=== PATIENT | male | born 1940 | race Caucasian/White ===

== ENCOUNTER → 2017-03-16 06:00 | Outpatient (REF) | payer MEDICARE, BC, SELFPAY ==
[2017-03-16 10:00] LABS: Hematocrit 36.6 % (40-54); Hemoglobin 12.3 g/dl (13.0-16.5); Mean Corp Hgb Conc 33.6 g/gl (32-36); Mean Corpuscular Volume 92.2 fL (80-94); Mean Platelet Vol. 12.2 fl (6.2-12.0); Platelet Count 181 K/mm3 (150-450); RBC Distribution Width CV 13.2 % (11.6-14.6); RBC Distribution Width SD 43.6 fl (35.1-43.9); Red Blood Count 3.97 M/mm3 (4.6-6.2); Scan Indicated on CBC? Y/N NO; White Blood Count 7.2 K/mm3 (4.4-11.0)
== END ==
LOC: OLS.WCC 06:00
PROVIDERS: Visit Provider Family Medicine
DX: Z79.899 Other long term (current) drug therapy (principal)
CPT/HCPCS: 36415; 85027

== ENCOUNTER → 2017-03-27 17:00 | Outpatient (REF) | payer MEDICARE, BC, SELFPAY ==
[2017-03-27 18:25] LABS: Color, Urine Yellow (Yellow); Glucose, Dipstick Normal (Normal); Ketone-Dipstick 5 mg/dl (Negative); Leukocyte Esterase-Dipstick Negative /ul (Negative); Nitrite-Dipstick Negative (Negative); Occult Blood-Urine 10 /ul (Negative); Protein-Dipstick 100 mg/dl (Negative); Specific Gravity, Urine 1.025 (1.002-1.030); Urine Clarity Sl. Cloudy (Clear); Urine Urobilinogen Normal (Normal)
[2017-03-27 18:27] LABS: Urine Bilirubin Dipstick 1 mg/dL (Negative)
== END ==
LOC: OLS.WCC 17:00
PROVIDERS: Visit Provider Family Medicine
DX: N39.0 Urinary tract infection, site not specified (principal)
CPT/HCPCS: 81002; 87077; 87086; 87088

== ENCOUNTER → 2017-06-30 05:00 | Outpatient (REF) | payer MEDICARE, SELFPAY ==
[2017-06-30 08:20] LABS: Hemoglobin A1c 6.2 % (4.2-6.3)
[2017-06-30 08:27] LABS: AST(SGOT) 14 U/L (15-37); Alanine Aminotransfer ALT/SGPT 16 U/L (16-61); Albumin, Serum 3.4 g/dL (3.2-5.0); Alkaline Phosphatase 73 U/L (45-117); Anion Gap 8 (5-15); BUN 21 mg/dL (7-18); Bilirubin, Direct < 0.05 mg/dL (0.00-0.30); Calcium,Total 8.4 mg/dL (8.5-10.1); Chloride 108 mmol/L (98-107); Cholesterol 95 mg/dL (200); Creatinine, Serum 0.96 mg/dL (0.70-1.30); EST Glomerular Filtration Rate 81 mL/min (>60); Est Glom Filt Rate - Afr Amer 98 mL/min (>60); Globulin 2.9 g/dL (2.2-4.2); Glucose 98 mg/dL (74-106); High Density Lipoprotein 42 mg/dL; Potassium 4.3 mmol/L (3.5-5.1); Protein, Total 6.3 g/dL (6.4-8.2); Sodium Level 141 mmol/L (136-145); Triglycerides 312 mg/dL; Very Low Density Lipoprotein 62 mg/dL (5-40)
[2017-07-02 15:01] LABS: KEPPRA (LEVETIRACETAM) 20.4 ug/mL (10.0-40.0)
== END ==
LOC: OLS.WCC 05:00
PROVIDERS: Visit Provider Family Medicine
DX: E11.9 Type 2 diabetes mellitus without complications (principal); R56.9 Unspecified convulsions; E78.5 Hyperlipidemia, unspecified; Z79.899 Other long term (current) drug therapy
CPT/HCPCS: 36415; 80048; 80061; 80076; 80177; 83036

== ENCOUNTER → 2017-09-01 05:00 | Outpatient (REF) | payer MEDICARE, SELFPAY ==
[2017-09-01 08:30] LABS: Hematocrit 32.2 % (40-54); Hemoglobin 10.6 g/dl (13.0-16.5); Mean Corp Hgb Conc 32.9 g/gl (32-36); Mean Corpuscular Hgb 30.9 pg (27.0-32.0); Mean Corpuscular Volume 93.9 fL (80-94); Platelet Count 171 K/mm3 (150-450); RBC Distribution Width CV 13.2 % (11.6-14.6); RBC Distribution Width SD 43.9 fl (35.1-43.9); Red Blood Count 3.43 M/mm3 (4.6-6.2)
[2017-09-01 08:32] LABS: Scan Indicated on CBC? Y/N NO
[2017-09-04 14:02] LABS: Phenobarbital,Serum 4 ug/mL (15-40); Primidone, Serum 4.1 ug/mL (5.0-12.0)
== END ==
LOC: OLS.WCC 05:00
PROVIDERS: Visit Provider Family Medicine
DX: R56.9 Unspecified convulsions (principal); Z79.899 Other long term (current) drug therapy
CPT/HCPCS: 36415; 80184; 80188; 85027

== ENCOUNTER 2017-09-23 11:11 | Inpatient (IN) | payer MEDICARE, SELFPAY ==
[2017-09-23] VITALS (14 sets, daily range): BP systolic 118–145; BP diastolic 63–101; PULSE 70–100; RESP 14–22; TEMP 35.9–36.5; O2SAT 93–98; BMI 25.0; BMI 26.8
--- NOTE | 2017-09-23 11:20 | EKG12_ITS ---
Test Reason : LOC Blood Pressure : / mmHG Vent. Rate : 077 BPM Atrial Rate : 077 BPM P-R Int : 166 ms QRS Dur : 092 ms QT Int : 396 ms P-R-T Axes : 049 005 035 degrees QTc Int : 448 ms Normal sinus rhythm Low voltage QRS (limb leads) Confirmed by RAFAEL COLVIN, ABDELRAHMAN ([id number]), manager editorial DEEPTI ERAZO ([id number] on 09/25/2017 2:38:45 PM Referred By: DEAN Confirmed By:ABDELRAHMAN HALL MD
--- NOTE | 2017-09-23 11:35 | RAD_ITS ---
STUDY: X-RAY CHEST REASON FOR EXAM: Male, 77 years old. PT BROUGHT IN BY EMS FROM [facility] FOR DECREASED LOC. PER [facility] PT WAS NORMAL AT 0910 TODAY AND THEN BECAME LETHARGIC ATOX2 AND HAD A BP OF 59/24. HX DEMENTIA, HTN, COPD TECHNIQUE: Single AP portable view of the chest. COMPARISON: None. FINDINGS: The lungs are clear and expanded. There is no demonstrated pleural abnormality. Normal size heart. Normal mediastinum and caitie. Normal visualized pulmonary arteries. There is atherosclerotic tortuosity of the aortic arch and descending thoracic aorta. There are diffuse degenerative changes of the visualized thoracic spine. There is degenerative osteoarthritis of the bilateral shoulders. There is no demonstrated abnormality of the visualized soft tissue structures of the upper abdomen. RAD/Chest 1 View (Portable) IMPRESSION: Degenerative changes, as described above. No demonstrated acute cardiopulmonary process. Electronically Signed: Jose Vincent MD at 12:09 EDT Tel , Service support ,
[2017-09-23 11:53] LABS: Absolute Neutrophil Count 5.7 X10^3/uL (2.0-7.7); Basophil# 0.02 X10^3/uL; Basophil% 0.3 % (0-1); Eosinophil# 0.03 X10^3/uL; Eosinophils% 0.4 % (0-5); Hematocrit 33.1 % (40-54); Hemoglobin 10.8 g/dl (13.0-16.5); Lymphocyte % 14.9 % (19-41); Mean Corp Hgb Conc 32.6 g/gl (32-36); Mean Corpuscular Hgb 30.3 pg (27.0-32.0); Mean Corpuscular Volume 92.7 fL (80-94); Mean Platelet Vol. 11.3 fl (6.2-12.0); Monocyte# 0.51 X10^3/uL; Monocyte% 6.9 % (0-10); Neutrophil # 5.72 X10^3/uL (2.7-7.7); Neutrophil % 77.4 % (47-70); Platelet Count 176 K/mm3 (150-450); RBC Distribution Width CV 13.7 % (11.6-14.6); Red Blood Count 3.57 M/mm3 (4.6-6.2); White Blood Count 7.4 K/mm3 (4.4-11.0)
[2017-09-23 11:54] LABS: POSITIVE COUNT NO; POSITIVE DIFFERENTIAL NO; POSITIVE MORPHOLOGY NO
[2017-09-23] MEDS: 0.9% Normal Saline 1,000 ML IV.SOLN. 2000 ML IV (11:58)
[2017-09-23 12:07] LABS: ALB/GLOB Ratio 1.1 RATIO (0.9-2.4); AST(SGOT) 12 U/L (15-37); Alanine Aminotransfer ALT/SGPT 13 U/L (16-61); Albumin, Serum 3.4 g/dL (3.2-5.0); Alkaline Phosphatase 86 U/L (45-117); Anion Gap 10 (5-15); BUN 19 mg/dL (7-18); BUN/Creat Ratio 16.8 RATIO (10-20); Calcium,Total 8.4 mg/dL (8.5-10.1); Chloride 103 mmol/L (98-107); Creatinine, Serum 1.13 mg/dL (0.70-1.30); EST Glomerular Filtration Rate 67 mL/min (>60); Est Glom Filt Rate - Afr Amer 81 mL/min (>60); Estimated Creatinine Clearance 57.42 ml/min; Glucose 160 mg/dL (74-106); International Normalized Ratio 1.1; Partial Thromboplast Time 25.8 Seconds (24.1-36.2); Potassium 5.5 mmol/L (3.5-5.1); Protein, Total 6.4 g/dL (6.4-8.2); Prothrombin Time (Protime)PT. 13.7 SECONDS (11.7-14.9); Sodium Level 138 mmol/L (136-145)
--- NOTE | 2017-09-23 12:34 | ED.RN ---
DR DUMONT NOTIFIED OF LACTIC RESULTS
[2017-09-23 12:35] LABS: Lactic Acid 4.7 mmol/L (0.4-2.0)
[2017-09-23 13:11] LABS: Bacteria 0 SEEN /hpf (None Seen); Red Blood Cells-Urine 0 SEEN /hpf (0-5)
[2017-09-23 13:25] LABS: Color, Urine Yellow (Yellow); Glucose, Dipstick Normal (Normal); Ketone-Dipstick 5 mg/dl (Negative); Leukocyte Esterase-Dipstick Negative /ul (Negative); Nitrite-Dipstick Negative (Negative); Occult Blood-Urine Negative /ul (Negative); Protein-Dipstick 30 mg/dl (Negative); Urine Bilirubin Dipstick Negative (Negative); Urine Clarity Clear (Clear); Urine Urobilinogen Normal (Normal)
[2017-09-23 13:40] LABS: Squamous Epithelial Cells - UA 0-5 SEEN /hpf (0-5); White Blood Cells 0-5 SEEN /hpf (0-5)
[2017-09-23 13:41] LABS: Hyaline Cast 0-5 SEEN /lpf (0-5); Mucous, Urine 1+ /hpf (<or=2+)
[2017-09-23] MEDS: 0.9% Normal Saline 1,000 ML 999 ML IV ×2 (14:28)
--- NOTE | 2017-09-23 14:54 | ED.VISSUMM ---
- ER Visit Summary Date of Service: 09/23/17 Chief Complaint: Low blood pressure History of Present Illness: The patient is a 77 M presenting from assisted living with low blood pressure. Reportedly his pressure was in the 70s systolic. He has no specific complaints. Denies pain. Per paramedics he was diaphoretic and hypotensive on arrival. Physical Examination: Vitals are within normal limits on arrival. He does appear somewhat dehydrated. Neck is supple. Heart tones are regular and without murmur. Lungs are clear bilaterally. Abdomen is soft and nontender. No focal or lateralizing neuro findings. He is at baseline mental status according to staff Test Results: His lactic acid is elevated at 0.7. White blood cell count is normal. Creatinine normal. No fever here. He was given several liters of IV fluid and remained normotensive. He has no obvious evidence of infection. Chest x-ray is clear and urine does not appear infected. Urine and blood cultures were both sent. Emergency Department Course and Treatment: His blood pressure remained normal with IV fluids. He does appear dehydrated. With a lactic acid of 4.7, and no obvious evidence of infection, I do think the safest approach is to hospitalize him overnight for observation and continued IV fluids with a repeat lactic acid. Cultures were sent. Treatment Plan: Admit to PCU. Disposition: Admit to PCU Impression: Initial encounter acute hypotension of uncertain etiology, lactic acidosis, dehydration This note was generated with [employer] dictation software. It may contain incorrect words, spelling, and punctuation that were not noted in review of the chart prior to signing ED Disposition - Plan for ED Patient: Chief Complaint: Alt LOC Referrals: Kelvin Trammell MD [Primary Care Provider] -
--- NOTE | 2017-09-23 14:58 | NURSING ---
HOSPITALIST PA IN ER
--- NOTE | 2017-09-23 14:59 | NURSING ---
PCU HYPOTENSION, DEHYDRATION, LACTIC ACIDOSIS DUSSEL/ ASHELFAH
--- NOTE | 2017-09-23 15:12 | PCM.HP.STD ---
<Verónica Monroe - Last Filed: 09/23/17 15:34> Problem List (1) Chronic airway obstruction Status: Chronic Comment: mild 120 PY hx smoking (2) Coronary artery disease Status: Chronic (3) History of TIAs Status: Chronic (4) Seizure disorder Status: Chronic (5) Hyperlipidemia Status: Chronic (6) Syncope Status: Resolved Comment: resolved. vasovagal (7) Dehydration Status: Acute (8) Normochromic normocytic anemia Status: Chronic (9) Parkinson disease Status: Chronic (10) Diabetic peripheral neuropathy Status: Chronic (11) Gait abnormality Status: Chronic Comment: History of.. 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 The patient is a 77 year old M who presents to Emergency Room due to low blood pressure at Assisted Living Facility. Blood pressure at nursing facility reported to be 70s systolically. Patient states he was kind of out of it earlier today and does not recall any specific events that brought him to ER. He states he was told he is dehydrated. Patient denies syncope, dizziness, fall. Denies recent illness. Denies nausea, vomiting, diarrhea. Denies cough, fever, chills. He has a past medical history of hypertension, hyperlipidemia, coronary artery disease, type 2 diabetes mellitus, Alzheimer's dementia, history of spontaneous intraparenchymal intracranial hemorrhage due to cerebral AVM, history of ischemic colitis, Parkinson's disease, chronic anemia, seizure disorder, COPD, chronic kidney disease. Past Medical History Past Medical History (Chronic Problems): Chronic Problems Chronic airway obstruction (Chronic) mild 120 PY hx smoking Coronary artery disease (Chronic) History of TIAs (Chronic) Seizure disorder (Chronic) Hyperlipidemia (Chronic) Normochromic normocytic anemia (Chronic) Parkinson disease (Chronic) Diabetic peripheral neuropathy (Chronic) Gait abnormality (Chronic) History of.. 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 CVD (cerebrovascular disease) (Chronic) Hypertension (Chronic) Diabetes mellitus type 2 in nonobese (Chronic) Allergies PPD Adverse Reaction (Uncoded 09/23/17 11:20) Other Home Medications: Ambulatory Orders Medication Instructions Recorded Atorvastatin Calcium [Lipitor] 40 mg PO QHS 08/31/15 Donepezil HCl 10 mg PO QHS 08/31/15 Ferrous Sulfate 325 mg PO DAILY 08/31/15 levETIRAcetam tablet [Keppra 500 mg PO BID 08/31/15 tablet] Metoprolol(XL)Succ [Toprol Xl 25 mg PO DAILY 09/01/15 (Beta Jeanette)] Multivitamins,Ther W-Minerals 1 tablet PO DAILY 09/01/15 [Multivitamin With Minerals] Sitagliptin Phosphate [Januvia] 50 mg PO DAILY 09/01/15 Buspirone HCl 15 mg PO BID 10/23/15 Metformin HCl [Glucophage] 1,000 mg PO BIDCM 10/23/15 Omeprazole [Prilosec] 20 mg PO DAILY 10/23/15 Acetaminophen [Tylenol] 650 mg PO Q4H PRN 09/23/17 Carbidopa/Levodopa [Carbidopa-Levo 1 each PO TID 09/23/17 25-100 mg Odt] Docusate Sodium [Colace] 200 mg PO QHS 09/23/17 Escitalopram Oxalate [Lexapro] 5 mg PO DAILY 09/23/17 Guaifenesin [Robitussin] 10 ml PO Q4H PRN PRN 09/23/17 Hydrocodone/Acetaminophen [[place] 1 each PO Q4H PRN 09/23/17 5-325 Tablet] Primidone [Mysoline] 50 mg PO BID 09/23/17 Tamsulosin HCl [Flomax] 0.4 mg PO DAILY@1730 09/23/17 Surgical History: cholecystectomy, TURP, - - craniontomy for R AVM 1997 Psychiatric History: No pertinent psych hx Lives: - - With in Assisted Living Facility Smoking Status: Former smoker Alcohol: None Drugs: None - *Family History Maternal History Items: No pertinent history, - - no premature cardiac Paternal History Items: No pertinent history, - - no premature cardiac Review of Systems Constitutional: Denies: Chills, Fever, Weight Change HEENT: Denies: Head Aches, Sinus Congestion, Sinus Drainage Cardiovascular: Denies: Chest Pain, Edema, Palpitations, Syncope Respiratory: Denies: Cough, Shortness of breath at rest, Sputum production Gastrointestinal: Denies: Abdominal Pain, Nausea, Vomiting Genitourinary: Denies: Dysuria Musculoskeletal: Denies: Joint Pain, Joint Tenderness Skin: Denies: Rash, Wounds Neurological: Denies: Numbness, Tingling, Focal weakness Psychiatric: Denies: Anxiety, Depression, Homicidal Ideations, Suicidal Ideations Hematologic/ Lymphatic: Denies: Easy Bruising, Easy Bleeding VTE Information - Inpt Only VTE Present on Admission: No VTE Mechan Device Prophylaxis: None VTE Pharm Prophylaxis ordered?: Yes - Physical Exam General: Alert, Cooperative, No apparent distress, - - Pleasant HEENT: Atraumatic, PERRLA, EOMI, Normocephalic Oral: Dry Mucosa Neck: Supple, No JVD, Negative Carotid Bruits Lungs: Clear to auscultation, Normal air movement Cardiovascular: Regular rate, Regular Rhythm, Normal S1, Normal S2, No murmurs Abdomen: Bowel Sounds Present, Soft, Non Tender, Non-Distended Extremities: No clubbing, No cyanosis, No edema, Capillary Refill Less than 3 Seconds Skin: No rashes, No breakdown Musculoskeletal: No Tenderness to Palpation of Joints or Extremities Neurological: Cranial nerves II-XII grossly intact, Neuro grossly intact Psych/Mental Status: Normal Affect, Appropriate Vital Signs Temp Pulse Resp BP Pulse Ox 97.0 F L 76 14 132/67 H 96 09/23/17 14:28 09/23/17 14:28 09/23/17 14:28 09/23/17 14:28 09/23/17 14:28 Oxygen Flow Rate (L/min) 2 Oxygen Delivery Method Room Air Weight: 79.1 kg Body Mass Index (BMI) 25.0 Finger Stick Blood Glucose 194 Laboratory Tests Past 24 Hrs 09/23/17 09/23/17 09/23/17 11:20 11:20 11:20 WBC 7.4 RBC 3.57 L Hgb 10.8 L Hct 33.1 L MCV 92.7 MCH 30.3 MCHC 32.6 RDW 13.7 RDW Differential 46.0 H Plt Count 176 MPV 11.3 Immature Gran % (Auto) 0.100 Neut % (Auto) 77.4 H Lymph % (Auto) 14.9 L [place] % (Auto) 6.9 Eos % (Auto) 0.4 Baso % (Auto) 0.3 Absolute Neuts (auto) 5.7 Absolute Lymphs (auto) 1.10 Total Counted Not Reportable PT 13.7 INR 1.1 APTT 25.8 Sodium 138 Potassium 5.5 H Chloride 103 Carbon Dioxide 25.0 Anion Gap 10 BUN 19 H Creatinine 1.13 Estim Creat Clear Calc 57.42 Est GFR (MDRD) Af Amer 81 Est GFR (MDRD) Non-Af 67 BUN/Creatinine Ratio 16.8 Glucose 160 H Lactic Acid Calcium 8.4 L Total Bilirubin 0.20 AST 12 L ALT 13 L Alkaline Phosphatase 86 Troponin I < 0.015 Total Protein 6.4 Albumin 3.4 Globulin 3.0 Albumin/Globulin Ratio 1.1 Urine Color Urine Clarity Urine pH Ur Specific [place] Urine Protein Urine Glucose (UA) Urine Ketones Urine Occult Blood Urine Nitrite Urine Bilirubin Urine Urobilinogen Ur Leukocyte Esterase Urine RBC Urine WBC Ur Squamous Epith Cells Urine Bacteria Hyaline Casts Urine Mucus 09/23/17 09/23/17 11:32 13:05 WBC RBC Hgb Hct MCV MCH MCHC RDW RDW Differential Plt Count MPV Immature Gran % (Auto) Neut % (Auto) Lymph % (Auto) [place] % (Auto) Eos % (Auto) Baso % (Auto) Absolute Neuts (auto) Absolute Lymphs (auto) Total Counted PT INR APTT Sodium Potassium Chloride Carbon Dioxide Anion Gap BUN Creatinine Estim Creat Clear Calc Est GFR (MDRD) Af Amer Est GFR (MDRD) Non-Af BUN/Creatinine Ratio Glucose Lactic Acid 4.7 H* Calcium Total Bilirubin AST ALT Alkaline Phosphatase Troponin I Total Protein Albumin Globulin Albumin/Globulin Ratio Urine Color Yellow Urine Clarity Clear Urine pH 5.0 Ur Specific [place] 1.010 Urine Protein 30 H Urine Glucose (UA) Normal Urine Ketones 5 H Urine Occult Blood Negative Urine Nitrite Negative Urine Bilirubin Negative Urine Urobilinogen Normal Ur Leukocyte Esterase Negative Urine RBC 0 SEEN Urine WBC 0-5 SEEN Ur Squamous Epith Cells 0-5 SEEN Urine Bacteria 0 SEEN Hyaline Casts 0-5 SEEN Urine Mucus 1+ Assessment/Plan All Active Problems Dehydration (Acute) Cognitive deficits (Resolved) History of Hematemesis (Resolved) History of Ischemic Colitis (Resolved) History of tobacco use (Resolved) History of upper gastrointestinal bleeding (Resolved) Syncope (Resolved) 1. Hypotension, secondary to mild dehydration-patient denies recent illness. Denies nausea, vomiting, diarrhea. Hypotension resolved after IV fluids. Continue IV fluids. Monitor blood pressure. Complete orthostatic vitals in a.m. 2. Hyperkalemia-secondary to #1. Repeat potassium this evening and in a.m. 3. Lactic acidosis-no signs of infectious etiology. Suspect secondary to #1. Repeat lactic acid per protocol. Afebrile. Chest x-ray shows no acute process. Urinalysis unremarkable. Blood and urine cultures pending. Continue IV fluids as noted above. 4. Alzheimer's dementia/Parkinson's disease-resides with in assisted living facility. PT/OT. Continue home regimen including buspirone, carbidopa-levo, donepezil, Lexapro. 5. Coronary artery disease-denies chest pain. EKG without evidence of ischemia. Troponin negative. Continue statin, metoprolol. 6. Type 2 diabetes mellitus-hold metformin. Continue Januvia. Accu-Cheks before meals at bedtime with sliding scale insulin. Hemoglobin A1c in June 2017 6.2%. 7. Chronic kidney disease stage II-stable, monitor BMP. 8. Hypertension-continue home metoprolol regimen. 9. Hyperlipidemia-continue statin. 10. Mild chronic COPD-no acute exacerbation. 11. History of spontaneous intraparenchymal intracranial hemorrhage due to cerebral AVM 12. Chronic normochromic normocytic anemia-continue iron supplementation. 13. History of seizure disorder-continue home Keppra, primidone regimen. 14. History of ischemic colitis 15. BPH-continue home Flomax regimen. 16. GERD-continue PPI. DVT prophylaxis-heparin subcu. This patient was seen by [facility] under the supervision of Dr. Lorenzo. <Ashish Lorenzo - Last Filed: 09/23/17 15:43> History of Present Illness The patient is a 77 year old M [] Past Medical History Allergies PPD Adverse Reaction (Uncoded 09/23/17 11:20) Other - Physical Exam Vital Signs Temp Pulse Resp BP Pulse Ox 97.0 F L 76 14 132/67 H 96 09/23/17 14:28 09/23/17 14:28 09/23/17 14:28 09/23/17 14:28 09/23/17 14:28 Oxygen Flow Rate (L/min) 2 Oxygen Delivery Method Room Air Weight: 174 lb 6.17 oz Body Mass Index (BMI) 25.0 Finger Stick Blood Glucose 194 Laboratory Tests Past 24 Hrs 09/23/17 09/23/17 09/23/17 11:20 11:20 11:20 WBC 7.4 RBC 3.57 L Hgb 10.8 L Hct 33.1 L MCV 92.7 MCH 30.3 MCHC 32.6 RDW 13.7 RDW Differential 46.0 H Plt Count 176 MPV 11.3 Immature Gran % (Auto) 0.100 Neut % (Auto) 77.4 H Lymph % (Auto) 14.9 L [place] % (Auto) 6.9 Eos % (Auto) 0.4 Baso % (Auto) 0.3 Absolute Neuts (auto) 5.7 Absolute Lymphs (auto) 1.10 Total Counted Not Reportable PT 13.7 INR 1.1 APTT 25.8 Sodium 138 Potassium 5.5 H Chloride 103 Carbon Dioxide 25.0 Anion Gap 10 BUN 19 H Creatinine 1.13 Estim Creat Clear Calc 57.42 Est GFR (MDRD) Af Amer 81 Est GFR (MDRD) Non-Af 67 BUN/Creatinine Ratio 16.8 Glucose 160 H Lactic Acid Calcium 8.4 L Total Bilirubin 0.20 AST 12 L ALT 13 L Alkaline Phosphatase 86 Troponin I < 0.015 Total Protein 6.4 Albumin 3.4 Globulin 3.0 Albumin/Globulin Ratio 1.1 Urine Color Urine Clarity Urine pH Ur Specific [place] Urine Protein Urine Glucose (UA) Urine Ketones Urine Occult Blood Urine Nitrite Urine Bilirubin Urine Urobilinogen Ur Leukocyte Esterase Urine RBC Urine WBC Ur Squamous Epith Cells Urine Bacteria Hyaline Casts Urine Mucus 09/23/17 09/23/17 11:32 13:05 WBC RBC Hgb Hct MCV MCH MCHC RDW RDW Differential Plt Count MPV Immature Gran % (Auto) Neut % (Auto) Lymph % (Auto) [place] % (Auto) Eos % (Auto) Baso % (Auto) Absolute Neuts (auto) Absolute Lymphs (auto) Total Counted PT INR APTT Sodium Potassium Chloride Carbon Dioxide Anion Gap BUN Creatinine Estim Creat Clear Calc Est GFR (MDRD) Af Amer Est GFR (MDRD) Non-Af BUN/Creatinine Ratio Glucose Lactic Acid 4.7 H* Calcium Total Bilirubin AST ALT Alkaline Phosphatase Troponin I Total Protein Albumin Globulin Albumin/Globulin Ratio Urine Color Yellow Urine Clarity Clear Urine pH 5.0 Ur Specific [place] 1.010 Urine Protein 30 H Urine Glucose (UA) Normal Urine Ketones 5 H Urine Occult Blood Negative Urine Nitrite Negative Urine Bilirubin Negative Urine Urobilinogen Normal Ur Leukocyte Esterase Negative Urine RBC 0 SEEN Urine WBC 0-5 SEEN Ur Squamous Epith Cells 0-5 SEEN Urine Bacteria 0 SEEN Hyaline Casts 0-5 SEEN Urine Mucus 1+ Assessment/Plan Hospitalist note: I am seeing this patient in conjunction with Verónica Monroe. I independently seen and examined the patient. History and physical, laboratory data and imaging studies reviewed and I agree with above admission and treatment plan. Patient was brought to the ER from assisted living because of low blood pressure, reportedly his systolic blood pressure was in 70s. At this time, he has no complaints. He mentioned that he was dehydrated and he was about to pass out or actually passed out which is not clear. No chest pain or shortness of breath. Denied abdominal pain, nausea vomiting. Denies constipation or diarrhea. He had a history of seizure disorder and he has been on Keppra and primidone and his seizures seem to be under control. He had a history of type 2 diabetes mellitus and he has been on metformin with good control, most recent hemoglobin A1c was on June, and it was 6.2. He had a history of dementia and he has been on donepezil and carbidopa levodopa. In the emergency department, his blood pressure was stable after he received IV fluids by paramedics, other vital signs were stable. His routine blood work was remarkable for hemoglobin of 10.8 g/dL, potassium 5.5. Lactic acid was 4.7. LFT was unremarkable. Urine analysis revealed no evidence of acute cystitis. Troponin was negative. Chest x-ray showed no acute infiltrate, no evidence of pneumonia. EKG revealed normal sinus rhythm, normal QRS, normal QTC and no acute ischemic changes. - Physical Exam General: Alert, Cooperative, No apparent distress. HEENT: Atraumatic, PERRLA, EOMI. Neck: Supple, No JVD, Negative Carotid Bruits, Trachea Midline, Thyroid Normal. Lungs: Clear to auscultation, Normal air movement, No rhonchi, No wheeze, No rales. Cardiovascular: Regular rate, Regular Rhythm, Normal S1, Normal S2, PMI Normal. Abdomen: Bowel Sounds Present, Soft, Non Tender, Non-Distended, No Hepato-splenomegaly. Extremities: No clubbing, No cyanosis, No edema Skin: No rashes, No breakdown Neurological: Neuro grossly intact, cranial nerves are intact, normal power. Vital Signs are stable at this time. Assessment and plan: #1 hypovolemic shock: With transient hypotension likely due to dehydration. No evidence of acute illness. Reportedly, systolic blood pressure was in the 70s at the assisted living, improved with IV fluids and stable at this time. His lactic acid is 4.7. No evidence of infection. He received a total of 4 L of IV fluids. Plan to admit to PCU, cardiac monitoring, continue maintenance IV fluids, repeat lactic acid in 3 hours, repeat orthostatic vitals tomorrow morning, repeat CBC and BMP tomorrow morning, PT OT evaluation and treatment. #2 lactic acidosis: Again, likely due to hypotension. No evidence of infection. Urine and blood culture sent. No indication for IV antibiotics. Plan to continue IV fluids, repeat lactic acid in 3 hours. #3 mild hyperkalemia: Without EKG changes. Potassium is 5.5. Plan for IV fluids, repeat potassium at 8 PM tonight. #4 other chronic medical problems: Stable, continue home medications as above. This note was generated with [employer] software. It may contain incorrect words, spelling, and punctuation that were not noted in checking the note before signing. Code Visit Inpatient E&M: 26894 Init Hosp L3
[2017-09-23 15:46] LABS: Reflex Lactate? Y
--- NOTE | 2017-09-23 15:54 | CM.ED ---
CM Initial Assessment: Patient resides at [facility] and confirms that he would like to return there upon discharge from the hospital. Patient shares a room, at [facility], with his . Call placed to [facility] and spoke with RN, Rafael. Updates provided and RN states he will notify the patient's of admission. No POA/Living will found on echart. DC Plan: Return to [facility].
--- NOTE | 2017-09-23 16:08 | NURSING ---
REPORT CALLED TO ALVA VILLARREAL AT [facility].
[2017-09-23] MEDS: 0.9% Normal Saline 1,000 ML 150 ML IV (16:17)
[2017-09-23 17:06] LABS: Bedside Glucose 122 mg/dL (70-110)
[2017-09-23 17:10] LABS: Lactic Acid 2.4 mmol/L (0.4-2.0)
[2017-09-23] MEDS: metFORMIN HCl 1,000 MG Tablet 1000 MG PO (18:20)
[2017-09-23 20:18] LABS: Potassium 4.9 mmol/L (3.5-5.1)
[2017-09-23] MEDS: Donepezil HCl 10 MG Tablet PO (21:20)
[2017-09-23] MEDS: Atorvastatin Calcium 40 MG Tablet PO (21:20)
[2017-09-23] MEDS: Docusate Sodium 100 MG Capsule 200 MG PO (21:20)
[2017-09-23] MEDS: levETIRAcetam 500 MG Tablet PO (21:20)
[2017-09-23] MEDS: Primidone 50 MG Tablet PO (21:21)
[2017-09-23] MEDS: busPIRone 15 MG TABLET PO (21:21)
[2017-09-23] MEDS: Carbidopa/Levodopa 25/100 Tablet PO (21:22)
[2017-09-23 22:41] LABS: Bedside Glucose 139 mg/dL (70-110)
[2017-09-24] VITALS (13 sets, daily range): BP systolic 122–194; BP diastolic 60–81; PULSE 61–80; RESP 16–18; TEMP 36.6–36.9; O2SAT 93–97
[2017-09-24] MEDS: 0.9% Normal Saline 1,000 ML 100 ML IV ×3 (03:07→21:48)
[2017-09-24 06:27] LABS: Absolute Neutrophil Count 4.3 X10^3/uL (2.0-7.7); Basophil# 0.01 X10^3/uL; Basophil% 0.2 % (0-1); Eosinophil# 0.14 X10^3/uL; Eosinophils% 2.2 % (0-5); Hematocrit 27.7 % (40-54); Lymphocyte % 17.1 % (19-41); Mean Corp Hgb Conc 32.5 g/gl (32-36); Mean Corpuscular Hgb 30.7 pg (27.0-32.0); Mean Corpuscular Volume 94.5 fL (80-94); Mean Platelet Vol. 11.2 fl (6.2-12.0); Neutrophil # 4.27 X10^3/uL (2.7-7.7); Neutrophil % 66.3 % (47-70); Platelet Count 155 K/mm3 (150-450); RBC Distribution Width CV 13.5 % (11.6-14.6); RBC Distribution Width SD 44.5 fl (35.1-43.9); Red Blood Count 2.93 M/mm3 (4.6-6.2); White Blood Count 6.4 K/mm3 (4.4-11.0)
[2017-09-24 06:41] LABS: Anion Gap 6 (5-15); BUN 11 mg/dL (7-18); BUN/Creat Ratio 16.5 RATIO (10-20); Calcium,Total 7.5 mg/dL (8.5-10.1); Chloride 112 mmol/L (98-107); Creatinine, Serum 0.67 mg/dL (0.70-1.30); EST Glomerular Filtration Rate 123 mL/min (>60); Est Glom Filt Rate - Afr Amer 149 mL/min (>60); Estimated Creatinine Clearance 52.62 ml/min; Glucose 102 mg/dL (74-106); Potassium 4.3 mmol/L (3.5-5.1); Sodium Level 142 mmol/L (136-145)
[2017-09-24 06:57] LABS: POSITIVE COUNT NO; POSITIVE DIFFERENTIAL NO; POSITIVE MORPHOLOGY NO
[2017-09-24] MEDS: Carbidopa/Levodopa 25/100 Tablet PO ×3 (07:18→21:47)
[2017-09-24 07:20] LABS: Bedside Glucose 110 mg/dL (70-110)
[2017-09-24] MEDS: Ferrous Sulfate 325 MG Tablet PO (08:48)
[2017-09-24] MEDS: metFORMIN HCl 1,000 MG Tablet 1000 MG PO ×2 (08:48→16:23)
[2017-09-24] MEDS: levETIRAcetam 500 MG Tablet PO ×2 (08:49→21:48)
[2017-09-24] MEDS: Escitalopram Oxalate 10 MG Tablet 5 MG PO (08:49)
[2017-09-24] MEDS: busPIRone 15 MG TABLET PO ×2 (08:49→21:47)
[2017-09-24] MEDS: Enoxaparin 30 MG/0.3 ML Syringe SC (08:50)
[2017-09-24] MEDS: Pantoprazole Sodium 20 MG Tablet PO (08:50)
[2017-09-24] MEDS: Primidone 50 MG Tablet PO ×2 (08:50→21:47)
[2017-09-24] MEDS: Metoprolol(XL)Succ 25 MG Tablet PO (08:50)
[2017-09-24] MEDS: LINAGLIPTIN 5 MG TABLET PO (08:51)
--- NOTE | 2017-09-24 11:39 | CASEMGMT ---
Patient is from [facility]. MODESTA spoke with Adilene at [facility] and he does not need a pre-cert to return. MODESTA faxed her updates. After talking with physician patient will not be d/c today, but possibly tomorrow. MODESTA left a message for Adilene letting her know this information. Plan: Return to [facility] under intermediate level of care. Kelle NGUYEN MSW
[2017-09-24 11:51] LABS: Bedside Glucose 153 mg/dL (70-110)
--- NOTE | 2017-09-24 13:15 | CHAPLAIN ---
Type of Pastoral Visit _x__ Initial Visit ___ Follow-up Visit ___ On-call Visit ___ General Patient Visit ___ Spiritual Assessment ___ Family Conference ___ Bereavement ___ Rapid Response ___ Code Blue ___ Other (describe below) Pastoral Care Referral From _x__ Patient ___ Family ___ Nurse ___ Physician ___ Bakery Team Member ___ Seed Expert ___ Other (describe below) Sacrament/Intervention _x__ Active listening ___ Anointing ___ Restorationism ___ Bereavement ___ Communion _x__ Niki exploration ___ _x__ Life review _x__ Prayer ___ Reconciliation ___ Sacrament of Sick _x__ Supportive presence ___ Wedding ___ Other (describe below) Pastoral Comments patient expressed delight in talking with a joint cutter and expounded on his own niki; pt was not able to answer some basic questions about his own life; pt was able to talk about his mgmt consultant and family with clarity; pt requested a prayer
--- NOTE | 2017-09-24 14:20 | PCM.PROGNOTE ---
<Duke Oden - Last Filed: 09/24/17 14:20> Subjective: Thomas is confused today. He cannot tell me why he is here, where he came from, why he came in, where he normally lives. He appears to be comfortable. He has no complaints. He has no abdominal pain, he says he has not had a bowel movement in several days, he has no nausea or vomiting. He has no shortness of breath or chest pain. He is tolerating the catheter which he normally does not have-we will remove this today. - Physical Exam General: Alert, Cooperative, Confused, - - Oriented ?1 HEENT: Atraumatic, PERRLA, EOMI, Normocephalic Neck: Supple, No JVD, Negative Carotid Bruits Lungs: Clear to auscultation, Normal air movement Cardiovascular: Regular rate, No murmurs Abdomen: Bowel Sounds Present, Soft, Non Tender Extremities: No edema, Capillary Refill Less than 3 Seconds Skin: No rashes, No breakdown Musculoskeletal: No Tenderness to Palpation of Joints or Extremities Neurological: Cranial nerves II-XII grossly intact Psych/Mental Status: Normal Affect, Appropriate Vital Signs Temp Pulse Resp BP Pulse Ox 98.1 F 65 18 145/77 H 95 09/24/17 09:10 09/24/17 11:05 09/24/17 09:10 09/24/17 09:10 09/24/17 09:10 Oxygen Delivery Method Room Air Weight: 70.8 kg Body Mass Index (BMI) 26.8 Orthostatic Vital Signs Start: 09/24/17 07:09 Freq: q24h Status: Active Protocol: Activity Type Activity Date Activity User E-Sign Co-Sign Detail Recorded Client Recorded Date Recorded By Document 09/24/17 07:05 CAD [id number] 09/24/17 07:14 CAD 09/24/17 07:05 Orthostatic Vitals Standing -Blood Pressure (90/60-120/80) 135/60 H -Extremity Use Right Arm -Pulse Rate (60-100) 80 Sitting -Blood Pressure (90/60-120/80) 194/71 H -Extremity Use Right Arm -Pulse Rate (60-100) 64 Lying -Blood Pressure (90/60-120/80) 183/81 H -Extremity Use Right Arm -Pulse Rate (60-100) 71 Intake and Output for Last 24 Hours 09/22/17 09/23/17 09/24/17 23:59 23:59 23:59 Intake Total 353 / 353 2047 / 2047 Output Total 1075 / 1075 1475 / 1475 Balance -722 / -722 572 / 572 Laboratory Tests Past 24 Hrs 09/23/17 09/23/17 09/24/17 16:15 19:58 06:05 WBC 6.4 RBC 2.93 L Hgb 9.0 L Hct 27.7 L MCV 94.5 H MCH 30.7 MCHC 32.5 RDW 13.5 RDW Differential 44.5 H Plt Count 155 MPV 11.2 Immature Gran % (Auto) 0.200 Neut % (Auto) 66.3 Lymph % (Auto) 17.1 L [place] % (Auto) 14.0 H Eos % (Auto) 2.2 Baso % (Auto) 0.2 Absolute Neuts (auto) 4.3 Absolute Lymphs (auto) 1.10 Total Counted Not Reportable Sodium Potassium 4.9 Chloride Carbon Dioxide Anion Gap BUN Creatinine Estim Creat Clear Calc Est GFR (MDRD) Af Amer Est GFR (MDRD) Non-Af BUN/Creatinine Ratio Glucose Lactic Acid 2.4 H Calcium 09/24/17 06:05 WBC RBC Hgb Hct MCV MCH MCHC RDW RDW Differential Plt Count MPV Immature Gran % (Auto) Neut % (Auto) Lymph % (Auto) [place] % (Auto) Eos % (Auto) Baso % (Auto) Absolute Neuts (auto) Absolute Lymphs (auto) Total Counted Sodium 142 Potassium 4.3 Chloride 112 H Carbon Dioxide 24.0 Anion Gap 6 BUN 11 Creatinine 0.67 L Estim Creat Clear Calc 52.62 Est GFR (MDRD) Af Amer 149 Est GFR (MDRD) Non-Af 123 BUN/Creatinine Ratio 16.5 Glucose 102 Lactic Acid Calcium 7.5 L POC Glucose 09/24/17 09/24/17 09/23/17 11:27 07:06 21:18 POC Glucose 153 H 110 139 H 09/23/17 16:53 POC Glucose 122 H Medical Necessity - Tobacco Use Smoking Status: Former smoker Assessment/Plan All Active Problems Dehydration (Acute) Cognitive deficits (Resolved) History of Hematemesis (Resolved) History of Ischemic Colitis (Resolved) History of tobacco use (Resolved) History of upper gastrointestinal bleeding (Resolved) Syncope (Resolved) 1. Acute metabolic encephalopathy secondary to dehydration-improved. 2. Lactic acidosis secondary to above-resolved. UA negative. Afebrile, no white count. No events on tele. CXR neg. Hx ischemic colitis but no abdominal complaints, benign abdomen. 3. Transient hypotension-secondary to dehydration-resolved with IV bolus administration 4. Orthostatic hypotension-suspect secondary to Parkinson's autonomic dysfunction. 5. Hyperkalemia-resolved 6. Alzheimer's disease-very confused. Continue home meds. Avoid anticholinergics 7. CKD stage II-stable 8. Hypertension-monitor closely. 9. Hyperlipidemia-on statin 10. COPD-stable no respiratory complaints 11. Seizure disorder-continue home regimen 12. BPH-on Flomax-Clark out today with voiding trial. 13. Type 2 diabetes mellitus-Metformin held at admission, Tradjenta continued, plan to resume metformin at discharge 14. Other chronic medical conditions stable DVT prophylaxis: SCDs Discharge planning: If he remained stable overnight return to Assisted living / SNF tomorrow This patient was seen by Duke Oden PA-C under the supervision of Doctor Lucio. <Bernardo Valdes - Last Filed: 09/24/17 16:23> Subjective: Patient is confused and disoriented. His advanced dementia and lives in custodial. - Physical Exam General: Confused Lungs: No rhonchi, No wheeze, Diminished Cardiovascular: Regular rate, Normal S1, Normal S2, No murmurs Abdomen: Bowel Sounds Present, Soft, Non Tender Extremities: No edema Musculoskeletal: Arthritic Changes, Muscle Wasting Vital Signs Temp Pulse Resp BP Pulse Ox 98.5 F 62 16 122/70 H 97 09/24/17 15:10 09/24/17 15:10 09/24/17 15:10 09/24/17 15:10 09/24/17 15:10 Oxygen Delivery Method Room Air Weight: 156 lb 1.396 oz Body Mass Index (BMI) 26.8 Orthostatic Vital Signs Start: 09/24/17 07:09 Freq: q24h Status: Active Protocol: Activity Type Activity Date Activity User E-Sign Co-Sign Detail Recorded Client Recorded Date Recorded By Document 09/24/17 07:05 CAD [id number] 09/24/17 07:14 CAD 09/24/17 07:05 Orthostatic Vitals Standing -Blood Pressure (90/60-120/80) 135/60 H -Extremity Use Right Arm -Pulse Rate (60-100) 80 Sitting -Blood Pressure (90/60-120/80) 194/71 H -Extremity Use Right Arm -Pulse Rate (60-100) 64 Lying -Blood Pressure (90/60-120/80) 183/81 H -Extremity Use Right Arm -Pulse Rate (60-100) 71 Intake and Output for Last 24 Hours 09/22/17 09/23/17 09/24/17 23:59 23:59 23:59 Intake Total 353 / 353 2046 / 2047 Output Total 1075 / 1075 1475 / 1475 Balance -722 / -722 572 / 572 Laboratory Tests Past 24 Hrs 09/23/17 09/23/17 09/24/17 16:15 19:58 06:05 WBC 6.4 RBC 2.93 L Hgb 9.0 L Hct 27.7 L MCV 94.5 H MCH 30.7 MCHC 32.5 RDW 13.5 RDW Differential 44.5 H Plt Count 155 MPV 11.2 Immature Gran % (Auto) 0.200 Neut % (Auto) 66.3 Lymph % (Auto) 17.1 L [place] % (Auto) 14.0 H Eos % (Auto) 2.2 Baso % (Auto) 0.2 Absolute Neuts (auto) 4.3 Absolute Lymphs (auto) 1.10 Total Counted Not Reportable Sodium Potassium 4.9 Chloride Carbon Dioxide Anion Gap BUN Creatinine Estim Creat Clear Calc Est GFR (MDRD) Af Amer Est GFR (MDRD) Non-Af BUN/Creatinine Ratio Glucose Lactic Acid 2.4 H Calcium 09/24/17 06:05 WBC RBC Hgb Hct MCV MCH MCHC RDW RDW Differential Plt Count MPV Immature Gran % (Auto) Neut % (Auto) Lymph % (Auto) [place] % (Auto) Eos % (Auto) Baso % (Auto) Absolute Neuts (auto) Absolute Lymphs (auto) Total Counted Sodium 142 Potassium 4.3 Chloride 112 H Carbon Dioxide 24.0 Anion Gap 6 BUN 11 Creatinine 0.67 L Estim Creat Clear Calc 52.62 Est GFR (MDRD) Af Amer 149 Est GFR (MDRD) Non-Af 123 BUN/Creatinine Ratio 16.5 Glucose 102 Lactic Acid Calcium 7.5 L POC Glucose 09/24/17 09/24/17 09/23/17 11:27 07:06 21:18 POC Glucose 153 H 110 139 H 09/23/17 16:53 POC Glucose 122 H Assessment/Plan This patient was seen in conjunction with [facility] FOUNTAIN. I have independently interviewed and examined the patient and reviewed pertinent history, examination findings, laboratory and plan of management. I have reviewed the note and agree with the documented findings with the few additional points. In brief, patient is admitted for acute metabolic encephalopathy secondary to dehydration and lactic acidosis. Lactic acidosis probably from transient hypotension and hypoperfusion although sepsis unlikely. UA is negative. blood cultures and urine culture are pending. I have discussed my assessment with [facility] and orders have been reviewed. Laboratory Results 09/23/17 16:15: Lactic Acid 2.4 H 09/23/17 16:53: POC Glucose 122 H 09/23/17 19:58: Potassium 4.9 09/23/17 21:18: POC Glucose 139 H 09/24/17 06:05: WBC 6.4, RBC 2.93 L, Hgb 9.0 L, Hct 27.7 L, MCV 94.5 H, MCH 30.7, MCHC 32.5, RDW 13.5, RDW Differential 44.5 H, Plt Count 155, MPV 11.2, Immature Gran % (Auto) 0.200, Neut % (Auto) 66.3, Lymph % (Auto) 17.1 L, [place] % (Auto) 14.0 H, Eos % (Auto) 2.2, Baso % (Auto) 0.2, Absolute Neuts (auto) 4.3, Absolute Lymphs (auto) 1.10, Total Counted Not Reportable 09/24/17 06:05: Sodium 142, Potassium 4.3, Chloride 112 H, Carbon Dioxide 24.0, Anion Gap 6, BUN 11, Creatinine 0.67 L, Estim Creat Clear Calc 52.62, Est GFR (MDRD) Af Amer 149, Est GFR (MDRD) Non-Af 123, BUN/Creatinine Ratio 16.5, Glucose 102, Calcium 7.5 L 09/24/17 07:06: POC Glucose 110 09/24/17 11:27: POC Glucose 153 H Clinical Impression(s) from Imaging Studies Chest X-Ray 09/23/17 11:35 IMPRESSION: Degenerative changes, as described above. No demonstrated acute cardiopulmonary process. Electronically Signed: Jose Vincent MD at 12:09 EDT Tel , Service support , Code Visit Inpatient E&M: [id number] Subs Hosp L3
--- NOTE | 2017-09-24 14:29 | PN_ITS ---
<Duke Oden - Last Filed: 09/24/17 14:20> Subjective: Thomas is confused today. He cannot tell me why he is here, where he came from , why he came in, where he normally lives. He appears to be comfortable. He has no complaints. He has no abdominal pain, he says he has not had a bowel movement in several days, he has no nausea or vomiting. He has no shortness of breath or chest pain. He is tolerating the catheter which he normally does not have-we will remove this today. - Physical Exam General: Alert, Cooperative, Confused, - - Oriented ?1 HEENT: Atraumatic, PERRLA, EOMI, Normocephalic Neck: Supple, No JVD, Negative Carotid Bruits Lungs: Clear to auscultation, Normal air movement Cardiovascular: Regular rate, No murmurs Abdomen: Bowel Sounds Present, Soft, Non Tender Extremities: No edema, Capillary Refill Less than 3 Seconds Skin: No rashes, No breakdown Musculoskeletal: No Tenderness to Palpation of Joints or Extremities Neurological: Cranial nerves II-XII grossly intact Psych/Mental Status: Normal Affect, Appropriate Vital Signs Temp Pulse Resp BP Pulse Ox 98.1 F 65 18 145/77 H 95 09/24/17 09:10 09/24/17 11:05 09/24/17 09:10 09/24/17 09:10 09/24/17 09:10 Oxygen Delivery Method Room Air Weight: 70.8 kg Body Mass Index (BMI) 26.8 Orthostatic Vital Signs Start: 09/24/17 07:09 Freq: q24h Status: Active Protocol: Activity Type Activity Date Activity User E-Sign Co-Sign Detail Recorded Client Recorded Date Recorded By Document 09/24/17 07:05 CAD [id number] 09/24/17 07:14 CAD 09/24/17 07:05 Orthostatic Vitals Standing -Blood Pressure (90/60-120/80) 135/60 H -Extremity Use Right Arm -Pulse Rate (60-100) 80 Sitting -Blood Pressure (90/60-120/80) 194/71 H -Extremity Use Right Arm -Pulse Rate (60-100) 64 Lying -Blood Pressure (90/60-120/80) 183/81 H -Extremity Use Right Arm -Pulse Rate (60-100) 71 Intake and Output for Last 24 Hours 09/22/17 09/23/17 09/24/17 23:59 23:59 23:59 Intake Total 353 / 353 2047 / 2047 Output Total 1075 / 1075 1475 / 1475 Balance -722 / -722 572 / 572 Laboratory Tests Past 24 Hrs 09/23/17 09/23/17 09/24/17 16:15 19:58 06:05 WBC 6.4 RBC 2.93 L Hgb 9.0 L Hct 27.7 L MCV 94.5 H MCH 30.7 MCHC 32.5 RDW 13.5 RDW Differential 44.5 H Plt Count 155 MPV 11.2 Immature Gran % (Auto) 0.200 Neut % (Auto) 66.3 Lymph % (Auto) 17.1 L [place] % (Auto) 14.0 H Eos % (Auto) 2.2 Baso % (Auto) 0.2 Absolute Neuts (auto) 4.3 Absolute Lymphs (auto) 1.10 Total Counted Not Reportable Sodium Potassium 4.9 Chloride Carbon Dioxide Anion Gap BUN Creatinine Estim Creat Clear Calc Est GFR (MDRD) Af Amer Est GFR (MDRD) Non-Af BUN/Creatinine Ratio Glucose Lactic Acid 2.4 H Calcium 09/24/17 06:05 WBC RBC Hgb Hct MCV MCH MCHC RDW RDW Differential Plt Count MPV Immature Gran % (Auto) Neut % (Auto) Lymph % (Auto) [place] % (Auto) Eos % (Auto) Baso % (Auto) Absolute Neuts (auto) Absolute Lymphs (auto) Total Counted Sodium 142 Potassium 4.3 Chloride 112 H Carbon Dioxide 24.0 Anion Gap 6 BUN 11 Creatinine 0.67 L Estim Creat Clear Calc 52.62 Est GFR (MDRD) Af Amer 149 Est GFR (MDRD) Non-Af 123 BUN/Creatinine Ratio 16.5 Glucose 102 Lactic Acid Calcium 7.5 L POC Glucose 09/24/17 09/24/17 09/23/17 11:27 07:06 21:18 POC Glucose 153 H 110 139 H 09/23/17 16:53 POC Glucose 122 H Medical Necessity - Tobacco Use Smoking Status: Former smoker Assessment/Plan All Active Problems Dehydration (Acute) Cognitive deficits (Resolved) History of Hematemesis (Resolved) History of Ischemic Colitis (Resolved) History of tobacco use (Resolved) History of upper gastrointestinal bleeding (Resolved) Syncope (Resolved) 1. Acute metabolic encephalopathy secondary to dehydration-improved. 2. Lactic acidosis secondary to above-resolved. UA negative. Afebrile, no white count. No events on tele. CXR neg. Hx ischemic colitis but no abdominal complaints, benign abdomen. 3. Transient hypotension-secondary to dehydration-resolved with IV bolus administration 4. Orthostatic hypotension-suspect secondary to Parkinson's autonomic dysfunction. 5. Hyperkalemia-resolved 6. Alzheimer's disease-very confused. Continue home meds. Avoid anticholinergics 7. CKD stage II-stable 8. Hypertension-monitor closely. 9. Hyperlipidemia-on statin 10. COPD-stable no respiratory complaints 11. Seizure disorder-continue home regimen 12. BPH-on Flomax-Clark out today with voiding trial. 13. Type 2 diabetes mellitus-Metformin held at admission, Tradjenta continued, plan to resume metformin at discharge 14. Other chronic medical conditions stable DVT prophylaxis: SCDs Discharge planning: If he remained stable overnight return to Assisted living / SNF tomorrow This patient was seen by Duke Oden PA-C under the supervision of Doctor Lucio. <Bernardo Valdes - Last Filed: 09/24/17 16:23> Subjective: Patient is confused and disoriented. His advanced dementia and lives in intermediate. - Physical Exam General: Confused Lungs: No rhonchi, No wheeze, Diminished Cardiovascular: Regular rate, Normal S1, Normal S2, No murmurs Abdomen: Bowel Sounds Present, Soft, Non Tender Extremities: No edema Musculoskeletal: Arthritic Changes, Muscle Wasting Vital Signs Temp Pulse Resp BP Pulse Ox 98.5 F 62 16 122/70 H 97 09/24/17 15:10 09/24/17 15:10 09/24/17 15:10 09/24/17 15:10 09/24/17 15:10 Oxygen Delivery Method Room Air Weight: 156 lb 1.396 oz Body Mass Index (BMI) 26.8 Orthostatic Vital Signs Start: 09/24/17 07:09 Freq: q24h Status: Active Protocol: Activity Type Activity Date Activity User E-Sign Co-Sign Detail Recorded Client Recorded Date Recorded By Document 09/24/17 07:05 CAD [id number] 09/24/17 07:14 CAD 09/24/17 07:05 Orthostatic Vitals Standing -Blood Pressure (90/60-120/80) 135/60 H -Extremity Use Right Arm -Pulse Rate (60-100) 80 Sitting -Blood Pressure (90/60-120/80) 194/71 H -Extremity Use Right Arm -Pulse Rate (60-100) 64 Lying -Blood Pressure (90/60-120/80) 183/81 H -Extremity Use Right Arm -Pulse Rate (60-100) 71 Intake and Output for Last 24 Hours 09/22/17 09/23/17 09/24/17 23:59 23:59 23:59 Intake Total 353 / 353 2046 / 2047 Output Total 1075 / 1075 1475 / 1475 Balance -722 / -722 572 / 572 Laboratory Tests Past 24 Hrs 09/23/17 09/23/17 09/24/17 16:15 19:58 06:05 WBC 6.4 RBC 2.93 L Hgb 9.0 L Hct 27.7 L MCV 94.5 H MCH 30.7 MCHC 32.5 RDW 13.5 RDW Differential 44.5 H Plt Count 155 MPV 11.2 Immature Gran % (Auto) 0.200 Neut % (Auto) 66.3 Lymph % (Auto) 17.1 L [place] % (Auto) 14.0 H Eos % (Auto) 2.2 Baso % (Auto) 0.2 Absolute Neuts (auto) 4.3 Absolute Lymphs (auto) 1.10 Total Counted Not Reportable Sodium Potassium 4.9 Chloride Carbon Dioxide Anion Gap BUN Creatinine Estim Creat Clear Calc Est GFR (MDRD) Af Amer Est GFR (MDRD) Non-Af BUN/Creatinine Ratio Glucose Lactic Acid 2.4 H Calcium 09/24/17 06:05 WBC RBC Hgb Hct MCV MCH MCHC RDW RDW Differential Plt Count MPV Immature Gran % (Auto) Neut % (Auto) Lymph % (Auto) Orange % (Auto) Eos % (Auto) Baso % (Auto) Absolute Neuts (auto) Absolute Lymphs (auto) Total Counted Sodium 142 Potassium 4.3 Chloride 112 H Carbon Dioxide 24.0 Anion Gap 6 BUN 11 Creatinine 0.67 L Estim Creat Clear Calc 52.62 Est GFR (MDRD) Af Amer 149 Est GFR (MDRD) Non-Af 123 BUN/Creatinine Ratio 16.5 Glucose 102 Lactic Acid Calcium 7.5 L POC Glucose 09/24/17 09/24/17 09/23/17 11:27 07:06 21:18 POC Glucose 153 H 110 139 H 09/23/17 16:53 POC Glucose 122 H Assessment/Plan This patient was seen in conjunction with [facility]. I have independently interviewed and examined the patient and reviewed pertinent history, examination findings, laboratory and plan of management. I have reviewed the note and agree with the documented findings with the few additional points. In brief, patient is admitted for acute metabolic encephalopathy secondary to dehydration and lactic acidosis. Lactic acidosis probably from transient hypotension and hypoperfusion although sepsis unlikely. UA is negative. blood cultures and urine culture are pending. I have discussed my assessment with [facility] and orders have been reviewed. Laboratory Results 09/23/17 16:15: Lactic Acid 2.4 H 09/23/17 16:53: POC Glucose 122 H 09/23/17 19:58: Potassium 4.9 09/23/17 21:18: POC Glucose 139 H 09/24/17 06:05: WBC 6.4, RBC 2.93 L, Hgb 9.0 L, Hct 27.7 L, MCV 94.5 H, MCH 30.7 , MCHC 32.5, RDW 13.5, RDW Differential 44.5 H, Plt Count 155, MPV 11.2, Immature Gran % (Auto) 0.200, Neut % (Auto) 66.3, Lymph % (Auto) 17.1 L, [place] % (Auto) 14.0 H, Eos % (Auto) 2.2, Baso % (Auto) 0.2, Absolute Neuts (auto) 4.3, Absolute Lymphs (auto) 1.10, Total Counted Not Reportable 09/24/17 06:05: Sodium 142, Potassium 4.3, Chloride 112 H, Carbon Dioxide 24.0, Anion Gap 6, BUN 11, Creatinine 0.67 L, Estim Creat Clear Calc 52.62, Est GFR ( MDRD) Af Amer 149, Est GFR (MDRD) Non-Af 123, BUN/Creatinine Ratio 16.5, Glucose 102, Calcium 7.5 L 09/24/17 07:06: POC Glucose 110 09/24/17 11:27: POC Glucose 153 H Clinical Impression(s) from Imaging Studies Chest X-Ray 09/23/17 11:35 IMPRESSION: Degenerative changes, as described above. No demonstrated acute cardiopulmonary process. Electronically Signed: Jose Vincent MD at 12:09 EDT Tel , Service support , Code Visit Inpatient E&M: [id number] Subs Hosp L3
[2017-09-24] MEDS: Tamsulosin HCl 0.4 MG Capsule PO (16:24)
[2017-09-24 16:30] LABS: Bedside Glucose 89 mg/dL (70-110)
[2017-09-24] MEDS: Docusate Sodium 100 MG Capsule 200 MG PO (21:46)
[2017-09-24] MEDS: Donepezil HCl 10 MG Tablet PO (21:48)
[2017-09-24] MEDS: Atorvastatin Calcium 40 MG Tablet PO (21:48)
[2017-09-24 22:40] LABS: Bedside Glucose 107 mg/dL (70-110)
[2017-09-25] VITALS (9 sets, daily range): BP systolic 143–164; BP diastolic 69–85; PULSE 60–75; RESP 16–20; TEMP 36.4–36.6; O2SAT 90–95
[2017-09-25] MEDS: Carbidopa/Levodopa 25/100 Tablet PO ×2 (05:53→14:23)
[2017-09-25 07:01] LABS: Bedside Glucose 102 mg/dL (70-110)
[2017-09-25] MEDS: 0.9% Normal Saline 1,000 ML 100 ML IV (07:45)
[2017-09-25] MEDS: Ferrous Sulfate 325 MG Tablet PO (08:38)
[2017-09-25] MEDS: Escitalopram Oxalate 10 MG Tablet 5 MG PO (08:39)
[2017-09-25] MEDS: metFORMIN HCl 1,000 MG Tablet 1000 MG PO (08:39)
[2017-09-25] MEDS: levETIRAcetam 500 MG Tablet PO (08:39)
[2017-09-25] MEDS: busPIRone 15 MG TABLET PO (08:39)
[2017-09-25] MEDS: Enoxaparin 30 MG/0.3 ML Syringe SC (08:40)
[2017-09-25] MEDS: LINAGLIPTIN 5 MG TABLET PO (08:40)
[2017-09-25] MEDS: Primidone 50 MG Tablet PO (08:40)
[2017-09-25] MEDS: Pantoprazole Sodium 20 MG Tablet PO (08:40)
[2017-09-25] MEDS: Metoprolol(XL)Succ 25 MG Tablet PO (08:42)
--- NOTE | 2017-09-25 12:12 | TREXTCAR_ITS ---
- Diet 09/23/17 15:10 Diet: Cardiac: Calorie-Controlled Food consistency:: Regular Liquid Consistency:: Regular/Thin How many daily calories?: 1800 calorie - Routine Orders/Code Status Suppository Type: Dulcolax 10mg Suppository Frequency: Daily PRN Routine Lab Work: CBC - 3 days, BMP - 3 days - Therapies Physical Therapy: Eval and Treat Occupational Therapy: Eval and Treat - Problem/Diagnosis (1) Acute metabolic encephalopathy Status: Acute Current Visit: Yes (2) Dehydration Status: Acute Current Visit: No (3) Hypotension Status: Acute Current Visit: Yes (4) Chronic airway obstruction Status: Chronic Comment: mild 120 PY hx smoking Current Visit: No (5) Coronary artery disease Status: Chronic Current Visit: No (6) History of TIAs Status: Chronic Current Visit: No (7) Seizure disorder Status: Chronic Current Visit: No (8) Hyperlipidemia Status: Chronic Current Visit: No (9) Parkinson disease Status: Chronic Current Visit: No (10) Diabetic peripheral neuropathy Status: Chronic Current Visit: No (11) Gait abnormality Status: Chronic Comment: History of.. 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: Chronic Comment: R AVM repair w craniotomy 1997 Current Visit: No (15) Hypertension Status: Chronic Current Visit: No (16) Diabetes mellitus type 2 in nonobese Status: Chronic Current Visit: No - Allergies/Procedures Done in Hospital Allergies/Adverse Reactions: Allergies PPD Adverse Reaction (Uncoded 09/23/17 11:20) Other Procedures: None - Type of Care/Length of Stay Estimated LOS: Convalescent Care Less Than 30 days Type of Care Needed: Skilled Rehab Potential: Fair Prognosis: Fair - Additional Orders/Day of Discharge Day of Discharge: 09/25/17 - Dietary and Speech Recommendations Dietitian Recommendations/Changes: Rec continuing cardiac, 1800 calorie- controlled diet. May consider liberal regular diet if intake inadquate at next follow-up. - Follow Up Care Primary Care Physician: Kelvin Trammell MD [Primary Care Provider] - Please follow up with your Primary Care Physician in: 1-2 weeks
[2017-09-25 12:21] LABS: Bedside Glucose 121 mg/dL (70-110)
--- NOTE | 2017-09-25 13:32 | NURSING ---
Report given to Nurse @ [facility].
--- NOTE | 2017-09-25 13:53 | CASEMGMT ---
Patient is ready for discharge to [facility]. MODESTA faxed orders to [facility]. [facility] get [facility] at via cot due to Dementia. MODESTA called patient's daughter and left her a voice mail. MODESTA called Adilene at [facility] and let her know. RN and assistant secretary were also notified. Plan: Discharge back to [facility] under intermediate level of care. Funes Crane transported him via cot due to Dementia. 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 Kelle NGUYEN MSW
--- NOTE | 2017-09-25 15:36 | PCM.DC.SUM ---
<Duke Oden - Last Filed: 09/25/17 15:36> Discharge Date and Diagnosis Date of Admission: 09/23/17 Date of Discharge: 09/25/17 - Primary Discharge Diagnosis Active and Suspected Problems Acute metabolic encephalopathy (Acute) 2/2 dehydration Hypotension 2/2 dehydration CAD Dementia Hx TIA Seizure hx HLD Chronic anemia Parkinson with associated orthostatic hypotension DMt2 Hx Ischemic colitis CVD HTN - Secondary Discharge Diagnosis Chronic Problems Chronic airway obstruction (Chronic) mild 120 PY hx smoking Coronary artery disease (Chronic) History of TIAs (Chronic) Seizure disorder (Chronic) Hyperlipidemia (Chronic) Normochromic normocytic anemia (Chronic) Parkinson disease (Chronic) Diabetic peripheral neuropathy (Chronic) Gait abnormality (Chronic) History of.. 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 No demonstrated acute cardiopulmonary process. Operations: None Procedures: None Summary of Care Provided: Physical exam on day of discharge: General: Resting comfortably NAD Psych: A/Ox3 normal affect HEENT: PEARRLA AT NC Neck: Supple NT CV: RRR no m/t/r/g/h Resp: CTA Abd: [id number] Soft NT no guarding or rigidity Ext: DP2+= no edema Skin: W/D normal turgor Lymph/Heme: No active bleeding or adenopathy Neuro: CN2-12 intact Hospital course: The patient is a 77 year old M with extensive medical history as above who presented to the ER from residential with low blood pressure and altered mental status. His blood pressure was reportedly as low as 70 systolic and apparently he had appeared to be about to be passed out and he felt dehydrated. He was given several boluses of IV fluids. He had an elevated lactate at 4.7. This was felt to be secondary to dehydration. He did have a mildly elevated BUN. He had a negative troponin. He had a elevated potassium which improved with IV hydration. He was admitted to the PCU and maintained on telemetry. He was continued to administer IV fluids. It was felt that this was acute metabolic encephalopathy and lactic acidosis likely secondary to dehydration. Dehydration was evidenced by slightly elevated BUN and ketone level in his urine as well as hypotension responsive to IV fluids. His lactic acidosis improved with IV fluids. His BUN improved with IV fluids. The following day he had no further complaints. He was maintained on telemetry and had no acute issues. He was discharged back to snf in stable condition. He will need to follow-up with his PCP in 1-2 weeks. Please follow-up with his BMP closely. This patient was seen by Duke Oden PA-C under the supervision of Doctor Valdes. [] Discharge Diet: Low fat/ Low Cholesterol, 1800 Calorie Control Diet, 2000 mg Sodium Diet Home Medications: Medications to take at Discharge Atorvastatin Calcium [Lipitor] 40 mg PO QHS 08/31/15 Donepezil HCl 10 mg PO QHS 08/31/15 Ferrous Sulfate 325 mg PO DAILY 08/31/15 levETIRAcetam tablet [Keppra tablet] 500 mg PO BID 08/31/15 Metoprolol(XL)Succ [Toprol Xl (Beta Jeanette)] 25 mg PO DAILY 09/01/15 Multivitamins,Ther W-Minerals [Multivitamin With Minerals] 1 tablet PO DAILY 09/01/15 Sitagliptin Phosphate [Januvia] 50 mg PO DAILY 09/01/15 Buspirone HCl 15 mg PO BID 10/23/15 Metformin HCl [Glucophage] 1,000 mg PO BIDCM 10/23/15 Omeprazole [Prilosec] 20 mg PO DAILY 10/23/15 Acetaminophen [Tylenol] 650 mg PO Q4H PRN 09/23/17 Carbidopa/Levodopa [Carbidopa-Levo 25-100 mg Odt] 1 each PO TID 09/23/17 Docusate Sodium [Colace] 200 mg PO QHS 09/23/17 Escitalopram Oxalate [Lexapro] 5 mg PO DAILY 09/23/17 Guaifenesin [Robitussin] 10 ml PO Q4H PRN PRN 09/23/17 Hydrocodone/Acetaminophen [[place] 5-325 Tablet] 1 each PO Q4H PRN 09/23/17 Primidone [Mysoline] 50 mg PO BID 09/23/17 Tamsulosin HCl [Flomax] 0.4 mg PO DAILY@1730 09/23/17 Primary Care Physician: Kelvin Trammell MD [Primary Care Provider] - Please follow up with your Primary Care Physician in: 1-2 weeks Disposition: [facility] facility Minutes spent on discharge:: 35 Patient Condition:: Stable Medical Necessity - Tobacco Use Smoking Status: Former smoker Meaningful Use Info Meaningful Use Diagnoses (Choose all that apply): None applicable <Bernardo Valdes - Last Filed: 09/25/17 17:17> Discharge Date and Diagnosis - Secondary Discharge Diagnosis Chronic Problems Chronic airway obstruction (Chronic) mild 120 PY hx smoking Coronary artery disease (Chronic) History of TIAs (Chronic) Seizure disorder (Chronic) Hyperlipidemia (Chronic) Normochromic normocytic anemia (Chronic) Parkinson disease (Chronic) Diabetic peripheral neuropathy (Chronic) Gait abnormality (Chronic) History of.. 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 I have independently interviewed and examined the patient and reviewed pertinent history, examination findings, laboratory and plan of management. I have reviewed the note and agree with the documented findings with the few additional points. In brief, patient is admitted for acute metabolic encephalopathy secondary to dehydration and lactic acidosis. Lactic acidosis probably from transient hypotension and hypoperfusion, coupled with metformin 1000 mg p.o. twice daily and sitagliptin although sepsis unlikely. UA is negative. blood cultures and urine culture are are negative. I have discussed my assessment with [facility] and orders have been reviewed. Code Visit Inpatient E&M: 97630 Disch Hosp
--- NOTE | 2017-09-25 15:46 | DS.PCM_ITS ---
<Duke Oden - Last Filed: 09/25/17 15:36> Discharge Date and Diagnosis Date of Admission: 09/23/17 Date of Discharge: 09/25/17 - Primary Discharge Diagnosis Active and Suspected Problems Acute metabolic encephalopathy (Acute) 2/2 dehydration Hypotension 2/2 dehydration CAD Dementia Hx TIA Seizure hx HLD Chronic anemia Parkinson with associated orthostatic hypotension DMt2 Hx Ischemic colitis CVD HTN - Secondary Discharge Diagnosis Chronic Problems Chronic airway obstruction (Chronic) mild 120 PY hx smoking Coronary artery disease (Chronic) History of TIAs (Chronic) Seizure disorder (Chronic) Hyperlipidemia (Chronic) Normochromic normocytic anemia (Chronic) Parkinson disease (Chronic) Diabetic peripheral neuropathy (Chronic) Gait abnormality (Chronic) History of.. 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 ( Chronic) R AVM repair w craniotomy 1997 CVD (cerebrovascular disease) (Chronic) Hypertension (Chronic) Diabetes mellitus type 2 in nonobese (Chronic) Hospital Course and Treatment Imaging Results: RAD/Chest 1 View (Portable) IMPRESSION: Degenerative changes, as described above. No demonstrated acute cardiopulmonary process. Operations: None Procedures: None Summary of Care Provided: Physical exam on day of discharge: General: Resting comfortably NAD Psych: A/Ox3 normal affect HEENT: PEARRLA AT NC Neck: Supple NT CV: RRR no m/t/r/g/h Resp: CTA Abd: [id number] Soft NT no guarding or rigidity Ext: DP2+= no edema Skin: W/D normal turgor Lymph/Heme: No active bleeding or adenopathy Neuro: CN2-12 intact Hospital course: The patient is a 77 year old M with extensive medical history as above who presented to the ER from [facility] with low blood pressure and altered mental status. His blood pressure was reportedly as low as 70 systolic and apparently he had appeared to be about to be passed out and he felt dehydrated. He was given several boluses of IV fluids. He had an elevated lactate at 4.7. This was felt to be secondary to dehydration. He did have a mildly elevated BUN. He had a negative troponin. He had a elevated potassium which improved with IV hydration. He was admitted to the PCU and maintained on telemetry. He was continued to administer IV fluids. It was felt that this was acute metabolic encephalopathy and lactic acidosis likely secondary to dehydration. Dehydration was evidenced by slightly elevated BUN and ketone level in his urine as well as hypotension responsive to IV fluids. His lactic acidosis improved with IV fluids. His BUN improved with IV fluids. The following day he had no further complaints. He was maintained on telemetry and had no acute issues. [facility] He will need to follow-up with his PCP in 1-2 weeks. Please follow- up with his BMP closely. This patient was seen by Duke Oden PA-C under the supervision of Doctor Valdes. [] Discharge Diet: Low fat/ Low Cholesterol, 1800 Calorie Control Diet, 2000 mg Sodium Diet Home Medications: Medications to take at Discharge Atorvastatin Calcium [Lipitor] 40 mg PO QHS 08/31/15 Donepezil HCl 10 mg PO QHS 08/31/15 Ferrous Sulfate 325 mg PO DAILY 08/31/15 levETIRAcetam tablet [Keppra tablet] 500 mg PO BID 08/31/15 Metoprolol(XL)Succ [Toprol Xl (Beta Jeanette)] 25 mg PO DAILY 09/01/15 Multivitamins,Ther W-Minerals [Multivitamin With Minerals] 1 tablet PO DAILY Sitagliptin Phosphate [Januvia] 50 mg PO DAILY 09/01/15 Buspirone HCl 15 mg PO BID 10/23/15 Metformin HCl [Glucophage] 1,000 mg PO BIDCM 10/23/15 Omeprazole [Prilosec] 20 mg PO DAILY 10/23/15 Acetaminophen [Tylenol] 650 mg PO Q4H PRN 09/23/17 Carbidopa/Levodopa [Carbidopa-Levo 25-100 mg Odt] 1 each PO TID 09/23/17 Docusate Sodium [Colace] 200 mg PO QHS 09/23/17 Escitalopram Oxalate [Lexapro] 5 mg PO DAILY 09/23/17 Guaifenesin [Robitussin] 10 ml PO Q4H PRN PRN 09/23/17 Hydrocodone/Acetaminophen [[place] 5-325 Tablet] 1 each PO Q4H PRN 09/23/17 Primidone [Mysoline] 50 mg PO BID 09/23/17 Tamsulosin HCl [Flomax] 0.4 mg PO DAILY@1730 09/23/17 Primary Care Physician: Kelvin Trammell MD [Primary Care Provider] - Please follow up with your Primary Care Physician in: 1-2 weeks Disposition: Long-Term facility Minutes spent on discharge:: 35 Patient Condition:: Stable Medical Necessity - Tobacco Use Smoking Status: Former smoker Meaningful Use Info Meaningful Use Diagnoses (Choose all that apply): None applicable <Bernardo Valdes - Last Filed: 09/25/17 17:17> Discharge Date and Diagnosis - Secondary Discharge Diagnosis Chronic Problems Chronic airway obstruction (Chronic) mild 120 PY hx smoking Coronary artery disease (Chronic) History of TIAs (Chronic) Seizure disorder (Chronic) Hyperlipidemia (Chronic) Normochromic normocytic anemia (Chronic) Parkinson disease (Chronic) Diabetic peripheral neuropathy (Chronic) Gait abnormality (Chronic) History of.. 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 ( Chronic) R AVM repair w craniotomy 1997 CVD (cerebrovascular disease) (Chronic) Hypertension (Chronic) Diabetes mellitus type 2 in nonobese (Chronic) Hospital Course and Treatment Summary of Care Provided: This patient was seen in conjunction with [facility]. I have independently interviewed and examined the patient and reviewed pertinent history, examination findings, laboratory and plan of management. I have reviewed the note and agree with the documented findings with the few additional points. In brief, patient is admitted for acute metabolic encephalopathy secondary to dehydration and lactic acidosis. Lactic acidosis probably from transient hypotension and hypoperfusion, coupled with metformin 1000 mg p.o. twice daily and sitagliptin although sepsis unlikely. UA is negative. blood cultures and urine culture are are negative. I have discussed my assessment with [facility] and orders have been reviewed. Code Visit Inpatient E&M: 67534 Disch Hosp
== END 2017-09-25 15:59 | disposition skilled nursing facility (03) | DRG 640 ==
LOC: ED 14:51 → PCU 15:41
PROVIDERS: Admitting Provider Hospitalist; Emergency Provider Emergency Medicine; Visit Provider Internal Medicine
DX: E86.0 Dehydration (principal); G93.41 Metabolic encephalopathy; E87.5 Hyperkalemia; J44.9 Chronic obstructive pulmonary disease, unspecified; Z79.899 Other long term (current) drug therapy; E87.2 Acidosis; N18.2 Chronic kidney disease, stage 2 (mild); E11.22 Type 2 diabetes mellitus with diabetic chronic kidney disease; I12.9 Hypertensive chronic kidney disease with stage 1 through stage 4 chronic kidney disease, or unspecified chronic kidney disease; E78.5 Hyperlipidemia, unspecified; N40.0 Benign prostatic hyperplasia without lower urinary tract symptoms; G40.909 Epilepsy, unspecified, not intractable, without status epilepticus; I25.10 Atherosclerotic heart disease of native coronary artery without angina pectoris; D64.9 Anemia, unspecified; Z87.19 Personal history of other diseases of the digestive system; G20 Parkinson's disease; I95.1 Orthostatic hypotension; Z86.73 Personal history of transient ischemic attack (TIA), and cerebral infarction without residual deficits; Z87.891 Personal history of nicotine dependence; Z79.84 Long term (current) use of oral hypoglycemic drugs; E11.42 Type 2 diabetes mellitus with diabetic polyneuropathy; G30.9 Alzheimer's disease, unspecified; F02.80 Dementia in other diseases classified elsewhere, unspecified severity, without behavioral disturbance, psychotic disturbance, mood disturbance, and anxiety
CPT/HCPCS: 36415; 51702; 71045; 80048; 80053; 81001; 82962; 83605; 84132; 84484; 85025; 85610; 85730; 87040; 87086; 93005; 97116; 97163; 97166; 97530; 97535; 99285; J7030; A4216

== ENCOUNTER → 2017-10-05 05:00 | Outpatient (REF) | payer MEDICARE, SELFPAY ==
[2017-10-05 09:26] LABS: Hematocrit 32.6 % (40-54); Hemoglobin 10.6 g/dl (13.0-16.5); Mean Corp Hgb Conc 32.5 g/gl (32-36); Mean Corpuscular Hgb 30.5 pg (27.0-32.0); Mean Corpuscular Volume 93.7 fL (80-94); Mean Platelet Vol. 11.7 fl (6.2-12.0); Platelet Count 207 K/mm3 (150-450); RBC Distribution Width CV 14.6 % (11.6-14.6); RBC Distribution Width SD 49.4 fl (35.1-43.9); Red Blood Count 3.48 M/mm3 (4.6-6.2); White Blood Count 16.7 K/mm3 (4.4-11.0)
[2017-10-05 09:33] LABS: Scan Indicated on CBC? Y/N NO
[2017-10-05 09:40] LABS: Anion Gap 7 (5-15); BUN 28 mg/dL (7-18); BUN/Creat Ratio 22.8 RATIO (10-20); Calcium,Total 8.6 mg/dL (8.5-10.1); Chloride 101 mmol/L (98-107); Creatinine, Serum 1.23 mg/dL (0.70-1.30); EST Glomerular Filtration Rate 61 mL/min (>60); Est Glom Filt Rate - Afr Amer 73 mL/min (>60); Glucose 280 mg/dL (74-106); Potassium 5.1 mmol/L (3.5-5.1); Sodium Level 137 mmol/L (136-145)
== END ==
LOC: OLS.WCC 05:00
PROVIDERS: Visit Provider Family Medicine
DX: I10 Essential (primary) hypertension (principal); E86.0 Dehydration
CPT/HCPCS: 36415; 80048; 85027

== ENCOUNTER → 2017-10-08 05:00 | Outpatient (REF) | payer MEDICARE, SELFPAY ==
[2017-10-08 08:12] LABS: Absolute Lymphocyte Count 1.11 X10^3/ul (0.83-4.51); Absolute Neutrophil Count 9.1 X10^3/uL (2.0-7.7); Basophil# 0.02 X10^3/uL; Basophil% 0.2 % (0-1); Eosinophil# 0.11 X10^3/uL; Hematocrit 32.8 % (40-54); Hemoglobin 10.4 g/dl (13.0-16.5); Lymphocyte # 1.11 X10^3/ul (4.0); Lymphocyte % 9.7 % (19-41); Mean Corp Hgb Conc 31.7 g/gl (32-36); Mean Corpuscular Hgb 29.6 pg (27.0-32.0); Mean Corpuscular Volume 93.4 fL (80-94); Mean Platelet Vol. 11.4 fl (6.2-12.0); Monocyte% 8.8 % (0-10); Neutrophil # 9.12 X10^3/uL (2.7-7.7); Platelet Count 194 K/mm3 (150-450); RBC Distribution Width CV 13.9 % (11.6-14.6); RBC Distribution Width SD 47.2 fl (35.1-43.9); Red Blood Count 3.51 M/mm3 (4.6-6.2); White Blood Count 11.4 K/mm3 (4.4-11.0)
[2017-10-08 08:14] LABS: POSITIVE COUNT NO; POSITIVE DIFFERENTIAL NO; POSITIVE MORPHOLOGY NO
[2017-10-08 08:22] LABS: Anion Gap 7 (5-15); BUN 16 mg/dL (7-18); BUN/Creat Ratio 19.9 RATIO (10-20); Calcium,Total 8.3 mg/dL (8.5-10.1); Chloride 102 mmol/L (98-107); EST Glomerular Filtration Rate 99 mL/min (>60); Est Glom Filt Rate - Afr Amer 120 mL/min (>60); Glucose 181 mg/dL (74-106); Potassium 3.8 mmol/L (3.5-5.1); Sodium Level 138 mmol/L (136-145)
== END ==
LOC: OLS.WCC 05:00
PROVIDERS: Visit Provider Family Medicine
DX: I10 Essential (primary) hypertension (principal)
CPT/HCPCS: 36415; 80048; 85025

== ENCOUNTER → 2017-10-29 05:00 | Outpatient (REF) | payer MEDICARE, SELFPAY ==
[2017-10-29 07:55] LABS: Hematocrit 33.8 % (40-54); Hemoglobin 10.7 g/dl (13.0-16.5); Mean Corp Hgb Conc 31.7 g/gl (32-36); Mean Corpuscular Hgb 29.8 pg (27.0-32.0); Mean Corpuscular Volume 94.2 fL (80-94); Mean Platelet Vol. 12.2 fl (6.2-12.0); Platelet Count 208 K/mm3 (150-450); RBC Distribution Width CV 13.9 % (11.6-14.6); RBC Distribution Width SD 46.1 fl (35.1-43.9); Red Blood Count 3.59 M/mm3 (4.6-6.2); Scan Indicated on CBC? Y/N NO; White Blood Count 9.7 K/mm3 (4.4-11.0)
[2017-10-29 08:08] LABS: Anion Gap 4 (5-15); BUN 12 mg/dL (7-18); Calcium,Total 8.9 mg/dL (8.5-10.1); Chloride 103 mmol/L (98-107); EST Glomerular Filtration Rate 77 mL/min (>60); Est Glom Filt Rate - Afr Amer 93 mL/min (>60); Glucose 118 mg/dL (74-106); Potassium 5.5 mmol/L (3.5-5.1); Sodium Level 139 mmol/L (136-145)
== END ==
LOC: OLS.WCC 05:00
PROVIDERS: Visit Provider Family Medicine
DX: D64.9 Anemia, unspecified (principal); Z79.899 Other long term (current) drug therapy
CPT/HCPCS: 36415; 80048; 85027

== ENCOUNTER → 2017-11-27 05:00 | Outpatient (REF) | payer MEDICARE, SELFPAY ==
[2017-11-27 09:30] LABS: Hematocrit 36.6 % (40-54); Mean Corp Hgb Conc 32.8 g/gl (32-36); Mean Corpuscular Hgb 30.3 pg (27.0-32.0); Mean Corpuscular Volume 92.4 fL (80-94); Mean Platelet Vol. 12.2 fl (6.2-12.0); Platelet Count 204 K/mm3 (150-450); RBC Distribution Width CV 13.8 % (11.6-14.6); RBC Distribution Width SD 45.5 fl (35.1-43.9); Red Blood Count 3.96 M/mm3 (4.6-6.2); White Blood Count 8.3 K/mm3 (4.4-11.0)
[2017-11-27 09:33] LABS: Scan Indicated on CBC? Y/N NO
[2017-11-27 09:40] LABS: Anion Gap 9 (5-15); BUN 19 mg/dL (7-18); BUN/Creat Ratio 22.1 RATIO (10-20); Calcium,Total 9.2 mg/dL (8.5-10.1); Chloride 101 mmol/L (98-107); Creatinine, Serum 0.86 mg/dL (0.70-1.30); EST Glomerular Filtration Rate 92 mL/min (>60); Est Glom Filt Rate - Afr Amer 111 mL/min (>60); Glucose 133 mg/dL (74-106); Potassium 5.2 mmol/L (3.5-5.1); Sodium Level 139 mmol/L (136-145)
== END ==
LOC: OLS.WCC 05:00
PROVIDERS: Visit Provider Family Medicine
DX: D64.9 Anemia, unspecified (principal); Z79.899 Other long term (current) drug therapy
CPT/HCPCS: 36415; 80048; 85027

== ENCOUNTER → 2017-12-29 04:00 | Outpatient (REF) | payer MEDICARE, SELFPAY ==
[2017-12-29 09:41] LABS: Hematocrit 32.8 % (40-54); Hemoglobin 10.8 g/dl (13.0-16.5); Mean Corp Hgb Conc 32.9 g/gl (32-36); Mean Corpuscular Hgb 30.3 pg (27.0-32.0); Mean Corpuscular Volume 91.9 fL (80-94); Platelet Count 176 K/mm3 (150-450); RBC Distribution Width CV 13.6 % (11.6-14.6); Red Blood Count 3.57 M/mm3 (4.6-6.2); White Blood Count 6.4 K/mm3 (4.4-11.0)
[2017-12-29 09:42] LABS: Scan Indicated on CBC? Y/N NO
[2017-12-29 09:52] LABS: Anion Gap 9 (5-15); BUN 26 mg/dL (7-18); BUN/Creat Ratio 28.3 RATIO (10-20); Calcium,Total 8.9 mg/dL (8.5-10.1); Chloride 101 mmol/L (98-107); Creatinine, Serum 0.92 mg/dL (0.70-1.30); EST Glomerular Filtration Rate 85 mL/min (>60); Est Glom Filt Rate - Afr Amer 103 mL/min (>60); Glucose 108 mg/dL (74-106); Potassium 4.6 mmol/L (3.5-5.1); Sodium Level 140 mmol/L (136-145)
[2017-12-29 10:00] LABS: Hemoglobin A1c 7.1 % (4.2-6.3)
== END ==
LOC: OLS.WCC 04:00
PROVIDERS: Visit Provider Family Medicine
DX: D64.9 Anemia, unspecified (principal); E11.9 Type 2 diabetes mellitus without complications; Z79.899 Other long term (current) drug therapy
CPT/HCPCS: 36415; 80048; 83036; 85027

== ENCOUNTER → 2018-01-26 04:00 | Outpatient (REF) | payer MEDICARE, SELFPAY ==
[2018-01-26 07:28] LABS: Hematocrit 32.1 % (40-54); Hemoglobin 10.5 g/dl (13.0-16.5); Mean Corp Hgb Conc 32.7 g/gl (32-36); Mean Corpuscular Hgb 30.2 pg (27.0-32.0); Mean Corpuscular Volume 92.2 fL (80-94); Platelet Count 175 K/mm3 (150-450); RBC Distribution Width CV 13.7 % (11.6-14.6); RBC Distribution Width SD 44.8 fl (35.1-43.9); Red Blood Count 3.48 M/mm3 (4.6-6.2); White Blood Count 5.7 K/mm3 (4.4-11.0)
[2018-01-26 07:33] LABS: Anion Gap 7 (5-15); BUN 25 mg/dL (7-18); BUN/Creat Ratio 24.8 RATIO (10-20); Calcium,Total 9.1 mg/dL (8.5-10.1); Chloride 101 mmol/L (98-107); Creatinine, Serum 1.01 mg/dL (0.70-1.30); EST Glomerular Filtration Rate 76 mL/min (>60); Est Glom Filt Rate - Afr Amer 92 mL/min (>60); Glucose 178 mg/dL (74-106); Potassium 5.5 mmol/L (3.5-5.1); Sodium Level 139 mmol/L (136-145)
[2018-01-26 07:45] LABS: Scan Indicated on CBC? Y/N NO
== END ==
LOC: OLS.WCC 04:00
PROVIDERS: Visit Provider Family Medicine
DX: D64.9 Anemia, unspecified (principal); Z79.899 Other long term (current) drug therapy
CPT/HCPCS: 36415; 80048; 85027

== ENCOUNTER 2018-02-23 11:00 | Emergency (ER) | payer MEDICARE, SELFPAY ==
[2018-02-23 11:02] VITALS: BP 145/68; PULSE 66; RESP 14; TEMP 36.7; O2SAT 93; BMI 31.4
--- NOTE | 2018-02-23 11:15 | CT_ITS ---
STUDY: CT BRAIN WITHOUT CONTRAST REASON FOR EXAM: Male, 78 years old. Mental status changes. History of prior brain aneurysm repair. RADIATION DOSAGE (If Supplied By Facility): CTDIvol = ( 44.99 ) mGy, DLP = ( 745.49 ) mGycm TECHNIQUE: Transaxial CT imaging of the brain was performed without administration of intravenous contrast material. Individualized dose optimization techniques were used for this CT. COMPARISON: None. FINDINGS: Normal soft tissue structures. The patient is status post right temporoparietal craniotomy. There is moderate cerebral atrophy with widening of the extra-axial spaces and ventricular dilatation. There are areas of decreased attenuation within the white matter tracts of the supratentorial brain, consistent with microvascular disease changes. Stable focal encephalomalacia in the right temporal lobe. Aneurysmal clip is seen in the right side of the [place]. Normal basal ganglia and thalami. Normal brainstem. Normal cerebellum. There is no intracranial hemorrhage. There are no findings of an acute ischemic infarction. Atherosclerotic calcification of the vertebral arteries and cavernous portions of the internal carotid arteries bilaterally. Stable nodular mucosal thickening of the left maxillary sinus. CT/Brain/Head without Contrast IMPRESSION: Chronic involutional changes of the brain. Electronically Signed: Isaac Covarrubias MD at 12:26 EST Tel [phone], Service support ,
--- NOTE | 2018-02-23 11:15 | RAD_ITS ---
STUDY: X-RAY CHEST REASON FOR EXAM: Male, 78 years old. Confusion. TECHNIQUE: Single AP portable view of the chest. COMPARISON: Comparison is made with prior study dated September 23, 2017. FINDINGS: EKG electrodes are seen. The lungs are clear and expanded. Scattered calcified granulomas. There is no demonstrated pleural abnormality. There is borderline cardiomegaly. Normal mediastinum and caitie. Normal visualized pulmonary arteries. There is atherosclerotic tortuosity of the aortic arch and descending thoracic aorta. There are diffuse degenerative changes of the visualized thoracic spine. There is degenerative osteoarthritis of the bilateral shoulders. There is no demonstrated abnormality of the visualized soft tissue structures of the upper abdomen. RAD/Chest 1 View (Portable) IMPRESSION: No acute abnormality is seen. Electronically Signed: Isaac Covarrubias MD at 12:27 EST Tel [phone], Service support ,
--- NOTE | 2018-02-23 11:15 | EKG12_ITS ---
Test Reason : Blood Pressure : / mmHG Vent. Rate : 066 BPM Atrial Rate : 066 BPM P-R Int : 212 ms QRS Dur : 108 ms QT Int : 404 ms P-R-T Axes : 072 -06 020 degrees QTc Int : 423 ms Sinus rhythm with 1st degree A-V block Otherwise normal ECG Confirmed by NAEL COLVIN, MARILU ([id number]), acquisition editor DEEPTI ERAZO ([id number] on 02/26/2018 2:47:26 PM Referred By: RAYMOND Confirmed By:MARILU NAYAK MD
[2018-02-23 11:32] LABS: Absolute Lymphocyte Count 2.13 X10^3/ul (0.83-4.51); Absolute Neutrophil Count 5.3 X10^3/uL (2.0-7.7); Basophil# 0.01 X10^3/uL; Basophil% 0.1 % (0-1); Eosinophil# 0.15 X10^3/uL; Eosinophils% 1.8 % (0-5); Hematocrit 35.2 % (40-54); Hemoglobin 11.6 g/dl (13.0-16.5); Lymphocyte # 2.13 X10^3/ul (4.0); Mean Corpuscular Hgb 30.1 pg (27.0-32.0); Mean Corpuscular Volume 91.4 fL (80-94); Mean Platelet Vol. 11.4 fl (6.2-12.0); Monocyte# 0.62 X10^3/uL; Monocyte% 7.6 % (0-10); Neutrophil # 5.28 X10^3/uL (2.7-7.7); Neutrophil % 64.4 % (47-70); POSITIVE COUNT NO; POSITIVE DIFFERENTIAL NO; POSITIVE MORPHOLOGY NO; Platelet Count 188 K/mm3 (150-450); RBC Distribution Width CV 13.8 % (11.6-14.6); RBC Distribution Width SD 45.9 fl (35.1-43.9); Red Blood Count 3.85 M/mm3 (4.6-6.2); White Blood Count 8.2 K/mm3 (4.4-11.0)
[2018-02-23 11:44] LABS: Anion Gap 7 (5-15); BUN 27 mg/dL (7-18); Calcium,Total 8.8 mg/dL (8.5-10.1); Chloride 103 mmol/L (98-107); Creatinine, Serum 1.04 mg/dL (0.70-1.30); EST Glomerular Filtration Rate 74 mL/min (>60); Est Glom Filt Rate - Afr Amer 89 mL/min (>60); Estimated Creatinine Clearance 42.07 ml/min; Glucose 146 mg/dL (74-106); Potassium 4.6 mmol/L (3.5-5.1); Sodium Level 139 mmol/L (136-145)
[2018-02-23] MEDS: 0.9% Normal Saline 1,000 ML 150 ML IV (12:33)
[2018-02-23 12:54] LABS: Bacteria 0 SEEN /hpf (None Seen); Mucous, Urine 0 SEEN /hpf (<or=2+); Red Blood Cells-Urine 0 SEEN /hpf (0-5); Squamous Epithelial Cells - UA 0 SEEN /hpf (0-5); White Blood Cells 0 SEEN /hpf (0-5)
[2018-02-23 12:57] LABS: Color, Urine Yellow (Yellow); Glucose, Dipstick Normal (Normal); Ketone-Dipstick Negative (Negative); Leukocyte Esterase-Dipstick Negative /ul (Negative); Nitrite-Dipstick Negative (Negative); Occult Blood-Urine Negative /ul (Negative); Protein-Dipstick Negative (Negative); Urine Bilirubin Dipstick Negative (Negative); Urine Clarity Clear (Clear); Urine Urobilinogen Normal (Normal)
--- NOTE | 2018-02-23 14:10 | ED.DCSUM_ITS ---
- ER Visit Summary Date of Service: 02/23/18 Chief Complaint: [Mental status change] History of Present Illness: The patient is a 78 M [presents the emergency department complaint of a mental status change that started this morning. Initially was noted by nursing staff that symptoms may have started the night before. Apparently patient would not answer questions for them or verbalized to them. Upon EMS arrival patient was having some purposeful movements. On arrival to the emergency department he is answering questions appropriately and following commands. Patient has history of dementia as well as Parkinson's, GERD, and high cholesterol. Patient denies any complaints. He denies headache, chest pain, or shortness of breath. He denies any abdominal pain. He has not had any recent illnesses.] Physical Examination: [HEENT-PERRLA, EOMI. Cranial nerves II through XII g rossly intact. TMs clear. Mucous membranes moist. No adenopathy. Alert to person only. Cardiovascular-regular rate and rhythm without murmur or ectopy Lungs-clear to auscultation, chest wall stable without crepitus or subcu emphysema Abdomen-normoactive bowel sounds, soft, nontender, no rebound or rigidity, no peritoneal signs. Extremities-intact ?4, normal range of motion, normal pulses, atraumatic] Test Results: [CT scan of the brain showed chronic involutional changes. EKG obtained showed a sinus rhythm with a ventricular rate of 66 bpm with no acute I segment changes. CBC with differential was normal. Chemistries unremarkable. Troponin was less than 0.015. Chest x-ray showed nothing acute. Urinalysis was normal.] Emergency Department Course and Treatment: [None] Treatment Plan: [Follow-up with primary care physician as indicated] Disposition: [Discharged home in stable condition] Impression: [Mental status change-resolved] This note was generated with [employer] software. It may contain incorrect words, spelling, and punctuation that were not noted in review of the chart prior to signing ED Disposition - Plan for ED Patient: Chief Complaint: General Illness Referrals: Edis Ellis MD [Primary Care Provider] -
--- NOTE | 2018-02-23 14:11 | ED.DEP ---
ED Disposition - Plan for ED Patient: Chief Complaint: General Illness Instructions: Alzheimer's Disease, ED Altered Loc Referrals: Edis Ellis MD [Primary Care Provider] - 3-5 Days
[2018-02-23 15:01] VITALS: BP 136/71; PULSE 67; RESP 15; O2SAT 95
== END 2018-02-23 15:02 | disposition home or self-care (01) ==
PROVIDERS: Emergency Provider Emergency Medicine; Family Provider Family Medicine; PCP Family Medicine
DX: R41.82 Altered mental status, unspecified (principal); G20 Parkinson's disease; F02.80 Dementia in other diseases classified elsewhere, unspecified severity, without behavioral disturbance, psychotic disturbance, mood disturbance, and anxiety; G40.909 Epilepsy, unspecified, not intractable, without status epilepticus; E78.00 Pure hypercholesterolemia, unspecified; K21.9 Gastro-esophageal reflux disease without esophagitis; Z79.899 Other long term (current) drug therapy; Z87.891 Personal history of nicotine dependence
CPT/HCPCS: 70450; 71045; 80048; 81001; 84484; 85025; 93005; 96360; 96361; 99285; J7030; A4216

== ENCOUNTER → 2018-03-02 05:00 | Outpatient (REF) | payer MEDICARE, SELFPAY ==
[2018-03-02 08:33] LABS: Hematocrit 33.6 % (40-54); Hemoglobin 11.1 g/dl (13.0-16.5); Mean Corpuscular Hgb 30.2 pg (27.0-32.0); Mean Corpuscular Volume 91.6 fL (80-94); Mean Platelet Vol. 12.4 fl (6.2-12.0); Platelet Count 193 K/mm3 (150-450); RBC Distribution Width CV 13.4 % (11.6-14.6); RBC Distribution Width SD 43.7 fl (35.1-43.9); Red Blood Count 3.67 M/mm3 (4.6-6.2); White Blood Count 7.5 K/mm3 (4.4-11.0)
[2018-03-02 08:37] LABS: Scan Indicated on CBC? Y/N NO
[2018-03-02 08:44] LABS: AST(SGOT) 13 U/L (15-37); Alanine Aminotransfer ALT/SGPT 10 U/L (16-61); Albumin, Serum 3.1 g/dL (3.2-5.0); Alkaline Phosphatase 96 U/L (45-117); Anion Gap 10 (5-15); BUN 26 mg/dL (7-18); BUN/Creat Ratio 26.6 RATIO (10-20); Bilirubin, Direct 0.07 mg/dL (0.00-0.30); Calcium,Total 8.7 mg/dL (8.5-10.1); Chloride 105 mmol/L (98-107); Cholesterol 137 mg/dL (200); Creatinine, Serum 0.98 mg/dL (0.70-1.30); EST Glomerular Filtration Rate 79 mL/min (>60); Est Glom Filt Rate - Afr Amer 96 mL/min (>60); Globulin 3.2 g/dL (2.2-4.2); Glucose 137 mg/dL (74-106); High Density Lipoprotein 39 mg/dL; Potassium 4.3 mmol/L (3.5-5.1); Protein, Total 6.3 g/dL (6.4-8.2); Sodium Level 141 mmol/L (136-145); Triglycerides 208 mg/dL; Very Low Density Lipoprotein 42 mg/dL (5-40)
[2018-03-02 08:53] LABS: Hemoglobin A1c 7.6 % (4.2-6.3)
[2018-03-08 16:18] LABS: KEPPRA (LEVETIRACETAM) 22.5 ug/mL (10.0-40.0)
== END ==
LOC: OLS.WCC 05:00
PROVIDERS: Visit Provider Family Medicine
DX: D64.9 Anemia, unspecified (principal); E11.9 Type 2 diabetes mellitus without complications; E78.5 Hyperlipidemia, unspecified; Z79.899 Other long term (current) drug therapy
CPT/HCPCS: 36415; 80048; 80061; 80076; 80177; 80184; 80188; 83036; 85027

== ENCOUNTER → 2018-04-01 05:00 | Outpatient (REF) | payer MEDICARE, SELFPAY ==
[2018-04-01 08:13] LABS: Hematocrit 32.8 % (40-54); Hemoglobin 10.9 g/dl (13.0-16.5); Mean Corp Hgb Conc 33.2 g/gl (32-36); Mean Corpuscular Hgb 30.8 pg (27.0-32.0); Mean Corpuscular Volume 92.7 fL (80-94); Mean Platelet Vol. 11.9 fl (6.2-12.0); Platelet Count 180 K/mm3 (150-450); RBC Distribution Width CV 13.4 % (11.6-14.6); RBC Distribution Width SD 44.1 fl (35.1-43.9); Red Blood Count 3.54 M/mm3 (4.6-6.2); Scan Indicated on CBC? Y/N NO; White Blood Count 6.3 K/mm3 (4.4-11.0)
[2018-04-01 08:23] LABS: Anion Gap 9 (5-15); BUN 25 mg/dL (7-18); BUN/Creat Ratio 22.7 RATIO (10-20); Calcium,Total 8.8 mg/dL (8.5-10.1); Chloride 103 mmol/L (98-107); EST Glomerular Filtration Rate 69 mL/min (>60); Est Glom Filt Rate - Afr Amer 83 mL/min (>60); Glucose 163 mg/dL (74-106); Potassium 4.7 mmol/L (3.5-5.1); Sodium Level 138 mmol/L (136-145)
== END ==
LOC: OLS.WCC 05:00
PROVIDERS: Visit Provider Family Medicine
DX: D64.9 Anemia, unspecified (principal); G20 Parkinson's disease; Z79.899 Other long term (current) drug therapy
CPT/HCPCS: 36415; 80048; 85027

== ENCOUNTER → 2018-04-30 07:15 | Outpatient (REF) | payer MEDICARE, SELFPAY ==
[2018-04-30 08:14] LABS: Hematocrit 31.4 % (40-54); Hemoglobin 10.4 g/dl (13.0-16.5); Mean Corp Hgb Conc 33.1 g/gl (32-36); Mean Corpuscular Hgb 30.2 pg (27.0-32.0); Mean Corpuscular Volume 91.3 fL (80-94); Mean Platelet Vol. 11.6 fl (6.2-12.0); Platelet Count 179 K/mm3 (150-450); RBC Distribution Width CV 13.9 % (11.6-14.6); RBC Distribution Width SD 45.4 fl (35.1-43.9); Red Blood Count 3.44 M/mm3 (4.6-6.2); White Blood Count 6.5 K/mm3 (4.4-11.0)
[2018-04-30 08:15] LABS: Scan Indicated on CBC? Y/N NO
[2018-04-30 08:25] LABS: Anion Gap 10 (5-15); BUN 31 mg/dL (7-18); BUN/Creat Ratio 33.3 RATIO (10-20); Calcium,Total 8.7 mg/dL (8.5-10.1); Chloride 102 mmol/L (98-107); Creatinine, Serum 0.93 mg/dL (0.70-1.30); EST Glomerular Filtration Rate 84 mL/min (>60); Est Glom Filt Rate - Afr Amer 101 mL/min (>60); Glucose 179 mg/dL (74-106); Potassium 4.5 mmol/L (3.5-5.1); Sodium Level 138 mmol/L (136-145)
--- OUTSIDE RECORDS SUMMARY | 2018-07-04 14:49 | XMS RPT_ITS ---
:1940 Author Organization OHIP Support Name Relationship Address Phone Norma Renteria Unavailable [address] + [place] [address] R Unavailable Unavailable Unavailable Renteria, Norma Unavailable [address] + [place] [address] R Unavailable Unavailable Unavailable Renteria, Norma Unavailable [address] + [place] [address] R Unavailable Unavailable Unavailable RENTERIA, NORMA Unavailable [address] + [place] [address] R Unavailable Unavailable Unavailable Renteria, Norma Unavailable [address] + [place] [address] R Unavailable Unavailable Unavailable Renteria, Norma Unavailable [address] + [place] [address] R Unavailable Unavailable Unavailable Renteria, Norma Unavailable [address] + [place] [address] R Unavailable Unavailable Unavailable Renteria, Norma Unavailable [address] + [place] [address] R Unavailable Unavailable Unavailable Renteria, Norma Unavailable [address] + [place] [address] R Unavailable Unavailable Unavailable Renteria, Norma Unavailable [address] + [place] [address] R Unavailable Unavailable Unavailable RENTERIA, NORMA Unavailable [address] + [place] [address] R Unavailable Unavailable Unavailable Renteria, Norma Unavailable [address] + [place] [address] R Unavailable Unavailable Unavailable Renteria, Norma Unavailable [address] + [place] [address] R Unavailable Unavailable Unavailable Renteria Norma Unavailable [address] + [place] [address] R Unavailable Unavailable Unavailable Renteria, Norma Unavailable [address] + [place] [address] R Unavailable Unavailable Unavailable RENTERIA NORMA Unavailable [address] + [place] [address] R Unavailable Unavailable Unavailable Renteria, Norma Unavailable [address] + [place] [address] R Unavailable Unavailable Unavailable Renteria Norma Unavailable [address] + [place] [address] R Unavailable Unavailable Unavailable Renteria Norma Unavailable [address] + [place] [address] R Unavailable Unavailable Unavailable Renteria Norma Unavailable [address] + [place] [address] R Unavailable Unavailable Unavailable ASHLEE GANDARA Unavailable Unavailable + Renteria Norma Unavailable [address] + [place] [address] R Unavailable Unavailable Unavailable Care Team Providers Name Role Phone PHYSICIAN, NONE Primary Care Unavailable BRIAN PAINTING MD. GALO Ring Consulting Unavailable BRIAN PAINTING MD. GALO Ring Admitting Unavailable BRIAN PAINTING MD. GALO Ring Attending Unavailable MARIA LUISA ERAZO MD Consulting Unavailable Edis Erazo Attending Unavailable Caleb, Edis Attending Unavailable Caleb, Edis Attending Unavailable Caleb, Edis Attending Unavailable Caleb, Edis Attending Unavailable Caleb, Edis Attending Unavailable Caleb, Edis Attending Unavailable Caleb, Edis Attending Unavailable Caleb, Edis Attending Unavailable Bryant, Kelvin Primary Care Unavailable Ashelfah, Ghasem Admitting Unavailable Lucio, Bernardo Attending Unavailable Ashelfah, Ghasem Admitting Unavailable Bryant, Kelvin Primary Care Unavailable Ashelfah, Ghasem Consulting Unavailable Ashelfah, Ghasem Attending Unavailable Ashelfah, Ghasem Admitting Unavailable Bryant, Kelvin Primary Care Unavailable Bernardo Valdes Consulting Unavailable Lucio, Bernardo Attending Unavailable Ashelfah, Ghasem Admitting Unavailable Bryant, Kelvin Primary Care Unavailable Lucio Bernardo Consulting Unavailable Bernardo Valdes Attending Unavailable Erazo, Edis Attending Unavailable Erazo, Edis Attending Unavailable Erazo, Edis Attending Unavailable Erazo, Edis Attending Unavailable Erazo, Edis Attending Unavailable Erazo, Edis Attending Unavailable UngBernardo loomis Attending Unavailable Erazo, Edis Primary Care Unavailable Erazo, Edis Attending Unavailable PROBLEMS PROBLEMS DATE TYPE CONDITION / CODE ATTENDING STATUS SOURCE 04/23/2018 Unknown Z79.899 - Other long Edis Erazo Active [place] term (current) drug [facility] therapy / Hospital Z79.899(ICD-10) Repository 04/23/2018 Unknown I48.91 - Unspecified Edis Erazo Active [place] atrial fibrillation [facility] / I48.91(ICD-10) Hospital Repository 03/18/2018 Unknown E11.9 - Type 2 Edis Erazo Active [place] diabetes mellitus [facility] without Hospital complications / Repository E11.9(ICD-10) 03/18/2018 Unknown E78.5 - Edis Erazo Active [place] Hyperlipidemia, [facility] unspecified / Hospital E78.5(ICD-10) Repository 03/18/2018 Unknown D64.9 - Anemia, Edis Erazo Active [place] unspecified / Community D64.9(ICD-10) Hospital Repository 02/08/2018 Unknown 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) use of [facility] anticoagulants / Hospital Z79.01(ICD-10) Repository 12/10/2017 Unknown I10 - Essential Edis Erazo Active [place] (primary) [facility] hypertension / Hospital I10(ICD-10) Repository 10/29/2017 Unknown E86.0 - Dehydration Bernardo Valdes Active [place] / E86.0(ICD-10) [facility] Hospital Repository 11/18/2017 Unknown R56.9 - Unspecified Edis Erazo Active [place] convulsions / Community R56.9(ICD-10) Hospital Repository PROCEDURES PROCEDURES No Procedure Records FoundRESULTS RESULTS CBC-COMPLETE BLOOD CNT Collected: 04/30/2018 Status: F Source: [place] NO DIFF 7:15 AM [facility] REPOSITORY TYPE CODE TESTS RESULT OUT OF RANGE REFERENCE UNITS LAB L100.1000 4.4-11.0 K/mm3 Normal WBC 6.5 LAB L100.1200 4.6-6.2 M/mm3 Low RBC 3.44 LAB L100.1300 13.0-16.5 g/dl Low HGB 10.4 LAB L100.1400 40-54 % Low HCT 31.4 LAB L100.1500 80-94 fL Normal MCV 91.3 LAB L100.1600 27.0-32.0 pg Normal MCH 30.2 LAB L100.1700 32-36 g/gl Normal MCHC 33.1 LAB L100.1810 11.6-14.6 % Normal RDW CV 13.9 LAB L100.1820 35.1-43.9 fl High RDW SD 45.4 LAB L100.1900 150-450 K/mm3 Normal PLT 179 LAB L100.2000 6.2-12.0 fl Normal MPV 11.6 Performed By: #### L100.0500 #### [facility] [address] [place], [address] BASIC METABOLIC Collected: 04/30/2018 Status: F Source: [place] PROFILE (BMP) 7:15 AM [facility] REPOSITORY TYPE CODE TESTS RESULT OUT OF RANGE REFERENCE UNITS LAB L501.0100 74-106 mg/dL High GLU 179 Result Comment: Fasting Glucose result greater than or equal to 126 mg/dL suggests DIABETES MELLITUS per A.D.A. criteria. Please note revised GLUCOSE reference range effective 2017. LAB L501.1000 7-18 mg/dL High BUN 31 LAB L501.1100 0.70-1.30 mg/dL Normal CREAT,SERUM 0.93 Result Comment: The validity of the calculated GFR AND GFRAA in patients over 70 years has not been determined. Clinical correlation is essential. LAB L501.1110 >60 mL/min Normal EST GFR 84 Result Comment: Non- GFR Calc LAB L501.1115 >60 mL/min Normal EST GFR - AA 101 Result Comment: GFR Calc LAB L501.1300 10-20 RATIO High BUN/CRE 33.3 LAB L501.2200 8.5-10.1 mg/dL CA Normal 8.7 LAB L501.5300 136-145 mmol/L NA Normal 138 LAB L501.5600 3.5-5.1 mmol/L K Normal 4.5 LAB L501.5900 98-107 mmol/L CL Normal 102 LAB L501.6100 21.0-32.0 mmol/L Normal CO2 26.0 LAB L501.6200 5-15 Normal GAP 10 Performed By: #### L500.2500 #### [facility] [address] [place], [place], [address] CBC-COMPLETE BLOOD CNT Collected: 04/01/2018 Status: F Source: [place] NO DIFF 6:45 AM [facility] REPOSITORY TYPE CODE TESTS RESULT OUT OF RANGE REFERENCE UNITS LAB L100.1000 4.4-11.0 K/mm3 Normal WBC 6.3 LAB L100.1200 4.6-6.2 M/mm3 Low RBC 3.54 LAB L100.1300 13.0-16.5 g/dl Low HGB 10.9 LAB L100.1400 40-54 % Low HCT 32.8 LAB L100.1500 80-94 fL Normal MCV 92.7 LAB L100.1600 27.0-32.0 pg Normal MCH 30.8 LAB L100.1700 32-36 g/gl Normal MCHC 33.2 LAB L100.1810 11.6-14.6 % Normal RDW CV 13.4 LAB L100.1820 35.1-43.9 fl High RDW SD 44.1 LAB L100.1900 150-450 K/mm3 Normal PLT 180 LAB L100.2000 6.2-12.0 fl Normal MPV 11.9 Performed By: #### L100.0500 #### [facility] [address] [place], [place], [address] BASIC METABOLIC Collected: 04/01/2018 Status: F Source: [place] PROFILE (BMP) 6:45 AM [facility] REPOSITORY TYPE CODE TESTS RESULT OUT OF RANGE REFERENCE UNITS LAB L501.0100 74-106 mg/dL High GLU 163 Result Comment: Fasting Glucose result greater than or equal to 126 mg/dL suggests DIABETES MELLITUS per A.D.A. criteria. Please note revised GLUCOSE reference range effective 2017. LAB L501.1000 7-18 mg/dL High BUN 25 LAB L501.1100 0.70-1.30 mg/dL Normal CREAT,SERUM 1.10 Result Comment: The validity of the calculated GFR AND GFRAA in patients over 70 years has not been determined. Clinical correlation is essential. LAB L501.1110 >60 mL/min Normal EST GFR 69 Result Comment: Non- GFR Calc LAB L501.1115 >60 mL/min Normal EST GFR - AA 83 Result Comment: GFR Calc LAB L501.1300 10-20 RATIO High BUN/CRE 22.7 LAB L501.2200 8.5-10.1 mg/dL CA Normal 8.8 LAB L501.5300 136-145 mmol/L NA Normal 138 LAB L501.5600 3.5-5.1 mmol/L K Normal 4.7 LAB L501.5900 98-107 mmol/L CL Normal 103 LAB L501.6100 21.0-32.0 mmol/L Normal CO2 26.0 LAB L501.6200 5-15 Normal GAP 9 Performed By: #### L500.2500 #### [facility] [address] [place], [address] CBC-COMPLETE BLOOD CNT Collected: 03/02/2018 Status: F Source: [place] NO DIFF 6:40 AM [facility] REPOSITORY Order Comment: ROOM 121 TYPE CODE TESTS RESULT OUT OF RANGE REFERENCE UNITS LAB L100.1000 4.4-11.0 K/mm3 Normal WBC 7.5 LAB L100.1200 4.6-6.2 M/mm3 Low RBC 3.67 LAB L100.1300 13.0-16.5 g/dl Low HGB 11.1 LAB L100.1400 40-54 % Low HCT 33.6 LAB L100.1500 80-94 fL Normal MCV 91.6 LAB L100.1600 27.0-32.0 pg Normal MCH 30.2 LAB L100.1700 32-36 g/gl Normal MCHC 33.0 LAB L100.1810 11.6-14.6 % Normal RDW CV 13.4 LAB L100.1820 35.1-43.9 fl Normal RDW SD 43.7 LAB L100.1900 150-450 K/mm3 Normal PLT 193 LAB L100.2000 6.2-12.0 fl High MPV 12.4 Performed By: #### L100.0500 #### [facility] [address] [facility] [place], [address] PHENOBARBITAL Collected: 03/02/2018 Status: F Source: [place] 6:40 AM [facility] REPOSITORY Order Comment: ROOM 121 TYPE CODE TESTS RESULT OUT OF REFERENCE UNITS RANGE LAB L501.8500 10.0-40.0 ug/mL Low PHENOBARB 3.8 Performed By: #### L501.8500 #### [facility] [address] [place], [place], [address] BASIC METABOLIC Collected: 03/02/2018 Status: F Source: [place] PROFILE (BMP) 6:40 AM [facility] REPOSITORY Order Comment: ROOM 121 TYPE CODE TESTS RESULT OUT OF RANGE REFERENCE UNITS LAB L501.0100 74-106 mg/dL High GLU 137 Result Comment: Fasting Glucose result greater than or equal to 126 mg/dL suggests DIABETES MELLITUS per A.D.A. criteria. Please note revised GLUCOSE reference range effective 2017. LAB L501.1000 7-18 mg/dL High BUN 26 LAB L501.1100 0.70-1.30 mg/dL Normal CREAT,SERUM 0.98 Result Comment: The validity of the calculated GFR AND GFRAA in patients over 70 years has not been determined. Clinical correlation is essential. LAB L501.1110 >60 mL/min Normal EST GFR 79 Result Comment: Non- GFR Calc LAB L501.1115 >60 mL/min Normal EST GFR - AA 96 Result Comment: GFR Calc LAB L501.1300 10-20 RATIO High BUN/CRE 26.6 LAB L501.2200 8.5-10.1 mg/dL CA Normal 8.7 LAB L501.5300 136-145 mmol/L NA Normal 141 LAB L501.5600 3.5-5.1 mmol/L K Normal 4.3 LAB L501.5900 98-107 mmol/L CL Normal 105 LAB L501.6100 21.0-32.0 mmol/L Normal CO2 26.0 LAB L501.6200 5-15 Normal GAP 10 Performed By: #### L500.2500, L500.3400, L500.4100 #### [facility] [address] [place], [place], [address] LIVER PROFILE Collected: 03/02/2018 Status: F Source: [place] 6:40 AM [facility] REPOSITORY Order Comment: ROOM 121 TYPE CODE TESTS RESULT OUT OF RANGE REFERENCE UNITS LAB L501.1500 6.4-8.2 g/dL Low T PROT 6.3 LAB L501.1800 3.2-5.0 g/dL Low ALB 3.1 LAB L501.1950 2.2-4.2 g/dL Normal GLOB 3.2 LAB L501.4100 15-37 U/L Low AST 13 LAB L501.4305 45-117 U/L Normal ALK P 96 LAB L501.4405 16-61 U/L Low ALT 10 LAB L501.4600 0.20-1.00 mg/dL Normal T BILI 0.20 LAB L501.4700 0.00-0.30 mg/dL Normal D BILI 0.07 Performed By: #### L500.2500, L500.3400, L500.4100 #### [facility] [address] [facility] [place], [place], [address] LIPID PROFILE Collected: 03/02/2018 Status: F Source: [place] 6:40 [facility] REPOSITORY Order Comment: ROOM 121 TYPE CODE TESTS RESULT OUT OF RANGE REFERENCE UNITS LAB L501.4900 200 mg/dL Normal CHOL 137 Result Comment: <200 mg/dL Desirable 200-240 mg/dL Borderline >240 mg/dL High Risk LAB L501.5000 mg/dL High TRIG 208 Result Comment: The drugs N-Acetylcysteine and Metamizole may falsely depress this assay. Serum Triglycerides Reference Interval Normal <150 mg/dL Borderline high 150 - 199 mg/dL High 200 - 499 mg/dL Very High > or = 500 mg/dL LAB L501.6400 mg/dL Low HDL 39 Result Comment: The drugs N-Acetylcysteine and Metamizole may falsely depress this assay. Reference Range HDL <40 mg/dL Low HDL Cholesterol HDL >or= 60 mg/dL High HDL Cholesterol LAB L501.6500 0-130 mg/dL Normal LDL 56 LAB L501.6600 5-40 mg/dL High VLDL 42 Performed By: #### L500.2500, L500.3400, L500.4100 #### [facility] [address] [place], [place], [id number] HEMOGLOBIN A1C Collected: 03/02/2018 Status: F Source: [place] 6:40 AM [facility] REPOSITORY Order Comment: ROOM 121 TYPE CODE TESTS RESULT OUT OF RANGE REFERENCE UNITS LAB L501.9985 4.2-6.3 % High HGB A1C 7.6 Performed By: #### L501.9985 #### [facility] [address] [place], [address] KEPPRA (LEVETIRACETAM) Collected: 03/02/2018 Status: F Source: [place] 6:40 AM [facility] REPOSITORY Order Comment: ROOM 121 TYPE CODE TESTS RESULT OUT OF RANGE REFERENCE UNITS LAB L3310.0000 10.0-40.0 ug/mL Normal KEPPRA 22.5 Result Comment: Performed at: [facility] [id number] Barrel Roller: Katelynn Baird MD, Phone: [phone] Performed By: #### L3310.0000, L3400.2205 #### [facility] (refer to report for specific site) refer to report for address and phone number MYSOLINE (PRIMIDONE) Collected: 03/02/2018 Status: F Source: [place] 6:40 AM [facility] REPOSITORY Order Comment: ROOM 121 TYPE CODE TESTS RESULT OUT OF RANGE REFERENCE UNITS LAB L3400.2220 Normal PRIMIDONE,SE RUM Result Comment: NONE DETECTED Detection Limit = 0.3 <0.3 indicates None Detected LAB L3400.2240 Normal PHENOBARB,SERUM Result Comment: NONE DETECTED Detection Limit = 3 Performed By: #### L3310.0000, L3400.2205 #### [facility] (refer to report for specific site) refer to report for address and phone number 12 LEAD ELECTROCARDIOGRAM Observed: 02/26/2018 Status: F Source: [place] 2:47 PM [facility] REPOSITORY [facility] [address] [place] [address] 12 Lead EKG 02/23/18 1127 MR#: [id number] Acct: [id number] Name: GALO RENTERIA Rep #: [id number] : 1940 78 From: Arpit Carolina MD Attending Dr: Status: DEP ER Ordering Dr: Bernardo Trevizo DO Date: 02/23/18 Location: ED Sex: M C Admitted: Test Reason : Blood Pressure : / mmHG Vent. Rate : 066 BPM Atrial Rate : 066 BPM P-R Int : 212 ms QRS Dur : 108 ms QT Int : 404 ms P-R-T Axes : 072 -06 020 degrees QTc Int : 423 ms Sinus rhythm with 1st degree A-V block Otherwise normal ECG Confirmed by [place]EL COLVIN, ARPIT ([id number]), subeditor DEEPTI ERAZO ([id number]) on 02/26/2018 2:47:26 PM Referred By: RAYMOND Confirmed By:ARPIT CAROLINA MD 02/26/18 1447 Date Arpit Carolina MD CC: Edis Erazo MD; Bernardo Trevizo DO Signed DISCHARGE INSTRUCTION Observed: 02/23/2018 Status: F Source: [place] 2:11 PM [facility] REPOSITORY [facility] Medical Records Department [address] [place] [address] Discharge Instruction 02/23/18 141 MR#: [id number] Acct: [id number] Name: GALO RENTERIA Rep #: [id number] : 1940 78 From: Bernardo Trevizo DO PCP: Edis Erazo MD Status: REG ER ED Disposition - Plan for ED Patient: Chief Complaint: General Illness Instructions: Alzheimer's Disease, ED Altered Loc Referrals: Edis Erazo MD [Primary Care Provider] - 3-5 Days What to do if you have Problems For any increased pain, shortness of breath, bleeding, nausea or vomiting, chest pain, or any unexpected problems, contact your Primary Care Provider. Call [facility] ([phone]) or report to the closest Emergency Room. Call 911 if necessary. 02/23/18 1411 <Electronically signed by Bernardo Trevizo DO> Date Bernardo Trevizo DO Cosigner Signature (If Indicated): Date CC: Edis Erazo MD EMERGENCY DEPARTMENT Observed: 02/23/2018 Status: F Source: [place] SUMMARY 2:10 PM [facility] REPOSITORY [facility] Medical Records Department [address] [place] [address] Emergency Department Summary 02/23/18 1408 MR#: [id number] Acct: [id number] Name: GALO RENTERIA Rep #: [id number] : 1940 78 From: Bernardo Trevizo DO PCP: Edis Erazo MD Status: REG ER - ER Visit Summary Date of Service: 02/23/18 Chief Complaint: [Mental status change] History of Present Illness: The patient is a 78 M [presents the emergency department complaint of a mental status change that started this morning. Initially was noted by nursing staff that symptoms may have started the night before. Apparently patient would not answer questions for them or verbalized to them. Upon EMS arrival patient was having some purposeful movements. On arrival to the emergency department he is answering questions appropriately and following commands. Patient has history of dementia as well as Parkinson's, GERD, and high cholesterol. Patient denies any complaints. He denies headache, chest pain, or shortness of breath. He denies any abdominal pain. He has not had any recent illnesses.] Physical Examination: [HEENT-PERRLA, EOMI. Cranial nerves II through XII grossly intact. TMs clear. Mucous membranes moist. No adenopathy. Alert to person only. Cardiovascular-regular rate and rhythm without murmur or ectopy Lungs-clear to auscultation, chest wall stable without crepitus or subcu emphysema Abdomen-normoactive bowel sounds, soft, nontender, no rebound or rigidity, no peritoneal signs. Extremities-intact 4, normal range of motion, normal pulses, atraumatic] Test Results: [CT scan of the brain showed chronic involutional changes. EKG obtained showed a sinus rhythm with a ventricular rate of 66 bpm with no acute I segment changes. CBC with differential was normal. Chemistries unremarkable. Troponin was less than 0.015. Chest x-ray showed nothing acute. Urinalysis was normal.] Emergency Department Course and Treatment: [None] Treatment Plan: [Follow-up with primary care physician as indicated] Disposition: [Discharged home in stable condition] Impression: [Mental status change-resolved] This note was generated with [employer] dictation software. It may contain incorrect words, spelling, and punctuation that were not noted in review of the chart prior to signing ED Disposition - Plan for ED Patient: Chief Complaint: General Illness Referrals: Edis Erazo MD [Primary Care Provider] - What to do if you have Problems For any increased pain, shortness of breath, bleeding, nausea or vomiting, chest pain, or any unexpected problems, contact your Primary Care Provider. Call [facility] ([phone]) or report to the closest Emergency Room. Call 911 if necessary. 02/23/18 1410 <Electronically signed by Bernardo Trevizo DO> Date Bernardo Trevizo DO Cosigner Signature (If Indicated): Date CC: Edis Erazo MD URINALYSIS, COMPLETE Collected: 02/23/2018 Status: F Source: [place] 12:46 PM [facility] REPOSITORY Order Comment: Order Date: 02/23/18 Has pt arrived? Y How was Urine Obtained? CLEAN CATCH TYPE CODE TESTS RESULT OUT OF RANGE REFERENCE UNITS LAB L400.3000 Yellow COLOR Normal Yellow LAB L400.3050 Clear Normal CLARITY Clear LAB L400.3200 Normal mg/dl Normal GLUCOSE, UR Normal LAB L400.3300 Negative mg/dL Normal BILIRUBIN URINE Negative LAB L400.3400 Negative mg/dl Normal KETONE UR Negative LAB L400.3465 1.002-1.030 Normal SP.GR. DIPSTX 1.010 LAB L400.3550 5.0 - 8.0 pH UR Normal 6.0 LAB L400.3600 Negative mg/dl PROT Normal DIPSTX Negative LAB L400.3700 Normal mg/dl Normal UROBILI Normal LAB L400.3750 Negative Normal NITRITE UR Negative LAB L400.3780 Negative /ul Normal OCCULT BLOOD-UR Negative LAB L400.3800 Negative /ul LEUK Normal ESTERASE Negative LAB L400.4050 0-5 /hpf WBC 0 Normal SEEN LAB L400.4100 0-5 /hpf 0 Normal RBC-UA SEEN LAB L400.4150 0-5 /hpf SQUAM 0 Normal EPI SEEN LAB L400.4300 None Seen /hpf 0 Normal BACTERIA SEEN LAB L400.4350 <or=2+ /hpf 0 Normal MUCUS, URINE SEEN Performed By: #### L400.0001 #### [facility] [address] [facility] [place], [address] BRAIN/HEAD WITHOUT Observed: 02/23/2018 Status: F Source: [place] CONTRAST 11:17 AM [facility] REPOSITORY [facility] [address] [place] [address] Brain/Head without Contrast MR#: [id number] Acct: [id number] Name: GALO RENTERIA Rep #: [id number] : 1940 [facility] From: Isaac Covarrubias MD PCP: Edis Erazo MD Status: REG ER Study: Brain/Head without Contrast Date of Exam: 02/23/18 Exam# [id number] Ordering Dr: Bernardo Trevizo DO STUDY: CT BRAIN WITHOUT CONTRAST REASON FOR EXAM: Male, 78 years old. Mental status changes. History of prior brain aneurysm repair. RADIATION DOSAGE (If Supplied By Facility): CTDIvol = ( 44.99 ) mGy, DLP = ( 745.49 ) mGycm TECHNIQUE: Transaxial CT imaging of the brain was performed without administration of intravenous contrast material. Individualized dose optimization techniques were used for this CT. COMPARISON: None. FINDINGS: Normal soft tissue structures. The patient is status post right temporoparietal craniotomy. There is moderate cerebral atrophy with widening of the extra- axial spaces and ventricular dilatation. There are areas of decreased attenuation within the white matter tracts of the supratentorial brain, consistent with microvascular disease changes. Stable focal encephalomalacia in the right temporal lobe. 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 Normal basal ganglia and thalami. Normal brainstem. Normal cerebellum. There is no intracranial hemorrhage. There are no findings of an acute ischemic infarction. Atherosclerotic calcification of the vertebral arteries and cavernous portions of the internal carotid arteries bilaterally. Stable nodular mucosal thickening of the left maxillary sinus. CT/Brain/Head without Contrast IMPRESSION: Chronic involutional changes of the brain. Electronically Signed: Isaac Covarrubias MD at 12:26 EST Tel [phone], Service support , CC: Edis Erazo MD; Bernardo Trevizo DO Escort Vehicle Driver: Signed CHEST 1 VIEW Observed: 02/23/2018 Status: F Source: [place] (PORTABLE) 11:17 AM [facility] REPOSITORY [facility] Imaging Services [address] [place] [address] Chest 1 View (Portable) MR#: [id number] Acct: [id number] Name: GALO RENTERIA Rep #: [id number] : 1940 78 From: Isaac Covarrubias MD PCP: Edis Erazo MD Status: REG ER Study: Chest 1 View (Portable) Date of Exam: 02/23/18 Exam# [id number] Ordering Dr: Bernardo Trevizo DO STUDY: X-RAY CHEST REASON FOR EXAM: Male, 78 years old. Confusion. TECHNIQUE: Single AP portable view of the chest. COMPARISON: Comparison is made with prior study dated September 23, 2017. FINDINGS: EKG electrodes are seen. The lungs are clear and expanded. Scattered calcified granulomas. There is no demonstrated pleural abnormality. There is borderline cardiomegaly. Normal mediastinum and caitie. Normal visualized pulmonary arteries. There is atherosclerotic tortuosity of the aortic arch and descending thoracic aorta. There are diffuse degenerative changes of the visualized thoracic spine. There is degenerative osteoarthritis of the bilateral shoulders. There is no demonstrated abnormality of the visualized soft tissue structures of the upper abdomen. RAD/Chest 1 View (Portable) IMPRESSION: No acute abnormality is seen. Electronically Signed: Isaac Covarrubias MD at 12:27 EST Tel [phone], Service support , CC: Edis Erazo MD; Bernardo Trevzio DO Escort Vehicle Driver: Signed CBC W/DIFF, AUTOMATED Collected: 02/23/2018 Status: F Source: [place] 11:03 AM [facility] [facility] REPOSITORY TYPE CODE TESTS RESULT OUT OF RANGE REFERENCE UNITS LAB L100.1000 4.4-11.0 K/mm3 Normal WBC 8.2 LAB L100.1200 4.6-6.2 M/mm3 Low RBC 3.85 LAB L100.1300 13.0-16.5 g/dl Low HGB 11.6 LAB L100.1400 40-54 % Low HCT 35.2 LAB L100.1500 80-94 fL Normal MCV 91.4 LAB L100.1600 27.0-32.0 pg Normal MCH 30.1 LAB L100.1700 32-36 g/gl Normal MCHC 33.0 LAB L100.1810 11.6-14.6 % Normal RDW CV 13.8 LAB L100.1820 35.1-43.9 fl High RDW SD 45.9 LAB L100.1900 150-450 K/mm3 Normal PLT 188 LAB L100.2000 6.2-12.0 fl Normal MPV 11.4 LAB L100.2100 47-70 % Normal NEUT% 64.4 LAB L100.2200 19-41 % Normal LY% 26.0 LAB L100.2300 0-10 % Normal MONO% 7.6 LAB L100.2400 0-5 % Normal EO% 1.8 LAB L100.2500 0-1 % Normal BASO% 0.1 LAB L100.2550 0.0-0.9 % Normal IM GRAN % 0.100 Result Comment: IG% - Immature Granulocytes (promyelocytes, myelocytes and metamyelocytes) > 1% indicates that a LEFT SHIFT is Present. LAB L100.2620 2.0-7.7 X10 3/uL Normal Absolute Neut 5.3 LAB L100.2720 0.83-4.51 X10 3/ul Normal Absolute Lymph 2.13 Performed By: #### L100.0100 #### [facility] [address] [place], [address] BASIC METABOLIC Collected: 02/23/2018 Status: F Source: [facility] PROFILE (BMP) 11:03 AM [facility] REPOSITORY TYPE CODE TESTS RESULT OUT OF RANGE REFERENCE UNITS LAB L501.0100 74-106 mg/dL High GLU 146 Result Comment: Fasting Glucose result greater than or equal to 126 mg/dL suggests DIABETES MELLITUS per A.D.A. criteria. Please note revised GLUCOSE reference range effective 2017. LAB L501.1000 7-18 mg/dL High BUN 27 LAB L501.1100 0.70-1.30 mg/dL Normal CREAT,SERUM 1.04 Result Comment: The validity of the calculated GFR AND GFRAA in patients over 70 years has not been determined. Clinical correlation is essential. LAB L501.1110 >60 mL/min Normal EST GFR 74 Result Comment: Non- GFR Calc LAB L501.1115 >60 mL/min Normal EST GFR - AA 89 Result Comment: GFR Calc LAB L501.1255 ml/min Normal Estimated CRCL 42.07 LAB L501.1300 10-20 RATIO High BUN/CRE 26.0 LAB L501.2200 8.5-10 mg/dL Normal .1 CA 8.8 LAB L501.5300 136-14 mmol/L Normal 5 NA 139 LAB L501.5600 3.5-5. mmol/L Normal 1 K 4.6 LAB L501.5900 98-107 mmol/L Normal CL 103 LAB L501.6100 21.0-3 mmol/L Normal 2.0 CO2 29.0 LAB L501.6200 5-15 Normal GAP 7 Performed By: #### L500.2500, L501.4010 #### [facility] [address] [place], [place], [address] TROPONIN-I Collected: 02/23/2018 Status: F Source: [facility] 11:03 AM [facility] REPOSITORY TYPE CODE TESTS RESULT OUT OF RANGE REFERENCE UNITS LAB L501.4010 <0.045 ng/mL Normal < 0.015 TROPONIN-I Result Comment: TROPONIN-I EXPECTED VALUES <0.045 Negative 0.045 - 0.590 Consistent with Cardiac Damage > OR = 0.600 Critical Value Not every elevated troponin is indicative of AZ. These values should be used with clinical judgement in examining the patient's clinical picture for diagnosis. To establish a diagnosis of AZ versus myocardial injury, there must be a demonstrated rise and/or fall in the troponin values, in addition to ischemic symptoms, EKG changes, new regional wall motion abnormality, and/or angiographical evidence. PLEASE NOTE: REFERENCE RANGES EDITED 17 Performed By: #### L500.2500, L501.4010 #### [facility] [address] [place], [address] BASIC METABOLIC Collected: 01/26/2018 Status: F Source: ABIEL PROFILE ([facility]) 5:20 AM [facility] REPOSIT[facility] Order Comment: ROOM 121 TYPE CODE TESTS RESULT OUT OF RANGE REFERENCE UNITS LAB L501.0100 74-106 mg/dL High GLU 178 Result Comment: Fasting Glucose result greater than or equal to 126 mg/dL suggests DIABETES MELLITUS per A.D.A. criteria. Please note revised GLUCOSE reference range effective 2017. LAB L501.1000 7-18 mg/dL High BUN 25 LAB L501.1100 0.70-1.30 mg/dL Normal CREAT,SERUM 1.01 Result Comment: The validity of the calculated GFR AND GFRAA in patients over 70 years has not been determined. Clinical correlation is essential. LAB L501.1110 >60 mL/min Normal EST GFR 76 Result Comment: Non- GFR Calc LAB L501.1115 >60 mL/min Normal EST GFR - AA 92 Result Comment: GFR Calc LAB L501.1300 10-20 RATIO High BUN/CRE 24.8 LAB L501.2200 8.5-10.1 mg/dL CA Normal 9.1 LAB L501.5300 136-145 mmol/L NA Normal 139 LAB L501.5600 3.5-5.1 mmol/L High K 5.5 LAB L501.5900 98-107 mmol/L CL Normal 101 LAB L501.6100 21.0-32.0 mmol/L Normal CO2 31.0 LAB L501.6200 5-15 Normal GAP 7 Performed By: #### L500.2500 #### [facility] [address] [place], [place], [address] CBC-COMPLETE BLOOD CNT Collected: 01/26/2018 Status: F Source: [facility] NO DIFF 5:20 AM [facility] REPOSITORY Order Comment: ROOM 121 TYPE CODE TESTS RESULT OUT OF RANGE REFERENCE UNITS LAB L100.1000 4.4-11.0 K/mm3 Normal WBC 5.7 LAB L100.1200 4.6-6.2 M/mm3 Low RBC 3.48 LAB L100.1300 13.0-16.5 g/dl Low HGB 10.5 LAB L100.1400 40-54 % Low HCT 32.1 LAB L100.1500 80-94 fL Normal MCV 92.2 LAB L100.1600 27.0-32.0 pg Normal MCH 30.2 LAB L100.1700 32-36 g/gl Normal MCHC 32.7 LAB L100.1810 11.6-14.6 % Normal RDW CV 13.7 LAB L100.1820 35.1-43.9 fl High RDW SD 44.8 LAB L100.1900 150-450 K/mm3 Normal PLT 175 LAB L100.2000 6.2-12.0 fl Normal MPV 12.0 Performed By: #### L100.0500 #### [facility] [address] [place], [place], [id number] CBC-COMPLETE BLOOD CNT Collected: 12/29/2017 Status: F Source: ABIEL NO DIFF 5:10 AM [facility] REPOSITORY Order Comment: ROOM 121 TYPE CODE TESTS RESULT OUT OF RANGE REFERENCE UNITS LAB L100.1000 4.4-11.0 K/mm3 Normal WBC 6.4 LAB L100.1200 4.6-6.2 M/mm3 Low RBC 3.57 LAB L100.1300 13.0-16.5 g/dl Low HGB 10.8 LAB L100.1400 40-54 % Low HCT 32.8 LAB L100.1500 80-94 fL Normal MCV 91.9 LAB L100.1600 27.0-32.0 pg Normal MCH 30.3 LAB L100.1700 32-36 g/gl Normal MCHC 32.9 LAB L100.1810 11.6-14.6 % Normal RDW CV 13.6 LAB L100.1820 35.1-43.9 fl High RDW SD 44.0 LAB L100.1900 150-450 K/mm3 Normal PLT 176 LAB L100.2000 6.2-12.0 fl Normal MPV 12.0 Performed By: #### L100.0500 #### [facility] [address] [place], [address] BASIC METABOLIC Collected: 12/29/2017 Status: F Source: [place] PROFILE ([facility]) 5:10 AM [facility] REPOSITORY Order Comment: ROOM 121 TYPE CODE TESTS RESULT OUT OF RANGE REFERENCE UNITS LAB L501.0100 74-106 mg/dL High GLU 108 Result Comment: Fasting Glucose result from 100 to 125 mg/dL suggests IMPAIRED HOMEOSTASIS per A.D.A. criteria. Please note revised GLUCOSE reference range effective 2017. LAB L501.1000 7-18 mg/dL High BUN 26 LAB L501.1100 0.70-1.30 mg/dL Normal CREAT,SERUM 0.92 Result Comment: The validity of the calculated GFR AND GFRAA in patients over 70 years has not been determined. Clinical correlation is essential. LAB L501.1110 >60 mL/min Normal EST GFR 85 Result Comment: Non- GFR Calc LAB L501.1115 >60 mL/min Normal EST GFR - AA 103 Result Comment: GFR Calc LAB L501.1300 10-20 RATIO High BUN/CRE 28.3 LAB L501.2200 8.5-10.1 mg/dL CA Normal 8.9 LAB L501.5300 136-145 mmol/L NA Normal 140 LAB L501.5600 3.5-5.1 mmol/L K Normal 4.6 LAB L501.5900 98-107 mmol/L CL Normal 101 LAB L501.6100 21.0-32.0 mmol/L Normal CO2 30.0 LAB L501.6200 5-15 Normal GAP 9 Performed By: #### L500.2500 #### [facility] [address] [place], [address] HEMOGLOBIN A1C Collected: 12/29/2017 Status: F Source: [facility] 5:10 AM [facility] REPOSITORY Order Comment: ROOM 121 TYPE CODE TESTS RESULT OUT OF RANGE REFERENCE UNITS LAB L501.9985 4.2-6.3 % High HGB A1C 7.1 Performed By: #### L501.9985 #### [facility] [address] [place], [address] CBC-COMPLETE BLOOD CNT Collected: 11/27/2017 Status: F Source: [facility] NO DIFF 7:20 AM [facility] REPOSITORY Order Comment: ROOM 121 TYPE CODE TESTS RESULT OUT OF RANGE REFERENCE UNITS LAB L100.1000 4.4-11.0 K/mm3 Normal WBC 8.3 LAB L100.1200 4.6-6.2 M/mm3 Low RBC 3.96 LAB L100.1300 13.0-16.5 g/dl Low HGB 12.0 LAB L100.1400 40-54 % Low HCT 36.6 LAB L100.1500 80-94 fL Normal MCV 92.4 LAB L100.1600 27.0-32.0 pg Normal MCH 30.3 LAB L100.1700 32-36 g/gl Normal MCHC 32.8 LAB L100.1810 11.6-14.6 % Normal RDW CV 13.8 LAB L100.1820 35.1-43.9 fl High RDW SD 45.5 LAB L100.1900 150-450 K/mm3 Normal PLT 204 LAB L100.2000 6.2-12.0 fl High MPV 12.2 Performed By: #### L100.0500 #### [facility] [address] [place], [address] BASIC METABOLIC Collected: 11/27/2017 Status: F Source: ABIEL PROFILE ([facility]) 7:20 AM [facility] REPOSITORY Order Comment: ROOM 121 TYPE CODE TESTS RESULT OUT OF RANGE REFERENCE UNITS LAB L501.0100 74-106 mg/dL High GLU 133 Result Comment: Fasting Glucose result greater than or equal to 126 mg/dL suggests DIABETES MELLITUS per A.D.A. criteria. Please note revised GLUCOSE reference range effective 2017. LAB L501.1000 7-18 mg/dL High BUN 19 LAB L501.1100 0.70-1.30 mg/dL Normal CREAT,SERUM 0.86 Result Comment: The validity of the calculated GFR AND GFRAA in patients over 70 years has not been determined. Clinical correlation is essential. LAB L501.1110 >60 mL/min Normal EST GFR 92 Result Comment: Non- GFR Calc LAB L501.1115 >60 mL/min Normal EST GFR - AA 111 Result Comment: GFR Calc LAB L501.1300 10-20 RATIO High BUN/CRE 22.1 LAB L501.2200 8.5-10.1 mg/dL CA Normal 9.2 LAB L501.5300 136-145 mmol/L NA Normal 139 LAB L501.5600 3.5-5.1 mmol/L High K 5.2 LAB L501.5900 98-107 mmol/L CL Normal 101 LAB L501.6100 21.0-32.0 mmol/L Normal CO2 29.0 LAB L501.6200 5-15 Normal GAP 9 Performed By: #### L500.2500 #### [facility] [address] [place], [address] CBC-COMPLETE BLOOD CNT Collected: 10/29/2017 Status: F Source: [place] NO DIFF 5:32 AM [facility] REPOSITORY Order Comment: ROOM 121 TYPE CODE TESTS RESULT OUT OF RANGE REFERENCE UNITS LAB L100.1000 4.4-11.0 K/mm3 Normal WBC 9.7 LAB L100.1200 4.6-6.2 M/mm3 Low RBC 3.59 LAB L100.1300 13.0-16.5 g/dl Low HGB 10.7 LAB L100.1400 40-54 % Low HCT 33.8 LAB L100.1500 80-94 fL High MCV 94.2 LAB L100.1600 27.0-32.0 pg Normal MCH 29.8 LAB L100.1700 32-36 g/gl Low MCHC 31.7 LAB L100.1810 11.6-14.6 % Normal RDW CV 13.9 LAB L100.1820 35.1-43.9 fl High RDW SD 46.1 LAB L100.1900 150-450 K/mm3 Normal PLT 208 LAB L100.2000 6.2-12.0 fl High MPV 12.2 Performed By: #### L100.0500 #### [facility] [address] [place], [place], [address] BASIC METABOLIC Collected: 10/29/2017 Status: F Source: ABIEL PROFILE ([facility]) 5:32 AM [facility] REPOSITORY Order Comment: ROOM 121 TYPE CODE TESTS RESULT OUT OF RANGE REFERENCE UNITS LAB L501.0100 74-106 mg/dL High GLU 118 Result Comment: Fasting Glucose result from 100 to 125 mg/dL suggests IMPAIRED HOMEOSTASIS per A.D.A. criteria. Please note revised GLUCOSE reference range effective 2017. LAB L501.1000 7-18 mg/dL Normal BUN 12 LAB L501.1100 0.70-1.30 mg/dL Normal CREAT,SERUM 1.00 Result Comment: The validity of the calculated GFR AND GFRAA in patients over 70 years has not been determined. Clinical correlation is essential. LAB L501.1110 >60 mL/min Normal EST GFR 77 Result Comment: Non- GFR Calc LAB L501.1115 >60 mL/min Normal EST GFR - AA 93 Result Comment: GFR Calc LAB L501.1300 10-20 RATIO Normal BUN/CRE 12.0 LAB L501.2200 8.5-10.1 mg/dL CA Normal 8.9 LAB L501.5300 136-145 mmol/L NA Normal 139 LAB L501.5600 3.5-5.1 mmol/L High K 5.5 LAB L501.5900 98-107 mmol/L CL Normal 103 LAB L501.6100 21.0-32.0 mmol/L Normal CO2 32.0 LAB L501.6200 5-15 Low GAP 4 Performed By: #### L500.2500 #### [facility] [address] [place], [address] CBC W/DIFF, AUTOMATED Collected: 10/08/2017 Status: F Source: [facility] 6:55 AM [facility] REPOSITORY Order Comment: 121-1 TYPE CODE TESTS RESULT OUT OF RANGE REFERENCE UNITS LAB L100.1000 4.4-11.0 K/mm3 High WBC 11.4 LAB L100.1200 4.6-6.2 M/mm3 Low RBC 3.51 LAB L100.1300 13.0-16.5 g/dl Low HGB 10.4 LAB L100.1400 40-54 % Low HCT 32.8 LAB L100.1500 80-94 fL Normal MCV 93.4 LAB L100.1600 27.0-32.0 pg Normal MCH 29.6 LAB L100.1700 32-36 g/gl Low MCHC 31.7 LAB L100.1810 11.6-14.6 % Normal RDW CV 13.9 LAB L100.1820 35.1-43.9 fl High RDW SD 47.2 LAB L100.1900 150-450 K/mm3 Normal PLT 194 LAB L100.2000 6.2-12.0 fl Normal MPV 11.4 LAB L100.2100 47-70 % High NEUT% 80.0 LAB L100.2200 19-41 % Low LY% 9.7 LAB L100.2300 0-10 % Normal MONO% 8.8 LAB L100.2400 0-5 % Normal EO% 1.0 LAB L100.2500 0-1 % Normal BASO% 0.2 LAB L100.2550 0.0-0.9 % Normal IM GRAN % 0.300 Result Comment: IG% - Immature Granulocytes (promyelocytes, myelocytes and metamyelocytes) > 1% indicates that a LEFT SHIFT is Present. LAB L100.2620 2.0-7.7 X10 3/uL High Absolute Neut 9.1 LAB L100.2720 0.83-4.51 X10 3/ul Normal Absolute Lymph 1.11 Performed By: #### L100.0100 #### [facility] [address] [place], [address] BASIC METABOLIC Collected: 10/08/2017 Status: F Source: ABIEL PROFILE ([facility]) 6:55 AM [facility] REPOS[facility] Order Comment: 121-1 TYPE CODE TESTS RESULT OUT OF RANGE REFERENCE UNITS LAB L501.0100 74-106 mg/dL High GLU 181 Result Comment: Fasting Glucose result greater than or equal to 126 mg/dL suggests DIABETES MELLITUS per A.D.A. criteria. Please note revised GLUCOSE reference range effective 2017. LAB L501.1000 7-18 mg/dL Normal BUN 16 LAB L501.1100 0.70-1.30 mg/dL Normal CREAT,SERUM 0.80 Result Comment: The validity of the calculated GFR AND GFRAA in patients over 70 years has not been determined. Clinical correlation is essential. LAB L501.1110 >60 mL/min Normal EST GFR 99 Result Comment: Non- GFR Calc LAB L501.1115 >60 mL/min Normal EST GFR - AA 120 Result Comment: GFR Calc LAB L501.1300 10-20 RATIO Normal BUN/CRE 19.9 LAB L501.2200 8.5-10.1 mg/dL Low CA 8.3 LAB L501.5300 136-145 mmol/L NA Normal 138 LAB L501.5600 3.5-5.1 mmol/L K Normal 3.8 LAB L501.5900 98-107 mmol/L CL Normal 102 LAB L501.6100 21.0-32.0 mmol/L Normal CO2 29.0 LAB L501.6200 5-15 Normal GAP 7 Performed By: #### L500.2500 #### [facility] [address] [place], [address] CBC-COMPLETE BLOOD CNT Collected: 10/05/2017 Status: F Source: [facility] NO DIFF 5:26 AM [facility] REPOSIT[facility] Order Comment: ROOM 121 TYPE CODE TESTS RESULT OUT OF RANGE REFERENCE UNITS LAB L100.1000 4.4-11.0 K/mm3 High WBC 16.7 LAB L100.1200 4.6-6.2 M/mm3 Low RBC 3.48 LAB L100.1300 13.0-16.5 g/dl Low HGB 10.6 LAB L100.1400 40-54 % Low HCT 32.6 LAB L100.1500 80-94 fL Normal MCV 93.7 LAB L100.1600 27.0-32.0 pg Normal MCH 30.5 LAB L100.1700 32-36 g/gl Normal MCHC 32.5 LAB L100.1810 11.6-14.6 % Normal RDW CV 14.6 LAB L100.1820 35.1-43.9 fl High RDW SD 49.4 LAB L100.1900 150-450 K/mm3 Normal PLT 207 LAB L100.2000 6.2-12.0 fl Normal MPV 11.7 Performed By: #### L100.0500 #### [facility] [address] [place], [address] BASIC METABOLIC Collected: 10/05/2017 Status: F Source: ABIEL PROFILE ([facility]) 5:26 AM [facility] REPOSIT[facility] Order Comment: ROOM 121 TYPE CODE TESTS RESULT OUT OF RANGE REFERENCE UNITS LAB L501.0100 74-106 mg/dL High GLU 280 Result Comment: Glucose result greater than or equal to 200 mg/dL suggests DIABETES MELLITUS per A.D.A. criteria. Please note revised GLUCOSE reference range effective 2017. LAB L501.1000 7-18 mg/dL High BUN 28 LAB L501.1100 0.70-1.30 mg/dL Normal CREAT,SERUM 1.23 Result Comment: The validity of the calculated GFR AND GFRAA in patients over 70 years has not been determined. Clinical correlation is essential. LAB L501.1110 >60 mL/min Normal EST GFR 61 Result Comment: Non- GFR Calc LAB L501.1115 >60 mL/min Normal EST GFR - AA 73 Result Comment: GFR Calc LAB L501.1300 10-20 RATIO High BUN/CRE 22.8 LAB L501.2200 8.5-10.1 mg/dL CA Normal 8.6 LAB L501.5300 136-145 mmol/L NA Normal 137 LAB L501.5600 3.5-5.1 mmol/L K Normal 5.1 LAB L501.5900 98-107 mmol/L CL Normal 101 LAB L501.6100 21.0-32.0 mmol/L Normal CO2 29.0 LAB L501.6200 5-15 Normal GAP 7 Performed By: #### L500.2500 #### [facility] [address] [place], [address] 12 LEAD ELECTROCARDIOGRAM Observed: 09/28/2017 Status: F Source: [facility] 8:58 AM [facility] REPOSITORY [facility] [address] [place] [address] 12 Lead EKG 09/23/17 1112 MR#: [id number] Acct: [id number] Name: GALO RENTERIA Rep #: [id number] : 1940 77 From: Sancho Hall MD Attending Dr: Bernardo Valdes MD Status: DIS IN Ordering Dr: Lux Valadez MD Date: 09/23/17 Location: [facility] Sex: M C Admitted: 09/23/17 Test Reason : LOC Blood Pressure : / mmHG Vent. Rate : 077 BPM Atrial Rate : 077 BPM P-R Int : 166 ms QRS Dur : 092 ms QT Int : 396 ms P-R-T Axes : 049 005 035 degrees QTc Int : 448 ms Normal sinus rhythm Low voltage QRS (limb leads) Confirmed by RAFAEL COLVIN, SANCHO ([id number]), subeditor DEEPTI ERAZO ([id number]) on 09/25/2017 2:38:45 PM Referred By: DEAN Confirmed By:SANCHO HALL MD 09/25/17 1438 Date Sancho Hall MD CC: Aaron Valadez MD; Kelvin Trammell MD; Bernardo Valdes MD Signed DISCHARGE SUMMARY Observed: 09/25/2017 Status: F Source: [place] 5:17 PM [facility] REPOSITORY [facility] Medical Records Department [address] [place] [address] Discharge Summary 09/25/17 1536 MR#: [id number] Acct: [id number] Name: GALO RENTERIA Ulises Rep #: [id number] : 1940 77 From: [facility] PCP: Kelvin Trammell MD Status: DIS IN Y Location: [place] [id number] <[facility] - Last Filed: 09/25/17 15:36> Discharge Date and Diagnosis Date of Admission: 09/23/17 Date of Discharge: 09/25/17 - Primary Discharge Diagnosis Active and Suspected Problems Acute metabolic encephalopathy (Acute) 2/2 dehydration Hypotension 2/2 dehydration CAD Dementia Hx TIA Seizure hx HLD Chronic anemia Parkinson with associated orthostatic hypotension DMt2 Hx Ischemic colitis CVD HTN - Secondary Discharge Diagnosis Chronic Problems Chronic airway obstruction (Chronic) mild 120 PY hx smoking Coronary artery disease (Chronic) History of TIAs (Chronic) Seizure disorder (Chronic) Hyperlipidemia (Chronic) Normochromic normocytic anemia (Chronic) Parkinson disease (Chronic) Diabetic peripheral neuropathy (Chronic) Gait abnormality (Chronic) History of.. 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 No demonstrated acute cardiopulmonary process. Operations: None Procedures: None Summary of Care Provided: Physical exam on day of discharge: General: Resting comfortably NAD Psych: A/Ox3 normal affect HEENT: PEARRLA AT NC Neck: Supple NT CV: RRR no m/t/r/g/h Resp: CTA Abd: [id number] Soft NT no guarding or rigidity Ext: DP2+= no edema Skin: W/D normal turgor Lymph/Heme: No active bleeding or adenopathy Neuro: CN2-12 intact Hospital course: The patient is a 77 year old M with extensive medical history as above who presented to the ER from [facility] with low blood pressure and altered mental status. His blood pressure was reportedly as low as 70 systolic and apparently he had appeared to be about to be passed out and he felt dehydrated. He was given several boluses of IV fluids. He had an elevated lactate at 4.7. This was felt to be secondary to dehydration. He did have a mildly elevated BUN. He had a negative troponin. He had a elevated potassium which improved with IV hydration. He was admitted to the PCU and maintained on telemetry. He was continued to administer IV fluids. It was felt that this was acute metabolic encephalopathy and lactic acidosis likely secondary to dehydration. Dehydration was evidenced by slightly elevated BUN and ketone level in his urine as well as hypotension responsive to IV fluids. His lactic acidosis improved with IV fluids. His BUN improved with IV fluids. The following day he had no further complaints. He was maintained on telemetry and had no acute issues. [facility]. He will need to follow-up with his PCP in 1-2 weeks. Please follow-up with his BMP closely. This patient was seen by [facility] O[facility] PA-C under the supervision of Doctor Lucio. [] Discharge Diet: Low fat/ Low Cholesterol, 1800 Calorie Control Diet, 2000 mg Sodium Diet Home Medications: Medications to take at Discharge Atorvastatin Calcium [Lipitor] 40 mg PO QHS 08/31/15 Donepezil HCl 10 mg PO QHS 08/31/15 Ferrous Sulfate 325 mg PO DAILY 08/31/15 levETIRAcetam tablet [Keppra tablet] 500 mg PO BID 08/31/15 Metoprolol(XL)Succ [Toprol Xl (Beta Jeanette)] 25 mg PO DAILY 09/01/15 Multivitamins,Ther W-Minerals [Multivitamin With Minerals] 1 tablet PO DAILY 09/01/15 Sitagliptin Phosphate [Januvia] 50 mg PO DAILY 09/01/15 Buspirone HCl 15 mg PO BID 10/23/15 Metformin HCl [Glucophage] 1,000 mg PO BIDCM 10/23/15 Omeprazole [Prilosec] 20 mg PO DAILY 10/23/15 Acetaminophen [Tylenol] 650 mg PO Q4H PRN 09/23/17 Carbidopa/Levodopa [Carbidopa-Levo 25-100 mg Odt] 1 each PO TID 09/23/17 Docusate Sodium [Colace] 200 mg PO QHS 09/23/17 Escitalopram Oxalate [Lexapro] 5 mg PO DAILY 09/23/17 Guaifenesin [Robitussin] 10 ml PO Q4H PRN PRN 09/23/17 Hydrocodone/Acetaminophen [[place] 5-325 Tablet] 1 each PO Q4H PRN 09/23/17 Primidone [Mysoline] 50 mg PO BID 09/23/17 Tamsulosin HCl [Flomax] 0.4 mg PO DAILY@1730 09/23/17 Primary Care Physician: Kelvin Trammell MD [Primary Care Provider] - Please follow up with your Primary Care Physician in: 1-2 weeks Disposition: [facility] facility Minutes spent on discharge:: 35 Patient Condition:: Stable Medical Necessity - Tobacco Use Smoking Status: Former smoker Meaningful Use Info Meaningful Use Diagnoses (Choose all that apply): None applicable <Bernardo Valdes - Last Filed: 09/25/17 17:17> Discharge Date and Diagnosis - Secondary Discharge Diagnosis Chronic Problems Chronic airway obstruction (Chronic) mild 120 PY hx smoking Coronary artery disease (Chronic) History of TIAs (Chronic) Seizure disorder (Chronic) Hyperlipidemia (Chronic) Normochromic normocytic anemia (Chronic) Parkinson disease (Chronic) Diabetic peripheral neuropathy (Chronic) Gait abnormality (Chronic) History of.. 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 I have independently interviewed and examined the patient and reviewed pertinent history, examination findings, laboratory and plan of management. I have reviewed the note and agree with the documented findings with the few additional points. In brief, patient is admitted for acute metabolic encephalopathy secondary to dehydration and lactic acidosis. Lactic acidosis probably from transient hypotension and hypoperfusion, coupled with metformin 1000 mg p.o. twice daily and sitagliptin although sepsis unlikely. UA is negative. blood cultures and urine culture are are negative. I have discussed my assessment with [facility] and orders have been reviewed. Code Visit Inpatient E AND M: [id number] Disch Hosp 09/25/17 1546 <Electronically signed by [facility]> Date [facility] 09/25/17 1717<Electronically signed by Bernardo Valdes MD> Cosigner Signature (if applicable): Date Bernardo Valdes MD CC: АЛЕКСАНДР Oden; Kelvin Trammell MD; Bernardo Valdes MD Signed TRANSFER TO [facility] Observed: 09/25/2017 Status: F Source: [facility] 1:25 PM [facility] REPOSIT[facility] Medical Records Department [address] [place] [address] Transfer to [facility] MR#: [id number] Acct: [id number] Name: GALO RENTERIA Rep #: [id number] : 1940 77 From: [facility] PCP: Kelvin Trammell MD Status: ADM IN [place] (Patient) (Health Ins. Claim No.) (Day of Discharge to Facility) Certification of patient admission REQUIRED AT TIME OF ADMISSION. I CERTIFY THAT POST-HOSPITAL ECF SERVICES ARE REQUIRED TO BE GIVEN ON AN IN-PATIENT BASIS BECAUSE OF THE ABOVE NAMED PATIENT'S NEED FOR SENIOR CARE CARE ON A CONTINUING BASIS FOR THE CONDITION(S) FOR WHICH HE/SHE WAS RECEIVING IN-PATIENT HOSPITAL SERVICES PRIOR TO HIS/HER TRANSFER TO THE ECF. 09/25/17 1212 <Electronically signed by Duke FOUNTAIN> Date Duke FOUNTAIN - Diet 09/23/17 15:10 Diet: Cardiac: Calorie-Controlled Food consistency:: Regular Liquid Consistency:: Regular/Thin How many daily calories?: 1800 calorie - Routine Orders/Code Status Suppository Type: Dulcolax 10mg Suppository Frequency: Daily PRN Routine Lab Work: CBC - 3 days, BMP - 3 days - Therapies Physical Therapy: Eval and Treat Occupational Therapy: Eval and Treat - Problem/Diagnosis (1) Acute metabolic encephalopathy Status: Acute Current Visit: Yes (2) Dehydration Status: Acute Current Visit: No (3) Hypotension Status: Acute Current Visit: Yes (4) Chronic airway obstruction Status: Chronic Comment: mild 120 PY hx smoking Current Visit: No (5) Coronary artery disease Status: Chronic Current Visit: No (6) History of TIAs Status: Chronic Current Visit: No (7) Seizure disorder Status: Chronic Current Visit: No (8) Hyperlipidemia Status: Chronic Current Visit: No (9) Parkinson disease Status: Chronic Current Visit: No (10) Diabetic peripheral neuropathy Status: Chronic Current Visit: No (11) Gait abnormality Status: Chronic Comment: History of.. 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: Chronic Comment: R AVM repair w craniotomy 1997 Current Visit: No (15) Hypertension Status: Chronic Current Visit: No (16) Diabetes mellitus type 2 in nonobese Status: Chronic Current Visit: No - Allergies/Procedures Done in Hospital Allergies/Adverse Reactions: Allergies PPD Adverse Reaction (Uncoded 09/23/17 11:20) Other Procedures: None - Type of Care/Length of Stay Estimated LOS: Convalescent Care Less Than 30 days Type of Care Needed: Skilled Rehab Potential: Fair Prognosis: Fair - Additional Orders/Day of Discharge Day of Discharge: 09/25/17 - Dietary and Speech Recommendations Dietitian Recommendations/Changes: Rec continuing cardiac, 1800 calorie-controlled diet. May consider liberal regular diet if intake inadquate at next follow-up. - Follow Up Care Primary Care Physician: Kelvin Trammell MD [Primary Care Provider] - Please follow up with your Primary Care Physician in: 1-2 weeks 09/25/17 1212 <Electronically signed by Duke FOUNTAIN> Date Duke FOUNTAIN CC: Kelvin Trammell MD Signed BEDSIDE GLUCOSE Collected: 09/25/2017 Status: F Source: [place] 12:12 PM [facility] REPOSITORY TYPE CODE TESTS RESULT OUT OF REFERENCE UNITS RANGE LAB L501.080 70-110 mg/dL High BEDSIDE GLU 121 Result Comment: MANAGEMENT OF PATIENT CARE PER NURSING PROTOCOL Performed By: #### L501.080 #### [facility] Point of Care [address] [place] [address] BEDSIDE GLUCOSE Collected: 09/25/2017 Status: F Source: [place] 6:47 AM [facility] REPOSITORY TYPE CODE TESTS RESULT OUT OF RANGE REFERENCE UNITS LAB L501.080 70-110 mg/dL Normal BEDSIDE GLU 102 Result Comment: MANAGEMENT OF PATIENT CARE PER NURSING PROTOCOL Performed By: #### L501.080 #### [facility] Point of Care [address] [place] [address] BEDSIDE GLUCOSE Collected: 09/24/2017 Status: F Source: [place] 9:46 PM [facility] REPOSITORY TYPE CODE TESTS RESULT OUT OF RANGE REFERENCE UNITS LAB L501.080 70-110 mg/dL Normal BEDSIDE GLU 107 Result Comment: MANAGEMENT OF PATIENT CARE PER NURSING PROTOCOL Performed By: #### L501.080 #### [facility] Point of Care [address] [place] [address] BEDSIDE GLUCOSE Collected: 09/24/2017 Status: F Source: [place] 4:19 PM [facility] REPOSITORY TYPE CODE TESTS RESULT OUT OF RANGE REFERENCE UNITS LAB L501.080 70-110 mg/dL Normal BEDSIDE GLU 89 Result Comment: MANAGEMENT OF PATIENT CARE PER NURSING PROTOCOL Performed By: #### L501.080 #### [facility] Point of Care [address] [place] [address] BEDSIDE GLUCOSE Collected: 09/24/2017 Status: F Source: [place] 11:27 AM [facility] REPOSITORY TYPE CODE TESTS RESULT OUT OF REFERENCE UNITS RANGE LAB L501.080 70-110 mg/dL High BEDSIDE GLU 153 Result Comment: MANAGEMENT OF PATIENT CARE PER NURSING PROTOCOL Performed By: #### L501.080 #### [facility] Point of Care [address] [place] [address] BEDSIDE GLUCOSE Collected: 09/24/2017 Status: F Source: [place] 7:06 AM [facility] REPOSITORY TYPE CODE TESTS RESULT OUT OF RANGE REFERENCE UNITS LAB L501.080 70-110 mg/dL Normal BEDSIDE GLU 110 Result Comment: MANAGEMENT OF PATIENT CARE PER NURSING PROTOCOL Performed By: #### L501.080 #### [facility] Point of Care [address] [place] [address] BASIC METABOLIC Collected: 09/24/2017 Status: F Source: [place] PROFILE (BMP) 6:05 AM [facility] REPOSITORY TYPE CODE TESTS RESULT OUT OF RANGE REFERENCE UNITS LAB L501.0100 74-106 mg/dL Normal GLU 102 Result Comment: Fasting Glucose result from 100 to 125 mg/dL suggests IMPAIRED HOMEOSTASIS per A.D.A. criteria. Please note revised GLUCOSE reference range effective 2017. LAB L501.1000 7-18 mg/dL Normal BUN 11 LAB L501.1100 0.70-1.30 mg/dL Low CREAT,SERUM 0.67 Result Comment: The validity of the calculated GFR AND GFRAA in patients over 70 years has not been determined. Clinical correlation is essential. LAB L501.1110 >60 mL/min Normal EST GFR 123 Result Comment: Non- GFR Calc LAB L501.1115 >60 mL/min Normal EST GFR - AA 149 Result Comment: GFR Calc LAB L501.1255 ml/min Normal Estimated CRCL 52.62 LAB L501.1300 10-20 RATIO Normal BUN/CRE 16.5 LAB L501.2200 8.5-10 mg/dL Low .1 CA 7.5 LAB L501.5300 136-14 mmol/L Normal 5 NA 142 LAB L501.5600 3.5-5. mmol/L Normal 1 K 4.3 LAB L501.5900 98-107 mmol/L High CL 112 LAB L501.6100 21.0-3 mmol/L Normal 2.0 CO2 24.0 LAB L501.6200 5-15 Normal GAP 6 Performed By: #### L500.2500 #### [facility] [address] [place], [address] CBC W/DIFF, AUTOMATED Collected: 09/24/2017 Status: F Source: [place] 6:05 AM [facility] REPOSITORY TYPE CODE TESTS RESULT OUT OF RANGE REFERENCE UNITS LAB L100.1000 4.4-11.0 K/mm3 Normal WBC 6.4 LAB L100.1200 4.6-6.2 M/mm3 Low RBC 2.93 LAB L100.1300 13.0-16.5 g/dl Low HGB 9.0 LAB L100.1400 40-54 % Low HCT 27.7 LAB L100.1500 80-94 fL High MCV 94.5 LAB L100.1600 27.0-32.0 pg Normal MCH 30.7 LAB L100.1700 32-36 g/gl Normal MCHC 32.5 LAB L100.1810 11.6-14.6 % Normal RDW CV 13.5 LAB L100.1820 35.1-43.9 fl High RDW SD 44.5 LAB L100.1900 150-450 K/mm3 Normal PLT 155 LAB L100.2000 6.2-12.0 fl Normal MPV 11.2 LAB L100.2100 47-70 % Normal NEUT% 66.3 LAB L100.2200 19-41 % Low LY% 17.1 LAB L100.2300 0-10 % High MONO% 14.0 LAB L100.2400 0-5 % Normal EO% 2.2 LAB L100.2500 0-1 % Normal BASO% 0.2 LAB L100.2550 0.0-0.9 % Normal IM GRAN % 0.200 Result Comment: IG% - Immature Granulocytes (promyelocytes, myelocytes and metamyelocytes) > 1% indicates that a LEFT SHIFT is Present. LAB L100.2620 2.0-7.7 X10 3/uL Normal Absolute Neut 4.3 LAB L100.2720 0.83-4.51 X10 3/ul Normal Absolute Lymph 1.10 Performed By: #### L100.0100 #### [facility] [address] [place], [address] BEDSIDE GLUCOSE Collected: 09/23/2017 Status: F Source: [place] 9:18 PM [facility] REPOSITORY TYPE CODE TESTS RESULT OUT OF REFERENCE UNITS RANGE LAB L501.080 70-110 mg/dL High BEDSIDE GLU 139 Result Comment: MANAGEMENT OF PATIENT CARE PER NURSING PROTOCOL Performed By: #### L501.080 #### [facility] Point of Care [address] [place] [address] POTASSIUM Collected: 09/23/2017 Status: F Source: [place] 7:58 PM [facility] REPOSITORY TYPE CODE TESTS RESULT OUT OF RANGE REFERENCE UNITS LAB L501.5600 3.5-5.1 mmol/L Normal K 4.9 Performed By: #### L501.5600 #### [facility] [address] [place], [address] BEDSIDE GLUCOSE Collected: 09/23/2017 Status: F Source: [place] 4:53 PM [facility] REPOSITORY TYPE CODE TESTS RESULT OUT OF REFERENCE UNITS RANGE LAB L501.080 70-110 mg/dL High BEDSIDE GLU 122 Result Comment: MANAGEMENT OF PATIENT CARE PER NURSING PROTOCOL Performed By: #### L501.080 #### [facility] Point of Care [address] [place] [address] LACTIC ACID Collected: 09/23/2017 Status: F Source: [place] 4:15 PM [facility] REPOSITORY TYPE CODE TESTS RESULT OUT OF REFERENCE UNITS RANGE LAB L503.6005 0.4-2.0 mmol/L High LACTIC ACID 2.4 Result Comment: Critical Result(s) Called at: 17:09:14 09/23/2017 by: Radha Arnold to AGill Performed By: #### L503.6005 #### [facility] [address] [place], [address] HISTORY AND PHYSICAL Observed: 09/23/2017 Status: F Source: [place] EXAM 3:43 PM [facility] REPOSITORY [facility] Medical Records Department [address] [place] [address] History and Physical 09/23/17 1512 MR#: [id number] Acct: [id number] Name: AugustoGalo Ulises Rep #: [id number] : 1940 77 From: Verónica Monroe TRANSFORMER TESTER-C PCP: Kelvin Trammell MD Status: [id number] <Verónica Monroe - Last Filed: 09/23/17 15:34> Problem List (1) Chronic airway obstruction Status: Chronic Comment: mild 120 PY hx smoking (2) Coronary artery disease Status: Chronic (3) History of TIAs Status: Chronic (4) Seizure disorder Status: Chronic (5) Hyperlipidemia Status: Chronic (6) Syncope Status: Resolved Comment: resolved. vasovagal (7) Dehydration Status: Acute (8) Normochromic normocytic anemia Status: Chronic (9) Parkinson disease Status: Chronic (10) Diabetic peripheral neuropathy Status: Chronic (11) Gait abnormality Status: Chronic Comment: History of.. 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 The patient is a 77 year old M who presents to Emergency Room due to low blood pressure at Assisted Living Facility. Blood pressure at nursing facility reported to be 70s systolically. Patient states he was kind of out of it earlier today and does not recall any specific events that brought him to ER. He states he was told he is dehydrated. Patient denies syncope, dizziness, fall. Denies recent illness. Denies nausea, vomiting, diarrhea. Denies cough, fever, chills. He has a past medical history of hypertension, hyperlipidemia, coronary artery disease, type 2 diabetes mellitus, Alzheimer's dementia, history of spontaneous intraparenchymal intracranial hemorrhage due to cerebral AVM, history of ischemic colitis, Parkinson's disease, chronic anemia, seizure disorder, COPD, chronic kidney disease. Past Medical History Past Medical History (Chronic Problems): Chronic Problems Chronic airway obstruction (Chronic) mild 120 PY hx smoking Coronary artery disease (Chronic) History of TIAs (Chronic) Seizure disorder (Chronic) Hyperlipidemia (Chronic) Normochromic normocytic anemia (Chronic) Parkinson disease (Chronic) Diabetic peripheral neuropathy (Chronic) Gait abnormality (Chronic) History of.. 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 CVD (cerebrovascular disease) (Chronic) Hypertension (Chronic) Diabetes mellitus type 2 in nonobese (Chronic) Allergies PPD Adverse Reaction (Uncoded 09/23/17 11:20) Other Home Medications: Ambulatory Orders Medication Instructions Recorded Atorvastatin Calcium [Lipitor] 40 mg PO QHS 08/31/15 Surgical History: cholecystectomy, TURP, - - craniontomy for R AVM 1997 Psychiatric History: No pertinent psych hx Lives: - - With in Assisted Living Facility Smoking Status: Former smoker Alcohol: None Drugs: None - *Family History Maternal History Items: No pertinent history, - - no premature cardiac Paternal History Items: No pertinent history, - - no premature cardiac Review of Systems Constitutional: Denies: Chills, Fever, Weight Change HEENT: Denies: Head Aches, Sinus Congestion, Sinus Drainage Cardiovascular: Denies: Chest Pain, Edema, Palpitations, Syncope Respiratory: Denies: Cough, Shortness of breath at rest, Sputum production Gastrointestinal: Denies: Abdominal Pain, Nausea, Vomiting Genitourinary: Denies: Dysuria Musculoskeletal: Denies: Joint Pain, Joint Tenderness Skin: Denies: Rash, Wounds Neurological: Denies: Numbness, Tingling, Focal weakness Psychiatric: Denies: Anxiety, Depression, Homicidal Ideations, Suicidal Ideations Hematologic/ Lymphatic: Denies: Easy Bruising, Easy Bleeding VTE Information - Inpt Only VTE Present on Admission: No VTE Mechan Device Prophylaxis: None VTE Pharm Prophylaxis ordered?: Yes - Physical Exam General: Alert, Cooperative, No apparent distress, - - Pleasant HEENT: Atraumatic, PERRLA, EOMI, Normocephalic Oral: Dry Mucosa Neck: Supple, No JVD, Negative Carotid Bruits Lungs: Clear to auscultation, Normal air movement Cardiovascular: Regular rate, Regular Rhythm, Normal S1, Normal S2, No murmurs Abdomen: Bowel Sounds Present, Soft, Non Tender, Non-Distended Extremities: No clubbing, No cyanosis, No edema, Capillary Refill Less than 3 Seconds Skin: No rashes, No breakdown Musculoskeletal: No Tenderness to Palpation of Joints or Extremities Neurological: Cranial nerves II-XII grossly intact, Neuro grossly intact Psych/Mental Status: Normal Affect, Appropriate Vital Signs Temp Pulse Resp BP Pulse Ox 97.0 F L 76 14 132/67 H 96 09/23/17 14:28 09/23/17 14:28 09/23/17 14:28 09/23/17 14:28 09/23/17 14:28 Oxygen Flow Rate (L/min) 2 Oxygen Delivery Method Room Air Weight: 79.1 kg Body Mass Index (BMI) 25.0 Finger Stick Blood Glucose 194 Laboratory Tests Past 24 Hrs Assessment/Plan All Active Problems Dehydration (Acute) Cognitive deficits (Resolved) History of Hematemesis (Resolved) History of Ischemic Colitis (Resolved) History of tobacco use (Resolved) History of upper gastrointestinal bleeding (Resolved) Syncope (Resolved) 1. Hypotension, secondary to mild dehydration-patient denies recent illness. Denies nausea, vomiting, diarrhea. Hypotension resolved after IV fluids. Continue IV fluids. Monitor blood pressure. Complete orthostatic vitals in a.m. 2. Hyperkalemia-secondary to #1. Repeat potassium this evening and in a.m. 3. Lactic acidosis-no signs of infectious etiology. Suspect secondary to #1. Repeat lactic acid per protocol. Afebrile. Chest x-ray shows no acute process. Urinalysis unremarkable. Blood and urine cultures pending. Continue IV fluids as noted above. 4. Alzheimer's dementia/Parkinson's disease-resides with in assisted living facility. PT/OT. Continue home regimen including buspirone, carbidopa- levo, donepezil, Lexapro. 5. Coronary artery disease-denies chest pain. EKG without evidence of ischemia. Troponin negative. Continue statin, metoprolol. 6. Type 2 diabetes mellitus-hold metformin. Continue Januvia. Accu-Cheks before meals at bedtime with sliding scale insulin. Hemoglobin A1c in June 2017 6.2%. 7. Chronic kidney disease stage II-stable, monitor BMP. 8. Hypertension-continue home metoprolol regimen. 9. Hyperlipidemia-continue statin. 10. Mild chronic COPD-no acute exacerbation. 11. History of spontaneous intraparenchymal intracranial hemorrhage due to cerebral AVM 12. Chronic normochromic normocytic anemia-continue iron supplementation. 13. History of seizure disorder-continue home Keppra, primidone regimen. 14. History of ischemic colitis 15. BPH-continue home Flomax regimen. 16. GERD-continue PPI. DVT prophylaxis-heparin subcu. This patient was seen by DESIRE Powers under the supervision of Dr. Lorenzo. <Ashish Lorenzo - Last Filed: 09/23/17 15:43> History of Present Illness The patient is a 77 year old M [] Past Medical History Allergies PPD Adverse Reaction (Uncoded 09/23/17 11:20) Other - Physical Exam Vital Signs Temp Pulse Resp BP Pulse Ox 97.0 F L 76 14 132/67 H 96 09/23/17 14:28 09/23/17 14:28 09/23/17 14:28 09/23/17 14:28 09/23/17 14:28 Oxygen Flow Rate (L/min) 2 Oxygen Delivery Method Room Air Weight: 174 lb 6.17 oz Body Mass Index (BMI) 25.0 Finger Stick Blood Glucose 194 Laboratory Tests Past 24 Hrs Assessment/Plan Hospitalist note: I am seeing this patient in conjunction with Verónica Monroe. I independently seen and examined the patient. History and physical, laboratory data and imaging studies reviewed and I agree with above admission and treatment plan. Patient was brought to the ER from assisted living because of low blood pressure, reportedly his systolic blood pressure was in 70s. At this time, he has no complaints. He mentioned that he was dehydrated and he was about to pass out or actually passed out which is not clear. No chest pain or shortness of breath. Denied abdominal pain, nausea vomiting. Denies constipation or diarrhea. He had a history of seizure disorder and he has been on Keppra and primidone and his seizures seem to be under control. He had a history of type 2 diabetes mellitus and he has been on metformin with good control, most recent hemoglobin A1c was on June, and it was 6.2. He had a history of dementia and he has been on donepezil and carbidopa levodopa. In the emergency department, his blood pressure was stable after he received IV fluids by paramedics, other vital signs were stable. His routine blood work was remarkable for hemoglobin of 10.8 g/dL, potassium 5.5. Lactic acid was 4.7. LFT was unremarkable. Urine analysis revealed no evidence of acute cystitis. Troponin was negative. Chest x-ray showed no acute infiltrate, no evidence of pneumonia. EKG revealed normal sinus rhythm, normal QRS, normal QTC and no acute ischemic changes. - Physical Exam General: Alert, Cooperative, No apparent distress. HEENT: Atraumatic, PERRLA, EOMI. Neck: Supple, No JVD, Negative Carotid Bruits, Trachea Midline, Thyroid Normal. Lungs: Clear to auscultation, Normal air movement, No rhonchi, No wheeze, No rales. Cardiovascular: Regular rate, Regular Rhythm, Normal S1, Normal S2, PMI Normal. Abdomen: Bowel Sounds Present, Soft, Non Tender, Non-Distended, No Hepato-splenomegaly. Extremities: No clubbing, No cyanosis, No edema Skin: No rashes, No breakdown Neurological: Neuro grossly intact, cranial nerves are intact, normal power. Vital Signs are stable at this time. Assessment and plan: #1 hypovolemic shock: With transient hypotension likely due to dehydration. No evidence of acute illness. Reportedly, systolic blood pressure was in the 70s at the assisted living, improved with IV fluids and stable at this time. His lactic acid is 4.7. No evidence of infection. He received a total of 4 L of IV fluids. Plan to admit to PCU, cardiac monitoring, continue maintenance IV fluids, repeat lactic acid in 3 hours, repeat orthostatic vitals tomorrow morning, repeat CBC and BMP tomorrow morning, PT OT evaluation and treatment. #2 lactic acidosis: Again, likely due to hypotension. No evidence of infection. Urine and blood culture sent. No indication for IV antibiotics. Plan to continue IV fluids, repeat lactic acid in 3 hours. #3 mild hyperkalemia: Without EKG changes. Potassium is 5.5. Plan for IV fluids, repeat potassium at 8 PM tonight. #4 other chronic medical problems: Stable, continue home medications as above. This note was generated with [employer] software. It may contain incorrect words, spelling, and punctuation that were not noted in checking the note before signing. Code Visit Inpatient E AND M: 58626 Init Hosp L3 09/23/17 1534 <Electronically signed by Verónica MARTINC> Date Verónica Monroe TRANSFORMER TESTERAashishC 09/23/17 1543<Electronically signed by Ashish Lorenzo MD> Cosigner Signature: Date (if applicable) Ashish Lorenzo MD CC: DESIRE Monroe; Ashish Lorenzo; Kelvin Trammell MD Signed EMERGENCY DEPARTMENT Observed: 09/23/2017 Status: F Source: [place] SUMMARY 2:57 PM [facility] REPOSITORY [facility] Medical Records Department [address] [place] [address] Emergency Department Summary 09/23/17 1454 MR#: [id number] Acct: [id number] Name: Galo Renteria Rep #: [id number] : 1940 77 From: Lux Valadez MD PCP: Kelvin Trammell MD Status: REG ER - ER Visit Summary Date of Service: 09/23/17 Chief Complaint: Low blood pressure History of Present Illness: The patient is a 77 M presenting from assisted living with low blood pressure. Reportedly his pressure was in the 70s systolic. He has no specific complaints. Denies pain. Per paramedics he was diaphoretic and hypotensive on arrival. Physical Examination: Vitals are within normal limits on arrival. He does appear somewhat dehydrated. Neck is supple. Heart tones are regular and without murmur. Lungs are clear bilaterally. Abdomen is soft and nontender. No focal or lateralizing neuro findings. He is at baseline mental status according to staff Test Results: His lactic acid is elevated at 0.7. White blood cell count is normal. Creatinine normal. No fever here. He was given several liters of IV fluid and remained normotensive. He has no obvious evidence of infection. Chest x-ray is clear and urine does not appear infected. Urine and blood cultures were both sent. Emergency Department Course and Treatment: His blood pressure remained normal with IV fluids. He does appear dehydrated. With a lactic acid of 4.7, and no obvious evidence of infection, I do think the safest approach is to hospitalize him overnight for observation and continued IV fluids with a repeat lactic acid. Cultures were sent. Treatment Plan: Admit to PCU. Disposition: Admit to PCU Impression: Initial encounter acute hypotension of uncertain etiology, lactic acidosis, dehydration This note was generated with [employer] dictation software. It may contain incorrect words, spelling, and punctuation that were not noted in review of the chart prior to signing ED Disposition - Plan for ED Patient: Chief Complaint: Alt LOC Referrals: Kelvin Trammell MD [Primary Care Provider] - What to do if you have Problems For any increased pain, shortness of breath, bleeding, nausea or vomiting, chest pain, or any unexpected problems, contact your Primary Care Provider. Call [facility] ([phone]) or report to the closest Emergency Room. Call 911 if necessary. 09/23/17 7290 <Electronically signed by Lux Valadez MD> Date Lux Valadez MD Cosigner Signature (If Indicated): Date CC: Kelvin Trammell MD URINALYSIS, COMPLETE Collected: 09/23/2017 Status: F Source: [place] 1:05 PM [facility] REPOSITORY Order Comment: Order Date: 09/23/17 How was Urine Obtained? TRANSPORTATION ENGINEER TO SPECIFY TYPE CODE TESTS RESULT OUT OF RANGE REFERENCE UNITS LAB L400.3000 Yellow COLOR Normal Yellow LAB L400.3050 Clear Normal CLARITY Clear LAB L400.3200 Normal mg/dl Normal GLUCOSE, UR Normal LAB L400.3300 Negative mg/dL Normal BILIRUBIN URINE Negative LAB L400.3400 Negative mg/dl High 5 KETONE UR LAB L400.3465 1.002-1.030 Normal SP.GR. DIPSTX 1.010 LAB L400.3550 5.0 - 8.0 pH UR Normal 5.0 LAB L400.3600 Negative mg/dl High PROT 30 DIPSTX LAB L400.3700 Normal mg/dl Normal UROBILI Normal LAB L400.3750 Negative Normal NITRITE UR Negative LAB L400.3780 Negative /ul Normal OCCULT BLOOD-UR Negative LAB L400.3800 Negative /ul LEUK Normal ESTERASE Negative LAB L400.4050 0-5 /hpf WBC Normal 0-5 SEEN LAB L400.4100 0-5 /hpf 0 Normal RBC-UA SEEN LAB L400.4150 0-5 /hpf SQUAM Normal EPI 0-5 SEEN LAB L400.4300 None Seen /hpf 0 Normal BACTERIA SEEN LAB L400.4350 <or=2+ /hpf 1+ Normal MUCUS, URINE LAB L400.4400 0-5 /lpf Normal HYALINE CAST 0-5 SEEN Performed By: #### L400.0001 #### [facility] [address] [place], [address] Observed: 09/23/2017 Status: F Source: [facility] CULTURE, URINE 1:05 PM [facility] REPOSITORY Order Date: 09/23/17 Urine Culture Culture exhibits no growth. Performed By: #### M100.0650 #### [facility] [address] [place], [address] Observed: 09/23/2017 Status: F Source: ABIEL CULTURE, BLOOD (WB) 11:50 AM [facility] REPOSITORY BC No growth in 5 days. Performed By: #### M200.1000 #### [facility] [address] [place], [address] LACTIC ACID Collected: 09/23/2017 Status: F Source: ABIEL 11:32 AM [facility] REPOSIT[facility] Order Comment: Yes/No query for Sepsis Lactate Rule Y TYPE CODE TESTS RESULT OUT OF REFERENCE UNITS RANGE LAB L503.6005 0.4-2.0 mmol/L High alert LACTIC ACID 4.7 Result Comment: Critical Result(s) Called at: 12:34:07 09/23/2017 by: Anyi Newby to Isela Remy RN (ER). Performed By: #### L503.6005 #### [facility] [address] [place], [address] Observed: 09/23/2017 Status: F Source: ABIEL CULTURE, BLOOD (WB) 11:32 AM [facility] REPOSITORY BC No growth in 5 days. Performed By: #### M200.1000 #### [facility] [address] [place], [address] CHEST 1 VIEW Observed: 09/23/2017 Status: F Source: ABIEL (PORTABLE) 11:22 AM [facility] REPOSIT[facility] [address] [place] [address] Chest 1 View (Portable) MR#: [id number] Acct: [id number] Name: Galo Renteria Rep #: [id number] : [id number] M [id number] From: Jose Vincent MD PCP: Kelvin Trammell MD Status: REG ER Study: Chest 1 View (Portable) Date of Exam: 09/23/17 Exam# [id number] Ordering Dr: Lux Valadez MD STUDY: X-RAY CHEST REASON FOR EXAM: Male, 77 years old. PT BROUGHT IN BY EMS FROM [facility] FOR DECREASED LOC. PER [facility] PT WAS NORMAL AT 0910 TODAY AND THEN BECAME LETHARGIC ATOX2 AND HAD A BP OF 59/24. HX DEMENTIA, HTN, COPD TECHNIQUE: Single AP portable view of the chest. COMPARISON: None. FINDINGS: The lungs are clear and expanded. There is no demonstrated pleural abnormality. Normal size heart. Normal mediastinum and caitie. Normal visualized pulmonary arteries. There is atherosclerotic tortuosity of the aortic arch and descending thoracic aorta. There are diffuse degenerative changes of the visualized thoracic spine. There is degenerative osteoarthritis of the bilateral shoulders. There is no demonstrated abnormality of the visualized soft tissue structures of the upper abdomen. RAD/Chest 1 View (Portable) IMPRESSION: Degenerative changes, as described above. No demonstrated acute cardiopulmonary process. 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 CBC W/DIFF, AUTOMATED Collected: 09/23/2017 Status: F Source: ABIEL 11:20 AM [facility] REPOSIT[facility] TYPE CODE TESTS RESULT OUT OF RANGE REFERENCE UNITS LAB L100.1000 4.4-11.0 K/mm3 Normal WBC 7.4 LAB L100.1200 4.6-6.2 M/mm3 Low RBC 3.57 LAB L100.1300 13.0-16.5 g/dl Low HGB 10.8 LAB L100.1400 40-54 % Low HCT 33.1 LAB L100.1500 80-94 fL Normal MCV 92.7 LAB L100.1600 27.0-32.0 pg Normal MCH 30.3 LAB L100.1700 32-36 g/gl Normal MCHC 32.6 LAB L100.1810 11.6-14.6 % Normal RDW CV 13.7 LAB L100.1820 35.1-43.9 fl High RDW SD 46.0 LAB L100.1900 150-450 K/mm3 Normal PLT 176 LAB L100.2000 6.2-12.0 fl Normal MPV 11.3 LAB L100.2100 47-70 % High NEUT% 77.4 LAB L100.2200 19-41 % Low LY% 14.9 LAB L100.2300 0-10 % Normal MONO% 6.9 LAB L100.2400 0-5 % Normal EO% 0.4 LAB L100.2500 0-1 % Normal BASO% 0.3 LAB L100.2550 0.0-0.9 % Normal IM GRAN % 0.100 Result Comment: IG% - Immature Granulocytes (promyelocytes, myelocytes and metamyelocytes) > 1% indicates that a LEFT SHIFT is Present. LAB L100.2620 2.0-7.7 X10 3/uL Normal Absolute Neut 5.7 LAB L100.2720 0.83-4.51 X10 3/ul Normal Absolute Lymph 1.10 Performed By: #### L100.0100 #### [facility] [address] [place], [address] COMPREHENSIVE METABOLIC Collected: 09/23/2017 Status: F Source: [facility] 11:20 AM [facility]POS[facility] TYPE CODE TESTS RESULT OUT OF RANGE REFERENCE UNITS LAB L501.0100 74-106 mg/dL High GLU 160 Result Comment: Fasting Glucose result greater than or equal to 126 mg/dL suggests DIABETES MELLITUS per A.D.A. criteria. Please note revised GLUCOSE reference range effective 2017. LAB L501.1000 7-18 mg/dL High BUN 19 LAB L501.1100 0.70-1.30 mg/dL Normal CREAT,SERUM 1.13 Result Comment: The validity of the calculated GFR AND GFRAA in patients over 70 years has not been determined. Clinical correlation is essential. LAB L501.1110 >60 mL/min Normal EST GFR 67 Result Comment: Non- GFR Calc LAB L501.1115 >60 mL/min Normal EST GFR - AA 81 Result Comment: GFR Calc LAB L501.1255 ml/min Normal Estimated CRCL 57.42 LAB L501.1300 10-20 RATIO Normal BUN/CRE 16.8 LAB L501.1500 6.4-8. g/dL Normal 2 T PROT 6.4 LAB L501.1800 3.2-5. g/dL Normal 0 ALB 3.4 LAB L501.1950 2.2-4. g/dL Normal 2 GLOB 3.0 LAB L501.2000 0.9-2. RATIO Normal 4 A/G 1.1 LAB L501.2200 8.5-10 mg/dL Low .1 CA 8.4 LAB L501.4100 15-37 U/L Low AST 12 LAB L501.4305 45-117 U/L Normal ALK P 86 LAB L501.4405 16-61 U/L Low ALT 13 LAB L501.4600 0.20-1 mg/dL Normal .00 T BILI 0.20 LAB L501.5300 136-14 mmol/L Normal 5 NA 138 LAB L501.5600 3.5-5. mmol/L High 1 K 5.5 LAB L501.5900 98-107 mmol/L Normal CL 103 LAB L501.6100 21.0-3 mmol/L Normal 2.0 CO2 25.0 LAB L501.6200 5-15 Normal GAP 10 Performed By: #### L500.4050, L501.4010 #### [facility] [address] [facility] [place], [place], [address] TROPONIN-I Collected: 09/23/2017 Status: F Source: [place] 11:20 AM [facility] REPOSIT[facility] TYPE CODE TESTS RESULT OUT OF RANGE REFERENCE UNITS LAB L501.4010 <0.045 ng/mL Normal < 0.015 TROPONIN-I Result Comment: TROPONIN-I EXPECTED VALUES <0.045 Negative 0.045 - 0.590 Consistent with Cardiac Damage > OR = 0.600 Critical Value Not every elevated troponin is indicative of [place]. These values should be used with clinical judgement in examining the patient's clinical picture for diagnosis. To establish a diagnosis of AZ versus myocardial injury, there must be a demonstrated rise and/or fall in the troponin values, in addition to ischemic symptoms, EKG changes, new regional wall motion abnormality, and/or angiographical evidence. PLEASE NOTE: REFERENCE RANGES EDITED 17 Performed By: #### L500.4050, L501.4010 #### [facility] [address] [place], [address] PROTHROMBIN TIME W/INR Collected: 09/23/2017 Status: F Source: [facility] 11:20 AM [facility] REPOSIT[facility] TYPE CODE TESTS RESULT OUT OF RANGE REFERENCE UNITS LAB L300.4150 11.7-14.9 SECONDS Normal PROTIME 13.7 LAB L300.4200 Normal INR 1.1 Performed By: #### L300.3900, L300.4310 #### [facility] [address] [place], [address] PARTIAL THROMBOPLAST Collected: 09/23/2017 Status: F Source: [facility] TIME 11:20 AM [facility] REPOSITORY TYPE CODE TESTS RESULT OUT OF RANGE REFERENCE UNITS LAB L300.4310 24.1-36.2 Seconds Normal PTT 25.8 Performed By: #### L300.3900, L300.4310 #### [facility] [address] [place], [address] BASIC METABOLIC Collected: 09/14/2017 Status: F Source: [facility] PROFILE (BMP) 7:31 AM [facility] REPOSIT[facility] Order Comment: RESULT(S) PREVIOUSLY REPORTED ON MANUAL REQUISITION DURING DOWNTIME. TYPE CODE TESTS RESULT OUT OF RANGE REFERENCE UNITS LAB L501.0100 74-106 mg/dL High GLU 117 Result Comment: Fasting Glucose result from 100 to 125 mg/dL suggests IMPAIRED HOMEOSTASIS per A.D.A. criteria. Please note revised GLUCOSE reference range effective 2017. LAB L501.1000 7-18 mg/dL High BUN 20 LAB L501.1100 0.70-1.30 mg/dL Normal CREAT,SERUM 0.85 Result Comment: The validity of the calculated GFR AND GFRAA in patients over 70 years has not been determined. Clinical correlation is essential. LAB L501.1110 >60 mL/min Normal EST GFR 93 LAB L501.1115 >60 mL/min Normal EST GFR - AA 113 LAB L501.1300 10-20 RATIO High BUN/CRE 23.5 LAB L501.2200 8.5-10.1 mg/dL Normal CA 8.6 LAB L501.5300 136-145 mmol/L Normal NA 144 LAB L501.5600 3.5-5.1 mmol/L Normal K 4.6 LAB L501.5900 98-107 mmol/L Normal CL 107 LAB L501.6100 21.0-32.0 mmol/L Normal CO2 29.0 LAB L501.6200 5-15 Normal GAP 8 Performed By: #### L500.2500 #### [facility] [address], [place], [id number] CBC-COMPLETE BLOOD CNT Collected: 09/14/2017 Status: F Source: [facility] NO DIFF 7:31 AM [facility] REPOSIT[facility] Order Comment: RESULT(S) PREVIOUSLY REPORTED ON MANUAL REQUISITION DURING DOWNTIME. TYPE CODE TESTS RESULT OUT OF RANGE REFERENCE UNITS LAB L100.1000 4.4-11.0 K/mm3 Normal WBC 6.2 LAB L100.1200 4.6-6.2 M/mm3 Low RBC 3.40 LAB L100.1300 13.0-16.5 g/dl Low HGB 10.2 LAB L100.1400 40-54 % Low HCT 31.7 LAB L100.1500 80-94 fL High MCV 94.6 LAB L100.1600 27.0-32.0 pg Normal MCH 30.4 LAB L100.1700 32-36 g/gl Normal MCHC 32.2 LAB L100.1810 11.6-14.6 % Normal RDW CV 13.4 LAB L100.1820 35.1-43.9 fl High RDW SD 44.2 LAB L100.1900 150-450 K/mm3 Normal PLT 177 LAB L100.2000 6.2-12.0 fl High MPV 12.2 Performed By: #### L100.0500 #### [facility] [address], [place], [id number] CBC-COMPLETE BLOOD CNT Collected: 09/01/2017 Status: F Source: [facility] NO DIFF 5:20 AM [facility] REPOSIT[facility] Order Comment: ROOM 121 TYPE CODE TESTS RESULT OUT OF RANGE REFERENCE UNITS LAB L100.1000 4.4-11.0 K/mm3 Normal WBC 7.0 LAB L100.1200 4.6-6.2 M/mm3 Low RBC 3.43 LAB L100.1300 13.0-16.5 g/dl Low HGB 10.6 LAB L100.1400 40-54 % Low HCT 32.2 LAB L100.1500 80-94 fL Normal MCV 93.9 LAB L100.1600 27.0-32.0 pg Normal MCH 30.9 LAB L100.1700 32-36 g/gl Normal MCHC 32.9 LAB L100.1810 11.6-14.6 % Normal RDW CV 13.2 LAB L100.1820 35.1-43.9 fl Normal RDW SD 43.9 LAB L100.1900 150-450 K/mm3 Normal PLT 171 LAB L100.2000 6.2-12.0 fl Normal MPV 12.0 Performed By: #### L100.0500 #### [facility] [address] [place], [place], [address] PHENOBARBITAL Collected: 09/01/2017 Status: F Source: [place] 5:20 AM [facility] REPOSIT[facility] Order Comment: ROOM 121 TYPE CODE TESTS RESULT OUT OF REFERENCE UNITS RANGE LAB L501.8500 10.0-40.0 ug/mL Low PHENOBARB 4.0 Performed By: #### L501.8500 #### [facility] [address] [facility] [place], [address] MYSOLINE (PRIMIDONE) Collected: 09/01/2017 Status: F Source: [facility] 5:20 AM [facility] REPOSIT[facility] Order Comment: ROOM 121 TYPE CODE TESTS RESULT OUT OF RANGE REFERENCE UNITS LAB L3400.2220 5.0-12.0 ug/mL Low 4.1 PRIMIDONE,SE RUM Result Comment: Detection Limit = 0.3 <0.3 indicates None Detected LAB L3400.2240 15-40 ug/mL PHENOBARB,SERUM Low 4 Result Comment: Detection Limit = 3 Performed at: - [facility] [address] [id number] Barrel Roller: Zacarias Mcginnis MD, Phone: [phone] Performed By: #### L3400.2205 #### [facility] (refer to report for specific site) refer to report for address and phone number CBC-COMPLETE BLOOD CNT Collected: 08/14/2017 Status: F Source: [facility] NO DIFF 5:20 AM [facility] REPOSIT[facility] Order Comment: ROOM 121 TYPE CODE TESTS RESULT OUT OF RANGE REFERENCE UNITS LAB L100.1000 4.4-11.0 K/mm3 Normal WBC 10.5 LAB L100.1200 4.6-6.2 M/mm3 Low RBC 3.17 LAB L100.1300 13.0-16.5 g/dl Low HGB 9.9 LAB L100.1400 40-54 % Low HCT 30.6 LAB L100.1500 80-94 fL High MCV 96.5 LAB L100.1600 27.0-32.0 pg Normal MCH 31.2 LAB L100.1700 32-36 g/gl Normal MCHC 32.4 LAB L100.1810 11.6-14.6 % Normal RDW CV 13.3 LAB L100.1820 35.1-43.9 fl Normal RDW SD 43.9 LAB L100.1900 150-450 K/mm3 Normal PLT 308 LAB L100.2000 6.2-12.0 fl Normal MPV 11.6 Performed By: #### L100.0500 #### [facility] [address] [place], [address] BASIC METABOLIC Collected: 08/14/2017 Status: F Source: [place] PROFILE (BMP) 5:20 AM [facility] REPOSIT[facility] Order Comment: ROOM 121 TYPE CODE TESTS RESULT OUT OF RANGE REFERENCE UNITS LAB L501.0100 74-106 mg/dL High GLU 125 Result Comment: Fasting Glucose result from 100 to 125 mg/dL suggests IMPAIRED HOMEOSTASIS per A.D.A. criteria. Please note revised GLUCOSE reference range effective 2017. LAB L501.1000 7-18 mg/dL Normal BUN 18 LAB L501.1100 0.70-1.30 mg/dL Normal CREAT,SERUM 1.02 Result Comment: The validity of the calculated GFR AND GFRAA in patients over 70 years has not been determined. Clinical correlation is essential. LAB L501.1110 >60 mL/min Normal EST GFR 75 Result Comment: Non- GFR Calc LAB L501.1115 >60 mL/min Normal EST GFR - AA 91 Result Comment: GFR Calc LAB L501.1300 10-20 RATIO Normal BUN/CRE 17.6 LAB L501.2200 8.5-10.1 mg/dL CA Normal 8.9 LAB L501.5300 136-145 mmol/L NA Normal 140 LAB L501.5600 3.5-5.1 mmol/L High K 5.9 LAB L501.5900 98-107 mmol/L CL Normal 103 LAB L501.6100 21.0-32.0 mmol/L Normal CO2 30.0 LAB L501.6200 5-15 Normal GAP 7 Performed By: #### L500.2500 #### [facility] [address] [place], [place], [address] PHENOBARBITAL Collected: 08/04/2017 Status: F Source: [place] 5:35 AM [facility] REPOSIT[facility] Order Comment: 121-1 TYPE CODE TESTS RESULT OUT OF REFERENCE UNITS RANGE LAB L501.8500 10.0-40.0 ug/mL Low PHENOBARB 3.2 Performed By: #### L501.8500 #### [facility] [address] [place], [place], [address] KEPPRA (LEVETIRACETAM) Collected: 08/04/2017 Status: F Source: [place] 5:35 AM [facility] REPOSIT[facility] Order Comment: 121-1 TYPE CODE TESTS RESULT OUT OF RANGE REFERENCE UNITS LAB L3310.0000 10.0-40.0 ug/mL Normal KEPPRA 25.0 Result Comment: Performed at: [address] [id number] Barrel Roller: Zacarias Mcginnis MD, Phone: [phone] Performed By: #### L3310.0000, L3400.2205 #### [facility] (refer to report for specific site) refer to report for address and phone number MYSOLINE (PRIMIDONE) Collected: 08/04/2017 Status: F Source: [place] 5:35 AM [facility] REPOSIT[facility] Order Comment: 121-1 TYPE CODE TESTS RESULT OUT OF RANGE REFERENCE UNITS LAB L3400.2220 5.0-12.0 ug/mL Low 4.0 PRIMIDONE,SE RUM Result Comment: Detection Limit = 0.3 <0.3 indicates None Detected LAB L3400.2240 Normal PHENOBARB,SERUM Result Comment: NONE DETECTED ug/mL ref interval: 15 - 40 Detection Limit = 3 Performed By: #### L3310.0000, L3400.2205 #### [facility] (refer to report for specific site) refer to report for address and phone number CBC-COMPLETE BLOOD CNT Collected: 07/31/2017 Status: F Source: [facility] NO DIFF 6:15 AM [facility] REPOSIT[facility] TYPE CODE TESTS RESULT OUT OF RANGE REFERENCE UNITS LAB L100.1000 4.4-11.0 K/mm3 Normal WBC 8.1 LAB L100.1200 4.6-6.2 M/mm3 Low RBC 3.05 LAB L100.1300 13.0-16.5 g/dl Low HGB 9.5 LAB L100.1400 40-54 % Low HCT 28.7 LAB L100.1500 80-94 fL High MCV 94.1 LAB L100.1600 27.0-32.0 pg Normal MCH 31.1 LAB L100.1700 32-36 g/gl Normal MCHC 33.1 LAB L100.1810 11.6-14.6 % Normal RDW CV 12.8 LAB L100.1820 35.1-43.9 fl Normal RDW SD 42.5 LAB L100.1900 150-450 K/mm3 Normal PLT 199 LAB L100.2000 6.2-12.0 fl Normal MPV 11.7 Performed By: #### L100.0500 #### [facility] [address] [place], [place], [address] BASIC METABOLIC Collected: 07/31/2017 Status: F Source: [facility] PROFILE (BMP) 6:15 AM [facility] REPOSITORY TYPE CODE TESTS RESULT OUT OF RANGE REFERENCE UNITS LAB L501.0100 74-106 mg/dL High GLU 153 Result Comment: Fasting Glucose result greater than or equal to 126 mg/dL suggests DIABETES MELLITUS per A.D.A. criteria. Please note revised GLUCOSE reference range effective 2017. LAB L501.1000 7-18 mg/dL High BUN 24 LAB L501.1100 0.70-1.30 mg/dL Normal CREAT,SERUM 0.90 Result Comment: The validity of the calculated GFR AND GFRAA in patients over 70 years has not been determined. Clinical correlation is essential. LAB L501.1110 >60 mL/min Normal EST GFR 87 Result Comment: Non- GFR Calc LAB L501.1115 >60 mL/min Normal EST GFR - AA 105 Result Comment: GFR Calc LAB L501.1300 10-20 RATIO High BUN/CRE 26.6 LAB L501.2200 8.5-10.1 mg/dL Low CA 8.4 LAB L501.5300 136-145 mmol/L NA Normal 143 LAB L501.5600 3.5-5.1 mmol/L K Normal 4.1 LAB L501.5900 98-107 mmol/L High CL 109 LAB L501.6100 21.0-32.0 mmol/L Normal CO2 24.0 LAB L501.6200 5-15 Normal GAP 10 Performed By: #### L500.2500 #### [facility] [address] [facility] [place], [place], [id number] CBC-COMPLETE BLOOD CNT Collected: 07/30/2017 Status: F Source: [facility] NO DIFF 5:25 AM [facility] REPOS[facility] Order Comment: ROOM 121-1 TYPE CODE TESTS RESULT OUT OF RANGE REFERENCE UNITS LAB L100.1000 4.4-11.0 K/mm3 Normal WBC 8.8 LAB L100.1200 4.6-6.2 M/mm3 Low RBC 2.99 LAB L100.1300 13.0-16.5 g/dl Low HGB 9.2 LAB L100.1400 40-54 % Low HCT 27.9 LAB L100.1500 80-94 fL Normal MCV 93.3 LAB L100.1600 27.0-32.0 pg Normal MCH 30.8 LAB L100.1700 32-36 g/gl Normal MCHC 33.0 LAB L100.1810 11.6-14.6 % Normal RDW CV 13.3 LAB L100.1820 35.1-43.9 fl High RDW SD 45.3 LAB L100.1900 150-450 K/mm3 Normal PLT 176 LAB L100.2000 6.2-12.0 fl Normal MPV 11.6 Performed By: #### L100.0500 #### [facility] [address] [facility] [place], [place], [id number] BASIC METABOLIC Collected: 07/30/2017 Status: F Source: [facility] PROFILE (BMP) 5:25 AM [facility] REPOS[facility] Order Comment: ROOM 121-1 TYPE CODE TESTS RESULT OUT OF RANGE REFERENCE UNITS LAB L501.0100 74-106 mg/dL High GLU 145 Result Comment: Fasting Glucose result greater than or equal to 126 mg/dL suggests DIABETES MELLITUS per A.D.A. criteria. Please note revised GLUCOSE reference range effective 2017. LAB L501.1000 7-18 mg/dL High BUN 19 LAB L501.1100 0.70-1.30 mg/dL Normal CREAT,SERUM 0.88 Result Comment: The validity of the calculated GFR AND GFRAA in patients over 70 years has not been determined. Clinical correlation is essential. LAB L501.1110 >60 mL/min Normal EST GFR 90 Result Comment: Non- GFR Calc LAB L501.1115 >60 mL/min Normal EST GFR - AA 109 Result Comment: GFR Calc LAB L501.1300 10-20 RATIO High BUN/CRE 21.7 LAB L501.2200 8.5-10.1 mg/dL Low CA 8.4 LAB L501.5300 136-145 mmol/L NA Normal 144 LAB L501.5600 3.5-5.1 mmol/L K Normal 4.5 LAB L501.5900 98-107 mmol/L High CL 109 LAB L501.6100 21.0-32.0 mmol/L Normal CO2 26.0 LAB L501.6200 5-15 Normal GAP 9 Performed By: #### L500.2500 #### [facility] [address] [place], [address] CBC Collected: 07/28/2017 Status: F Source: [facility] 5:05 AM [facility] RE[facility] TYPE CODE TESTS RESULT OUT OF REFERENCE UNITS RANGE LAB WBC(LOINC) 4.60-10.80 10 3/mcL WBC 10.10 LAB RBCCT(LOINC 4.04-6.13 10 6/mcL ) Low RBC 3.05 LAB HGB(LOINC) 14.0-18.0 G/dL Low Hgb 9.7 LAB HCT(LOINC) 42.0-52.0 % Low Hct 28.1 LAB MCV(LOINC) 80.0-94.0 fL MCV 92.2 LAB MCH(LOINC) 27.0-31.2 pg High MCH 31.7 LAB MCHC(LOINC) 31.8-35.4 G/dL MCHC 34.4 LAB RDW(LOINC) 11.5-14.5 % RDW 13.6 LAB PLT(LOINC) 130-400 10 3/mcL Platelet 142 LAB MPV(LOINC) 7.4-10.4 fL MPV 10.1 Performed By: #### CBC, ADIFF, ANEU, BMP, GFR #### [address] [address] .AUTO DIFF Collected: 07/28/2017 Status: F Source: [facility] 5:05 AM [facility] [place] REPOSITORY TYPE CODE TESTS RESULT OUT OF REFERENCE UNITS RANGE LAB ROBERTO(LOINC) 37.0-80.0 % Neutrophil % 75.9 LAB LYM(LOINC) 10.0-50.0 % Low Lymphocyte % 8.9 LAB MON(LOINC) 1.7-13.0 % Monocyte High % 13.9 LAB EO(LOINC) 0.0-7.0 % Eosinophil % 1.0 LAB BAS(LOINC) 0.0-2.5 % Basophil % 0.3 LAB ABLYM(LOIN 0.77-3.85 10 3/mcL C) Lymphocyte, 0.90 Absolute LAB LAWANDA(LOINC 0.15-1.00 10 3/mcL ) High Monocyte, 1.40 Absolute LAB AEOS(LOINC 0.00-0.40 10 3/mcL ) Eosinophil, 0.10 Absolute LAB ABAS(LOINC 0.00-0.19 10 3/mcL ) Basophil, 0.00 Absolute Performed By: #### CBC, ADIFF, ANEU, BMP, GFR #### [address] [address] .NEUABS Collected: 07/28/2017 Status: F Source: [facility] 5:05 AM [facility] [place] REPOSITORY TYPE CODE TESTS RESULT OUT OF REFERENCE UNITS RANGE LAB ANEU(LOINC) 2.85-6.16 10 3/mcL High Neutrophil, 7.60 Absolute Performed By: #### CBC, ADIFF, ANEU, BMP, GFR #### [address] [address] BMP Collected: 07/28/2017 Status: F Source: [facility] 5:05 AM [facility] [place] REPOSITORY TYPE CODE TESTS RESULT OUT OF REFERENCE UNITS RANGE LAB 1547-9 83-110 mg/dL GLUCOSE High 144 LAB NA(LOINC) 136-146 mEq/L Sodium Level 138 LAB K(LOINC) 3.5-5.1 mEq/L Potassium Level 4.3 LAB CL(LOINC) 98-107 mEq/L Chloride High 109 LAB CO2(LOINC) 23-31 mEq/L Low CO2 21 LAB EBAL(LOINC mEq/L ) Electrolyte Balance 8.0 LAB BUN(LOINC) 7.0-18.0 mg/dL BUN 13.7 LAB CRE(LOINC) 0.6-1.2 mg/dL Creatinine Lvl (s) 1.0 LAB BC(LOINC) 7-27 ratio BUN/Creatinine 14 Ratio LAB CA(LOINC) 8.4-10.2 mg/dL Low Calcium Lvl 7.9 Performed By: #### CBC, ADIFF, ANEU, BMP, GFR #### [place] [address] .GFR Collected: 07/28/2017 Status: F Source: [facility] [employer] [employer] 5:05 AM [facility] REPOSITORY TYPE CODE TESTS RESULT OUT OF REFERENCE UNITS RANGE LAB GFRAA(LOINC ml/min/1.73 ) sqm GFR 91 [place] Result Comment: GFR Population mean for , Non- Americans Ages 20-29 = 116 mL/min/1.73 sq.m. Ages 30-39 = 107 mL/min/1.73 sq.m. Ages 40-49 = 99 mL/min/1.73 sq.m. Ages 50-59 = 93 mL/min/1.73 sq.m. Ages 60-69 = 85 mL/min/1.73 sq.m. Ages 70+ = 75 mL/min/1.73 sq.m. Chronic Kidney Disease: Less than 60 mL/min/1.73 square meters End Stage Renal Disease: Less than 15 mL/min/1.73 square meters LAB GFRNO(LOINC) ml/min/1.73sqm GFR Non- >60 Result Comment: GFR Population mean for , Non- Americans Ages 20-29 = 116 mL/min/1.73 sq.m. Ages 30-39 = 107 mL/min/1.73 sq.m. Ages 40-49 = 99 mL/min/1.73 sq.m. Ages 50-59 = 93 mL/min/1.73 sq.m. Ages 60-69 = 85 mL/min/1.73 sq.m. Ages 70+ = 75 mL/min/1.73 sq.m. Chronic Kidney Disease: Less than 60 mL/min/1.73 square meters End Stage Renal Disease: Less than 15 mL/min/1.73 square meters Performed By: #### CBC, ADIFF, ANEU, BMP, GFR #### [place] [address] [place], [place] [address] CBC Collected: 07/27/2017 Status: F Source: [facility] 5:11 AM [facility] [place] REPOSITORY TYPE CODE TESTS RESULT OUT OF REFERENCE UNITS RANGE LAB WBC(LOINC) 4.60-10.80 10 3/mcL WBC 10.50 LAB RBCCT(LOINC 4.04-6.13 10 6/mcL ) Low RBC 3.29 LAB HGB(LOINC) 14.0-18.0 G/dL Low Hgb 10.5 LAB HCT(LOINC) 42.0-52.0 % Low Hct 30.7 LAB MCV(LOINC) 80.0-94.0 fL MCV 93.2 LAB MCH(LOINC) 27.0-31.2 pg High MCH 31.8 LAB MCHC(LOINC) 31.8-35.4 G/dL MCHC 34.1 LAB RDW(LOINC) 11.5-14.5 % RDW 13.7 LAB PLT(LOINC) 130-400 10 3/mcL Platelet 140 LAB MPV(LOINC) 7.4-10.4 fL MPV 9.8 Performed By: #### CBC, ADIFF, ANEU, BMP, GFR #### [id number] [place], [place] [address] .AUTO DIFF Collected: 07/27/2017 Status: F Source: [facility] 5:11 AM [facility], [place] REPOSITORY TYPE CODE TESTS RESULT OUT OF REFERENCE UNITS RANGE LAB ROBERTO(LOINC) 37.0-80.0 % High Neutrophil % 80.3 LAB LYM(LOINC) 10.0-50.0 % Low Lymphocyte % 7.9 LAB MON(LOINC) 1.7-13.0 % Monocyte % 10.2 LAB EO(LOINC) 0.0-7.0 % Eosinophil % 1.3 LAB BAS(LOINC) 0.0-2.5 % Basophil % 0.3 LAB ABLYM(LOIN 0.77-3.85 10 3/mcL C) Lymphocyte, 0.80 Absolute LAB LAWANDA(LOINC 0.15-1.00 10 3/mcL ) High Monocyte, 1.10 Absolute LAB AEOS(LOINC 0.00-0.40 10 3/mcL ) Eosinophil, 0.10 Absolute LAB ABAS(LOINC 0.00-0.19 10 3/mcL ) Basophil, 0.00 Absolute Performed By: #### CBC, ADIFF, ANEU, BMP, GFR #### [address] [id number] .NEUABS Collected: 07/27/2017 Status: F Source: [facility] 5:11 AM [facility], [place] REPOSITORY TYPE CODE TESTS RESULT OUT OF REFERENCE UNITS RANGE LAB ANEU(LOINC) 2.85-6.16 10 3/mcL High Neutrophil, 8.50 Absolute Performed By: #### CBC, ADIFF, ANEU, BMP, GFR #### [place] [id number] BMP Collected: 07/27/2017 Status: F Source: [facility] 5:11 AM [facility] [place] REPOSITORY TYPE CODE TESTS RESULT OUT OF REFERENCE UNITS RANGE LAB 1547-9 83-110 mg/dL GLUCOSE High 127 LAB NA(LOINC) 136-146 mEq/L Sodium Level 138 LAB K(LOINC) 3.5-5.1 mEq/L Potassium Level 4.7 LAB CL(LOINC) 98-107 mEq/L Chloride 106 LAB CO2(LOINC) 23-31 mEq/L CO2 23 LAB EBAL(LOINC mEq/L ) Electrolyte Balance 9.0 LAB BUN(LOINC) 7.0-18.0 mg/dL BUN 16.0 LAB CRE(LOINC) 0.6-1.2 mg/dL Creatinine Lvl (s) 1.2 LAB BC(LOINC) 7-27 ratio BUN/Creatinine 13 Ratio LAB CA(LOINC) 8.4-10.2 mg/dL Low Calcium Lvl 8.1 Performed By: #### CBC, ADIFF, ANEU, BMP, GFR #### [place] [address] .GFR Collected: 07/27/2017 Status: F Source: [employer] 5:11 AM [facility] [place] REPOSITORY TYPE CODE TESTS RESULT OUT OF REFERENCE UNITS RANGE LAB GFRAA(LOINC ml/min/1.73 ) sqm GFR 69 [place] Result Comment: GFR Population mean for , Non- Americans Ages 20-29 = 116 mL/min/1.73 sq.m. Ages 30-39 = 107 mL/min/1.73 sq.m. Ages 40-49 = 99 mL/min/1.73 sq.m. Ages 50-59 = 93 mL/min/1.73 sq.m. Ages 60-69 = 85 mL/min/1.73 sq.m. Ages 70+ = 75 mL/min/1.73 sq.m. Chronic Kidney Disease: Less than 60 mL/min/1.73 square meters End Stage Renal Disease: Less than 15 mL/min/1.73 square meters LAB GFRNO(LOINC) ml/min/1.73sqm GFR Non- 57 Result Comment: GFR Population mean for , Non- Americans Ages 20-29 = 116 mL/min/1.73 sq.m. Ages 30-39 = 107 mL/min/1.73 sq.m. Ages 40-49 = 99 mL/min/1.73 sq.m. Ages 50-59 = 93 mL/min/1.73 sq.m. Ages 60-69 = 85 mL/min/1.73 sq.m. Ages 70+ = 75 mL/min/1.73 sq.m. Chronic Kidney Disease: Less than 60 mL/min/1.73 square meters End Stage Renal Disease: Less than 15 mL/min/1.73 square meters Performed By: #### CBC, ADIFF, ANEU, BMP, GFR #### [facility] [address] [place], [place] [address] XR HIP MINIMUM 2 Observed: 07/26/2017 Status: F Source: [employer] VIEWS RIGHT 10:34 AM [facility] [place] REPOSITORY ORIGINAL XR HIP MINIMUM 2 VIEWS RIGHT portable CLINICAL STATEMENT: Status Post Arthroplasty. COMPARISON: 07/25/2017 FINDINGS: There has been interval RIGHT hip arthroplasty. No acute fracture or dislocation is shown. Gas within the soft tissues and surgical missy overlying the skin are present compatible with recen t surgery. Seen only on the crosstable lateral view, a 4 mm density is seen adjacent to the tip of the intramedullary jani. IMPRESSION: 1. Interval arthroplasty. 2. A 4 mm metallic density adjacent to the tip of the intramedullary jani seen on only one view. Interpreted By: Adilene Steve Preliminary Report By: Adilene Steve Electronically Signed By: Adilene Steve Dictated Date: 07/26/2017 3:39:43 PM Prelim Date: 07/26/2017 3:39:43 PM Sign Date: 07/26/2017 3:41:08 PM FINAL SURGICAL Observed: 07/26/2017 Status: F Source: [facility] PATHOLOGY REPORT 9:23 AM [facility] [place] REPOSITORY . Pathology Reports Accession: Collected Date/Time: Received Date/Time: Pathologist: [id number] 07/26/2017 09:23 EDT 07/28/2017 07:57 EDT MD IRMA ROJAS Final Surgical Pathology Report DIAGNOSIS: RIGHT FEMORAL HEAD, REPLACEMENT: - FEMORAL HEAD WITH FRAGMENTED TRABECULAR BONE AND ASSOCIATED HEMORRHAGE CONSISTENT WITH FRACTURE. - NEGATIVE FOR NEOPLASIA. COMMENT: [facility]# [id number] CLINICAL INFORMATION: Procedure: RIGHT HIP HEMIARTHROPLASTY Preoperative diagnosis: RIGHT HIP FRACTURE Postoperative diagnosis: RIGHT HIP FRACTURE SPECIMEN: A FEM HEAD, FRAC RIGHT FEMORAL HEAD GROSS DESCRIPTION: Received in formalin labeled right femoral head is a 4.4 x 4.4 x 3.8 cm femoral head. The surgical margin is red, irregular and jagged. The articular surface is horn-red and smooth. Sectioning shows yellow trabecular bone with no discreet lesions grossly identified. Also received is a 3 x 3 x 2.8 cm aggregate of bone grossly consistent with femoral neck. A community health representative section is submitted following decalcification in one cassette. Dictated by OLIVIER FOUNTAIN ([facility]) MICROSCOPIC DESCRIPTION: Slides reviewed. Electronically Signed by Pathology Report verified by [facility] Electronically signed by IRMA ROJAS MD Sign out Date: 07/30/2017 14:23 Performing Lab: [address] Performed By: #### SPFR #### [place] [address] CBC Collected: 07/26/2017 Status: F Source: [facility] 6:35 AM [facility] REPOSITORY TYPE CODE TESTS RESULT OUT OF REFERENCE UNITS RANGE LAB WBC(LOINC) 4.60-10.80 10 3/mcL WBC 7.70 LAB RBCCT(LOINC 4.04-6.13 10 6/mcL ) Low RBC 3.60 LAB HGB(LOINC) 14.0-18.0 G/dL Low Hgb 11.4 LAB HCT(LOINC) 42.0-52.0 % Low Hct 32.9 LAB MCV(LOINC) 80.0-94.0 fL MCV 91.4 LAB MCH(LOINC) 27.0-31.2 pg High MCH 31.7 LAB MCHC(LOINC) 31.8-35.4 G/dL MCHC 34.7 LAB RDW(LOINC) 11.5-14.5 % RDW 13.5 LAB PLT(LOINC) 130-400 10 3/mcL Platelet 150 LAB MPV(LOINC) 7.4-10.4 fL MPV 9.9 Performed By: #### CBC, ADIFF, ANEU, BMP, GFR #### [address] [address] .AUTO DIFF Collected: 07/26/2017 Status: F Source: [facility] 6:35 AM [facility] [place] REPOSITORY TYPE CODE TESTS RESULT OUT OF REFERENCE UNITS RANGE LAB ROBERTO(LOINC) 37.0-80.0 % Neutrophil % 68.3 LAB LYM(LOINC) 10.0-50.0 % Lymphocyte % 14.5 LAB MON(LOINC) 1.7-13.0 % Monocyte High % 14.3 LAB EO(LOINC) 0.0-7.0 % Eosinophil % 2.2 LAB BAS(LOINC) 0.0-2.5 % Basophil % 0.7 LAB ABLYM(LOIN 0.77-3.85 10 3/mcL C) Lymphocyte, 1.10 Absolute LAB LAWANDA(LOINC 0.15-1.00 10 3/mcL ) High Monocyte, 1.10 Absolute LAB AEOS(LOINC 0.00-0.40 10 3/mcL ) Eosinophil, 0.20 Absolute LAB ABAS(LOINC 0.00-0.19 10 3/mcL ) Basophil, 0.10 Absolute Performed By: #### CBC, ADIFF, ANEU, BMP, GFR #### [address] [address] .NEUABS Collected: 07/26/2017 Status: F Source: [place] [employer] 6:35 AM [facility] [place] REPOSITORY TYPE CODE TESTS RESULT OUT OF REFERENCE UNITS RANGE LAB ANEU(LOINC) 2.85-6.16 10 3/mcL Neutrophil, 5.30 Absolute Performed By: #### CBC, ADIFF, ANEU, BMP, GFR #### [place] [address] [place], [place] [address] BMP Collected: 07/26/2017 Status: F Source: [place] [employer] 6:35 AM [facility] [place] REPOSITORY TYPE CODE TESTS RESULT OUT OF REFERENCE UNITS RANGE LAB 1547-9 83-110 mg/dL GLUCOSE High 131 LAB NA(LOINC) 136-146 mEq/L Sodium Level 138 LAB K(LOINC) 3.5-5.1 mEq/L Potassium Level 4.7 LAB CL(LOINC) 98-107 mEq/L Chloride 103 LAB CO2(LOINC) 23-31 mEq/L CO2 28 LAB EBAL(LOINC mEq/L ) Electrolyte Balance 7.0 LAB BUN(LOINC) 7.0-18.0 mg/dL BUN 17.4 LAB CRE(LOINC) 0.6-1.2 mg/dL Creatinine Lvl (s) 1.1 LAB BC(LOINC) 7-27 ratio BUN/Creatinine 16 Ratio LAB CA(LOINC) 8.4-10.2 mg/dL Calcium Lvl 8.8 Performed By: #### CBC, ADIFF, ANEU, BMP, GFR #### [place] [address] [place], [place] [address] .GFR Collected: 07/26/2017 Status: F Source: [place] [employer] 6:35 AM [facility] [place] REPOSITORY TYPE CODE TESTS RESULT OUT OF REFERENCE UNITS RANGE LAB GFRAA(LOINC ml/min/1.73 ) sqm GFR 77 [place] Result Comment: GFR Population mean for , Non- Americans Ages 20-29 = 116 mL/min/1.73 sq.m. Ages 30-39 = 107 mL/min/1.73 sq.m. Ages 40-49 = 99 mL/min/1.73 sq.m. Ages 50-59 = 93 mL/min/1.73 sq.m. Ages 60-69 = 85 mL/min/1.73 sq.m. Ages 70+ = 75 mL/min/1.73 sq.m. Chronic Kidney Disease: Less than 60 mL/min/1.73 square meters End Stage Renal Disease: Less than 15 mL/min/1.73 square meters LAB GFRNO(LOINC) ml/min/1.73sqm GFR Non- >60 Result Comment: GFR Population mean for , Non- Americans Ages 20-29 = 116 mL/min/1.73 sq.m. Ages 30-39 = 107 mL/min/1.73 sq.m. Ages 40-49 = 99 mL/min/1.73 sq.m. Ages 50-59 = 93 mL/min/1.73 sq.m. Ages 60-69 = 85 mL/min/1.73 sq.m. Ages 70+ = 75 mL/min/1.73 sq.m. Chronic Kidney Disease: Less than 60 mL/min/1.73 square meters End Stage Renal Disease: Less than 15 mL/min/1.73 square meters Performed By: #### CBC, ADIFF, ANEU, BMP, GFR #### [address] [address] XR CHEST 1 VIEW Observed: 07/25/2017 Status: F Source: [employer] 7:06 PM [facility] [place] REPOSITORY ORIGINAL XR CHEST 1 VIEW Upright portable chest at 7:00 PM CLINICAL STATEMENT: Preoperative evaluation for broken hip, pain, trauma patient COMPARISON: None FINDINGS: Loop recorder device noted over the left hemithorax. The cardiomediastinal silhouette is within normal limits. Lung volumes are low. This likely explains prominence the pulmonary vasculature. No consolidation, pleural effusion, or pneumothorax is seen. Degenerative changes are seen at the acromioclavicular joints. IMPRESSION: Low lung volumes. No acute radiographic findings. I have personally reviewed the images of this examination and agree with the resident's findings and interpretation. Interpreted By: Eddie Melendez MD Preliminary Report By: Roland Chester DO Electronically Signed By: Eddie Melendez MD Dictated Date: 07/25/2017 7:16:31 PM Prelim Date: 07/25/2017 7:18:53 PM Sign Date: 07/25/2017 7:28:27 PM CBC Collected: 07/25/2017 Status: F Source: [employer] 6:05 PM [facility] [place] REPOSITORY TYPE CODE TESTS RESULT OUT OF REFERENCE UNITS RANGE LAB WBC(LOINC) 4.60-10.80 10 3/mcL WBC 8.90 LAB RBCCT(LOINC 4.04-6.13 10 6/mcL ) Low RBC 3.90 LAB HGB(LOINC) 14.0-18.0 G/dL Low Hgb 12.2 LAB HCT(LOINC) 42.0-52.0 % Low Hct 35.8 LAB MCV(LOINC) 80.0-94.0 fL MCV 91.9 LAB MCH(LOINC) 27.0-31.2 pg High MCH 31.4 LAB MCHC(LOINC) 31.8-35.4 G/dL MCHC 34.1 LAB RDW(LOINC) 11.5-14.5 % RDW 13.8 LAB PLT(LOINC) 130-400 10 3/mcL Platelet 162 LAB MPV(LOINC) 7.4-10.4 fL MPV 10.2 Performed By: #### CBC, ADIFF, ANEU, GFR, BMP, ABOG, ANSG #### [address] [address] .AUTO DIFF Collected: 07/25/2017 Status: F Source: [facility] 6:05 [facility] REPOSITORY TYPE CODE TESTS RESULT OUT OF REFERENCE UNITS RANGE LAB ROBERTO(LOINC) 37.0-80.0 % Neutrophil % 79.3 LAB LYM(LOINC) 10.0-50.0 % Low Lymphocyte % 7.9 LAB MON(LOINC) 1.7-13.0 % Monocyte % 11.0 LAB EO(LOINC) 0.0-7.0 % Eosinophil % 1.1 LAB BAS(LOINC) 0.0-2.5 % Basophil % 0.7 LAB ABLYM(LOIN 0.77-3.85 10 3/mcL C) Low Lymphocyte, 0.70 Absolute LAB LAWANDA(LOINC 0.15-1.00 10 3/mcL ) Monocyte, 1.00 Absolute LAB AEOS(LOINC 0.00-0.40 10 3/mcL ) Eosinophil, 0.10 Absolute LAB ABAS(LOINC 0.00-0.19 10 3/mcL ) Basophil, 0.10 Absolute Performed By: #### CBC, ADIFF, ANEU, GFR, BMP, ABOG, ANSG #### [facility] [address] [place], [place] [address] .NEUABS Collected: 07/25/2017 Status: F Source: [facility] 6:05 PM [facility] [place] REPOSITORY TYPE CODE TESTS RESULT OUT OF REFERENCE UNITS RANGE LAB ANEU(LOINC) 2.85-6.16 10 3/mcL High Neutrophil, 7.10 Absolute Performed By: #### CBC, ADIFF, ANEU, GFR, BMP, ABOG, ANSG #### [facility] [address] [place], [place] [address] .GFR Collected: 07/25/2017 Status: F Source: [facility] 6:05 [facility] REPOSITORY TYPE CODE TESTS RESULT OUT OF REFERENCE UNITS RANGE LAB GFRAA(LOINC ml/min/1.73 ) sqm GFR 67 [place] Result Comment: GFR Population mean for , Non- Americans Ages 20-29 = 116 mL/min/1.73 sq.m. Ages 30-39 = 107 mL/min/1.73 sq.m. Ages 40-49 = 99 mL/min/1.73 sq.m. Ages 50-59 = 93 mL/min/1.73 sq.m. Ages 60-69 = 85 mL/min/1.73 sq.m. Ages 70+ = 75 mL/min/1.73 sq.m. Chronic Kidney Disease: Less than 60 mL/min/1.73 square meters End Stage Renal Disease: Less than 15 mL/min/1.73 square meters LAB GFRNO(LOINC) ml/min/1.73sqm GFR Non- 55 Result Comment: GFR Population mean for , Non- Americans Ages 20-29 = 116 mL/min/1.73 sq.m. Ages 30-39 = 107 mL/min/1.73 sq.m. Ages 40-49 = 99 mL/min/1.73 sq.m. Ages 50-59 = 93 mL/min/1.73 sq.m. Ages 60-69 = 85 mL/min/1.73 sq.m. Ages 70+ = 75 mL/min/1.73 sq.m. Chronic Kidney Disease: Less than 60 mL/min/1.73 square meters End Stage Renal Disease: Less than 15 mL/min/1.73 square meters Performed By: #### CBC, ADIFF, ANEU, GFR, BMP, ABOG, ANSG #### [place] [address] [place], [place] [address] BMP Collected: 07/25/2017 Status: F Source: [facility] 6:05 PM [facility] [place] REPOSITORY TYPE CODE TESTS RESULT OUT OF REFERENCE UNITS RANGE LAB 1547-9 83-110 mg/dL GLUCOSE High 125 LAB NA(LOINC) 136-146 mEq/L Sodium Level 138 LAB K(LOINC) 3.5-5.1 mEq/L Potassium High Level 5.3 LAB CL(LOINC) 98-107 mEq/L Chloride 101 LAB CO2(LOINC) 23-31 mEq/L CO2 26 LAB EBAL(LOINC mEq/L ) Electrolyte Balance 11.0 LAB BUN(LOINC) 7.0-18.0 mg/dL BUN High 21.3 LAB CRE(LOINC) 0.6-1.2 mg/dL Creatinine High Lvl (s) 1.3 LAB BC(LOINC) 7-27 ratio BUN/Creatinine 16 Ratio LAB CA(LOINC) 8.4-10.2 mg/dL Calcium Lvl 9.1 Performed By: #### CBC, ADIFF, ANEU, GFR, BMP, ABOG, ANSG #### [address] [address] GEL ABO Collected: 07/25/2017 Status: F Source: [facility] 6:05 [facility] REPOSITORY TYPE CODE TESTS RESULT OUT OF RANGE REFERENCE UNITS LAB ABORH(LOINC ) Unknown ABO/Rh A POS Interp Performed By: #### CBC, ADIFF, ANEU, GFR, BMP, ABOG, ANSG #### [address] [address] GEL ABS Collected: 07/25/2017 Status: F Source: [facility] 6:05 PM [facility] [place] REPOSITORY TYPE CODE TESTS RESULT OUT OF REFERENCE UNITS RANGE LAB ANSG(LOINC ) Antibody Negative ABSC Screen Gel Performed By: #### CBC, ADIFF, ANEU, GFR, BMP, ABOG, ANSG #### [place] [address] [place], [place] [address] XR HIP RIGHT W/PELVIS Observed: 07/25/2017 Status: F Source: [facility] 4 VIEWS 5:17 PM [facility] REPOSITORY ORIGINAL XR HIP RIGHT W/PELVIS 3 VIEWS CLINICAL STATEMENT: Patient fell in parking lot today, right hip pain COMPARISON: None FINDINGS: The pelvic ring is intact. The SI joints and pubic symphysis are not widened. Mild degenerative changes are seen in the lumbar spine. The left hip is intact. There is a transcervical fracture through the right femoral neck, with slight distraction and slight displacement of the distal fragment superiorly. No dislocation identified. IMPRESSION: Transcervical hip fracture on the right. I have personally reviewed the images of this examination and agree with the resident's findings and interpretation. Interpreted By: Eddie Melendez MD Preliminary Report By: Roland Chester DO Electronically Signed By: Eddie Melendez MD Dictated Date: 07/25/2017 5:34:39 PM Prelim Date: 07/25/2017 5:36:40 PM Sign Date: 07/25/2017 5:40:04 PM HEMOGLOBIN A1C Collected: 06/30/2017 Status: F Source: [place] 5:35 AM [facility] REPOSITORY Order Comment: 121-1 TYPE CODE TESTS RESULT OUT OF RANGE REFERENCE UNITS LAB L501.9985 4.2-6.3 % Normal HGB A1C 6.2 Performed By: #### L501.9985 #### [facility] [place], [address] BASIC METABOLIC Collected: 06/30/2017 Status: F Source: [place] PROFILE (BMP) 5:35 AM [facility] REPOSITORY Order Comment: 121-1 TYPE CODE TESTS RESULT OUT OF RANGE REFERENCE UNITS LAB L501.0100 74-106 mg/dL Normal GLU 98 Result Comment: Please note revised GLUCOSE reference range effective 2017. LAB L501.1000 7-18 mg/dL High BUN 21 LAB L501.1100 0.70-1.30 mg/dL Normal CREAT,SERUM 0.96 Result Comment: The validity of the calculated GFR AND GFRAA in patients over 70 years has not been determined. Clinical correlation is essential. LAB L501.1110 >60 mL/min Normal EST GFR 81 Result Comment: Non- GFR Calc LAB L501.1115 >60 mL/min Normal EST GFR - AA 98 Result Comment: GFR Calc LAB L501.1300 10-20 RATIO High BUN/CRE 22.0 LAB L501.2200 8.5-10.1 mg/dL Low CA 8.4 LAB L501.5300 136-145 mmol/L NA Normal 141 LAB L501.5600 3.5-5.1 mmol/L K Normal 4.3 LAB L501.5900 98-107 mmol/L High CL 108 LAB L501.6100 21.0-32.0 mmol/L Normal CO2 25.0 LAB L501.6200 5-15 Normal GAP 8 Performed By: #### L500.2500, L500.3400, L500.4100 #### [facility] [address] [place], [address] LIVER PROFILE Collected: 06/30/2017 Status: F Source: [place] 5:35 [facility] REPOSITORY Order Comment: 121-1 TYPE CODE TESTS RESULT OUT OF RANGE REFERENCE UNITS LAB L501.1500 6.4-8.2 g/dL Low T PROT 6.3 LAB L501.1800 3.2-5.0 g/dL Normal ALB 3.4 LAB L501.1950 2.2-4.2 g/dL Normal GLOB 2.9 LAB L501.4100 15-37 U/L Low AST 14 LAB L501.4305 45-117 U/L Normal ALK P 73 LAB L501.4405 16-61 U/L Normal ALT 16 Result Comment: Please note revised ALT reference range effective 2017. LAB L501.4600 0.20-1.00 mg/dL Normal T BILI 0.30 LAB L501.4700 0.00-0.30 mg/dL Normal D < BILI 0.05 Performed By: #### L500.2500, L500.3400, L500.4100 #### [facility] [address] [facility] [place], [address] LIPID PROFILE Collected: 06/30/2017 Status: F Source: [place] 5:35 AM [facility] REPOSITORY Order Comment: 121-1 TYPE CODE TESTS RESULT OUT OF RANGE REFERENCE UNITS LAB L501.4900 200 mg/dL Normal CHOL 95 Result Comment: <200 mg/dL Desirable 200-240 mg/dL Borderline >240 mg/dL High Risk LAB L501.5000 mg/dL High TRIG 312 Result Comment: The drugs N-Acetylcysteine and Metamizole may falsely depress this assay. Serum Triglycerides Reference Interval Normal <150 mg/dL Borderline high 150 - 199 mg/dL High 200 - 499 mg/dL Very High > or = 500 mg/dL LAB L501.6400 mg/dL Normal HDL 42 Result Comment: The drugs N-Acetylcysteine and Metamizole may falsely depress this assay. Reference Range HDL <40 mg/dL Low HDL Cholesterol HDL >or= 60 mg/dL High HDL Cholesterol LAB L501.6500 0-130 mg/dL Low LDL -9 LAB L501.6600 5-40 mg/dL High VLDL 62 Performed By: #### L500.2500, L500.3400, L500.4100 #### [facility] [address] [place], [address] KEPPRA (LEVETIRACETAM) Collected: 06/30/2017 Status: F Source: [place] 5:35 AM [facility] REPOSITORY Order Comment: 121-1 TYPE CODE TESTS RESULT OUT OF RANGE REFERENCE UNITS LAB L3310.0000 10.0-40.0 ug/mL Normal KEPPRA 20.4 Result Comment: Performed at: - [facility] [id number] [place] Roller: Zacarias Mcginnis MD, Phone: [phone] Performed By: #### L3310.0000 #### [facility] (refer to report for specific site) refer to report for address and phone number ALLERGIES ALLERGIES DATE TYPE / CODE NAME / CODE REACTION SEVERITY SOURCE 09/23/2017 Miscellaneous PPD Other Unknown Abiel Allergy/938142597(S [facility]OM[facility] Hospital Repository 08/31/2015 Drug No Known Unknown Abiel Allergy/918126090(S Allergies/F [facility] NOMED CT) [id number](R Hospital XNORM) Repository ENCOUNTERS ENCOUNTERS ADMIT/DISCHARGE ACCOUNT NUMBER ADMITTING ENCOUNTER LOCATION SOURCE CLASS 04/30/2018 [id number] [facility] ding:[facility] Repository 04/01/2018 [id number] Ambulatory [facility] ding:[facility]S.[facility] Repository 03/02/2018 [id number] [facility] Repository 02/23/2018/02/24/20 [id number] Emergency [place] ding:ED Repository 01/26/2018 [id number] Ambulatory [facility] ding:[facility]S.[facility] Repository 12/29/2017 [id number] Ambulatory [facility] ding:[facility] Repository 11/27/2017 [id number] Ambulatory [facility] ding:[facility]S.[facility] Repository 10/29/2017 [id number] Ambulatory [facility] ding:[facility] Repository 10/08/2017 [id number] Ambulatory [facility] ding:OLS.[facility] Repository 10/05/2017 [id number] Ambulatory [facility] ding:OLS.[facility] Repository 09/23/2017/09/26/19 [id number] [facility], Inpatient [place]iel [facility] ding:PCURoom Repository : [id number]: 1 09/23/2017 [id number] [facility], Ambulatory BMSBuilding: Abiel Ghasem [place] Repository 09/23/2017 [id number] [facility], Ambulatory BMSBuilding: Abiel Ghasem [facility] Repository 09/23/2017 [id number] [facility], Ambulatory BMSBuilding: Abiel Ghasem [place] Repository 09/14/2017 [id number] Ambulatory [facility] ding:OLS.[facility] Repository 09/01/2017 [id number] Ambulatory [facility] Hospital ding:[facility]S.[facility] Repository 08/14/2017 [id number] Ambulatory [facility] Hospital ding:OLS.[facility] Repository 08/04/2017 [id number] Ambulatory [facility] ding:OLS.[facility] Repository 07/31/2017 [id number] [facility] ding:OLS.[facility] Repository 07/30/2017 [id number] [facility] ding:OLS.[facility] Repository 07/25/2017/07/29/19 [id number] BRIAN COLVIN., Inpatient BBuilding:MS Delma Kolb MD. GALO W Encounter URRoom: [address]: A [facility] Repository 06/30/2017 [id number] [facility] ding:OLS.[facility] Repository PAYERS PAYERS ENCOUNTER GUARANTOR PAYER SUBSCRIBER SOURCE 04/30/2018 GALO O [facility]:SELF PAY [address] Number: Effective Repository [place], [place] Date:2018-04-30 [phone]: (EW) 04/01/2018 GALO O Primary GALO O [facility] Insurance:MYCARE CRSC ECONOMYDOB: [facility] CARE [id number] S *IN [facility] [id number] Number: [place]ository [place] [id number] [address]Gke: Date:[id number] CLAIMS DEPTPO BOX (HP) [address] [address]QY: 04/01/2018 Secondary NOT GIVENUNK Abiel Insurance:SELF PAY [facility] Number: Effective Repository Date:2018-04-01 03/02/2018 GALO O Primary GALO O [facility] Insurance:MYCARE [place] EMERGENCY DEPARTMENTDOB: [facility] CARE [id number] S *IN [facility] [id number] Hospital Number: Repository [facility] [id number] [address]Oss: Date:1368-98-35NUIU CLAIMS DEPTPO BOX (HP) [address], [place] [address]PP: 03/02/2018 Secondary NOT GIVENUNK [place] Insurance:SELF PAY [facility] Number: Effective Repository Date:2018-03-02 02/23/2018 GALO O Primary GALO O [facility] Insurance:MYCARE CRSC LAKEDOB: Community CARE [id number] S *IN [facility] [id number] Hospital Number: Repository [place] [id number] [address]Gfg: Date:[id number] CLAIMS DEPTPO BOX (HP) [address] [address]FH: 02/23/2018 Secondary NOT GIVENUNK [place] Insurance:SELF PAY [facility] Number: Effective Repository Date:2018-02-23 01/26/2018 Galo O Primary [facility] Insurance:MYCARE CRSC LakeDOB: Community CARE [id number] S *IN [facility] [id number] Hospital Number: [place]ository [place] [id number] [address]Olf: Date:[id number] CLAIMS DEPTPO BOX (HP) [address] [address]HZ: 01/26/2018 Secondary NOT GIVENUNK [place] Insurance:SELF PAY [facility] Number: Effective Repository Date:2018-01-26 12/29/2017 Galo O Primary [facility] Insurance:MYCARE CRSC LakeDOB: Community CARE [id number] S *IN [facility] [id number] Number: [place] [id number] [id number]: Date:[id number] CLAIMS DEPTPO BOX (HP) [address] [address]DF: 12/29/2017 Secondary NOT GIVENUNK [place] Insurance:SELF PAY [facility] Number: Effective Repository Date:2017-12-29 11/27/2017 [facility] [place] [facility] Insurance:MYCARE CRSC [place]OB: Community CARE [id number] S *IN [facility] [id number] Hospital Number: [place] [id number] [phone]: Date:[id number] CLAIMS DEPTPO BOX (HP) [address] [address]BB: 11/27/2017 Secondary NOT GIVENUNK [place] Insurance:SELF PAY [facility] Number: Effective Repository Date:2017-11-27 10/29/2017 [facility] Insurance:MYCARE CRSC [place]DOB: Community CARE [id number] S *IN [facility] [id number] Hospital Number: [place]ository [place] [id number]: Date:1486-70-84ILFY CLAIMS DEPTPO BOX (HP) [address] [address]KU: 10/29/2017 Secondary NOT GIVENUNK Abiel Insurance:SELF PAY [facility] Number: Effective Repository Date:2017-10-29 10/08/2017 Galo O Primary [facility] Insurance:MYCARE CRSC LakeDOB: Community CARE [id number] S *IN [facility] [id number] Hospital Number: [place] [id number] [address]Vte: Date:3561-37-08AMZH CLAIMS DEPTPO BOX (HP) [address] [address]WR: 10/08/2017 Secondary NOT GIVENUNK [place] Insurance:SELF PAY [facility] Number: Effective Repository Date:2017-10-08 10/05/2017 Galo O Primary [facility] Insurance:MYCARE CRSC LakeDOB: Community CARE [id number] S *IN [facility] [id number] Hospital Number: [place] [id number]: Date:7516-69-80APFL CLAIMS DEPTPO BOX (HP) [address] [address]HJ: 10/05/2017 Secondary NOT GIVENUNK [place] Insurance:SELF PAY [facility] Number: Effective Repository Date:2017-10-05 09/23/2017 AGLO O Primary GALO O [facility] Insurance:MYCARE CRSC LAKEDOB: Community CARE [id number] S *IN [facility] [id number] Hospital Number: [place] [id number]: Date:4445-56-56JVYH CLAIMS DEPTPO BOX (HP) [address] [address]QQ: 09/23/2017 Secondary NOT GIVENUNK [place] Insurance:SELF PAY [facility] Number: Effective Repository Date:2017-09-23 09/23/2017 GALO O Primary GALO O [facility] Insurance:MYCARE CRSC LAKEDOB: Community CARE [id number] S *IN [facility] [id number] Hospital Number: [place] [id number]: Date:5683-42-64IOTA CLAIMS DEPTPO BOX (HP) [address] [address]VJ: 09/23/2017 Secondary NOT GIVENUNK [place] Insurance:SELF PAY [facility] Number: Effective Repository Date:2017-09-23 09/23/2017 GALO O Primary GALO O [facility] Insurance:MYCARE CRSC LAKEDOB: Community CARE [id number] S *IN [facility] [id number] Hospital Number: [place] [id number] [phone]: Date:5415-25-60PEFP CLAIMS DEPTPO BOX (HP) [address] [address]DC: 09/23/2017 Secondary NOT GIVENUNK [place] Insurance:SELF PAY [facility] Number: Effective Repository Date:2017-09-23 09/23/2017 GALO O Primary GALO O [facility] Insurance:MYCARE CRS LAKEDOB: Community CARE [id number] S *IN [facility] [id number] Hospital Number: Repository [place] [id number] [address]Mpt: Date:5272-27-04LHGX CLAIMS DEPTPO BOX (HP) [address] [address]EW: 09/23/2017 Secondary NOT GIVENUNK [place] Insurance:SELF PAY [facility] Number: Effective Repository Date:2017-09-23 09/14/2017 GALO O Primary NOT GIVENUNK [facility] Insurance:SELF PAY [address] Number: Effective Repository [place] Date:2017-09-14 [address]Giw: (RS) 09/01/2017 [place]ALO O Primary [place] [facility] Insurance:MYCARE [place] [facility]: [facility] CARE [id number] S *IN [facility] [id number] Hospital Number: Repository [place], [place] [id number] [address]Fak: Date:1808-18-68SIFA CLAIMS DEPTPO BOX (HP) [address] [address]MO: 09/01/2017 Secondary NOT GIVENUNK [place] Insurance:SELF PAY [facility] Number: Effective Repository Date:2017-09-01 08/14/2017 Galo O [id number] Primary [facility] CARE Number: Effective Repository [facility], Date:2017-08-14 [place] [phone]: () 08/04/2017 Galo O [id number] Primary NOT GIVENUNK [place] S [address] Insurance:SELF PAY [facility] CARE Number: Effective Repository [place], Date:2017-08-04 [place] [address]Wqu: () 07/31/2017 Galo O [id number] Primary NOT GIVENUNK Abiel S [address] [place] Insurance:SELF PAY [facility] CARE Number: Effective Repository [place], Date:2017-07-31 [place] [phone]: () 07/30/2017 Galo O [id number] Primary NOT GIVENUNK [place] S [address] [place] Insurance:SELF PAY [facility] CARE Number: Effective Repository [place], Date:2017-07-30 [place] [phone]: () 07/25/2017 [facility]:AUTO LAKEDOB: [facility] S INSURANCE [id number] Repository G[address] CHAVEZ [facility] Number: [place] [facility] [place] [id number] [facility] [address]Ztx: (330) Date:2017-07-25 28[address]Wxw: () [id number] [phone] Name:Hospital Director box ()Tel: [phone]) [place]yt[place], [place] [phone] () [address]WP: 07/25/2017 Secondary [facility] Insurance:CARESOURCE ECONOMYDOB: Foundation MEDICARE HMOPolicy [id number] Repository Number: Haley CHAVEZ [id number] [place], [place] Date:2017-07-25 [address]Buu: ([phone]) [id number] Name:NPO Box (HP)Tel: [phone]) 1974DayFoothill [place], [place] [address] (YP) [address]XF: 07/25/2017 [facility] Insurance:MEDICARE [facility]: [facility] APolic Number: [id number] Repository [id number] S [place] Date:2017-07-25 - [place] [id number] [address]Bsl: ([phone]) Name:MMail Code [phone] 600PO Box (HP)Tel: [phone]) 160481UdljjsjsKEENE, [place] [address] (XP) [address]YL: 06/30/2017 [facility] Galo [facility] Insurance:[facility]: [place] [address] S *IN NETWORKPolicy [id number] Hospital Number: Repository [place] [id number] [address]Iji: Date:1817-15-61KOPI CLAIMS DEPTPO BOX (HP) [address] [address]GO: 06/30/2017 Secondary NOT GIVENUNK [place]iel Insurance:SELF PAY [facility] Number: Effective Repository Date:2017-06-30
== END ==
LOC: OLS.WCC 07:15
PROVIDERS: Visit Provider Family Medicine
DX: D64.9 Anemia, unspecified (principal); Z79.899 Other long term (current) drug therapy
CPT/HCPCS: 36415; 80048; 85027

== ENCOUNTER → 2018-05-13 15:30 | Outpatient (REF) | payer MEDICARE, SELFPAY ==
[2018-05-14 08:12] LABS: Color, Urine Yellow (Yellow); Glucose, Dipstick 1000 mg/dl (Normal); Ketone-Dipstick Negative (Negative); Leukocyte Esterase-Dipstick 500 /ul (Negative); Nitrite-Dipstick Negative (Negative); Occult Blood-Urine 50 /ul (Negative); Protein-Dipstick 100 mg/dl (Negative); Specific Gravity, Urine 1.015 (1.002-1.030); Urine Bilirubin Dipstick Negative (Negative); Urine Clarity Sl. Cloudy (Clear); Urine Urobilinogen Normal (Normal)
== END ==
LOC: OLS.WCC 15:30
PROVIDERS: Visit Provider Family Medicine
DX: R30.0 Dysuria (principal)
CPT/HCPCS: 81002; 87086; 87088; 87186

== ENCOUNTER → 2018-05-19 05:55 | Outpatient (REF) | payer MEDICARE, SELFPAY ==
[2018-05-19 07:56] LABS: Hematocrit 35.3 % (40-54); Hemoglobin 11.3 g/dl (13.0-16.5); Mean Corpuscular Hgb 29.7 pg (27.0-32.0); Mean Corpuscular Volume 92.9 fL (80-94); Mean Platelet Vol. 12.9 fl (6.2-12.0); Platelet Count 223 K/mm3 (150-450); RBC Distribution Width CV 14.1 % (11.6-14.6); White Blood Count 12.3 K/mm3 (4.4-11.0)
[2018-05-19 08:00] LABS: Scan Indicated on CBC? Y/N NO
[2018-05-19 08:08] LABS: Anion Gap 10 (5-15); BUN 47 mg/dL (7-18); BUN/Creat Ratio 39.8 RATIO (10-20); Calcium,Total 9.2 mg/dL (8.5-10.1); Chloride 108 mmol/L (98-107); Creatinine, Serum 1.18 mg/dL (0.70-1.30); EST Glomerular Filtration Rate 64 mL/min (>60); Est Glom Filt Rate - Afr Amer 77 mL/min (>60); Glucose 310 mg/dL (74-106); Potassium 4.6 mmol/L (3.5-5.1); Sodium Level 143 mmol/L (136-145)
[2018-05-25 07:33] VITALS: BMI 21.3
== END ==
LOC: OLS.WCC 05:55
PROVIDERS: Visit Provider Family Medicine
DX: N40.0 Benign prostatic hyperplasia without lower urinary tract symptoms (principal); F03.90 Unspecified dementia, unspecified severity, without behavioral disturbance, psychotic disturbance, mood disturbance, and anxiety; E11.9 Type 2 diabetes mellitus without complications; R53.83 Other fatigue; R63.8 Other symptoms and signs concerning food and fluid intake; G20 Parkinson's disease; G40.89 Other seizures
CPT/HCPCS: 36415; 80048; 85027

== ENCOUNTER 2018-05-25 07:32 | Inpatient (IN) | payer MEDICARE, SELFPAY ==
[2018-05-25] VITALS (16 sets, daily range): BP systolic 111–157; BP diastolic 61–83; PULSE 91–124; RESP 14–22; TEMP 36.4–38.1; O2SAT 94–99; BMI 21.3; BMI 21.7; BMI 21.8
--- NOTE | 2018-05-25 07:41 | EKG12_ITS ---
Test Reason : UNRESP Blood Pressure : / mmHG Vent. Rate : 123 BPM Atrial Rate : 123 BPM P-R Int : 146 ms QRS Dur : 092 ms QT Int : 310 ms P-R-T Axes : 062 -15 048 degrees QTc Int : 443 ms Sinus tachycardia Otherwise normal ECG Confirmed by NAEL COLVIN, MARILU ([id number]), senior technical editor DEEPTI ERAZO ([id number]) on 05/28/2018 8:19:04 AM Referred By: RONI Confirmed By:MARILU NAYAK MD
--- NOTE | 2018-05-25 07:41 | RAD_ITS ---
STUDY: X-RAY CHEST REASON FOR EXAM: Male, 78 years old. Respiratory distress. TECHNIQUE: Single AP portable view of the chest. COMPARISON: Comparison is made with prior study dated February 23, 2018. FINDINGS: A nasogastric tube is seen. The tip is just distal to the gastroesophageal junction. EKG electrodes are seen. A loop recorder device is seen in the lateral left upper quadrant. The lungs are clear and expanded. There is no demonstrated pleural abnormality. Normal size heart. Normal mediastinum and caitie. Normal visualized pulmonary arteries. There is atherosclerotic calcification of the aortic arch with tortuosity. There are diffuse degenerative changes of the visualized thoracic spine. Questionable lytic lesions in the proximal left humeral shaft. There is no demonstrated abnormality of the visualized soft tissue structures of the upper abdomen. RAD/Chest 1 View IMPRESSION: Lungs are clear. The tip of the nasogastric tube is just distal to the gastroesophageal junction. Questionable lytic lesions in the proximal left humeral shaft. Electronically Signed: Isaac Covarrubias MD at 8:44 EST , Service support ,
--- NOTE | 2018-05-25 07:45 | RAD_ITS ---
STUDY: X-RAY - ABDOMEN/PELVIS REASON FOR EXAM: Male, 78 years old. NG placement. TECHNIQUE: Single AP view of the abdomen / pelvis. COMPARISON: None. FINDINGS: The tip of the nasogastric tube is just distal to the gastroesophageal junction most likely within a collapsed body of the stomach. There is an unremarkable bowel gas pattern. Surgical clips are seen in the right upper quadrant. Normal soft tissue structures. There are diffuse degenerative changes of the visualized lumbar spine. RAD/Abdomen Single View (Portable) IMPRESSION: The tip of the NG tube is in the body of the stomach. Electronically Signed: Isaac Covarrubias MD at 8:44 EST , Service support ,
[2018-05-25 07:51] LABS: Bedside Glucose 441 mg/dL (70-110)
[2018-05-25 07:52] LABS: Absolute Lymphocyte Count 1.25 X10^3/ul (0.83-4.51); Absolute Neutrophil Count 13.5 X10^3/uL (2.0-7.7); Basophil# 0.02 X10^3/uL; Basophil% 0.1 % (0-1); Hematocrit 40.1 % (40-54); Hemoglobin 12.8 g/dl (13.0-16.5); Lymphocyte # 1.25 X10^3/ul (4.0); Lymphocyte % 7.8 % (19-41); Mean Corp Hgb Conc 31.9 g/gl (32-36); Mean Corpuscular Hgb 30.5 pg (27.0-32.0); Mean Corpuscular Volume 95.7 fL (80-94); Mean Platelet Vol. 13.1 fl (6.2-12.0); Monocyte# 1.29 X10^3/uL; Neutrophil # 13.48 X10^3/uL (2.7-7.7); Neutrophil % 83.9 % (47-70); POSITIVE COUNT NO; POSITIVE DIFFERENTIAL NO; POSITIVE MORPHOLOGY NO; Platelet Count 209 K/mm3 (150-450); RBC Distribution Width CV 15.1 % (11.6-14.6); RBC Distribution Width SD 50.4 fl (35.1-43.9); Red Blood Count 4.19 M/mm3 (4.6-6.2); White Blood Count 16.1 K/mm3 (4.4-11.0)
[2018-05-25 07:56] LABS: International Normalized Ratio 1.1; Prothrombin Time (Protime)PT. 14.6 SECONDS (11.7-14.9)
[2018-05-25 07:57] LABS: Partial Thromboplast Time 25.2 Seconds (24.1-36.2)
[2018-05-25 08:02] LABS: Anion Gap 14 (5-15); BUN 71 mg/dL (7-18); BUN/Creat Ratio 36.6 RATIO (10-20); Calcium,Total 8.7 mg/dL (8.5-10.1); Chloride 120 mmol/L (98-107); Creatinine, Serum 1.94 mg/dL (0.70-1.30); EST Glomerular Filtration Rate 36 mL/min (>60); Est Glom Filt Rate - Afr Amer 43 mL/min (>60); Glucose 465 mg/dL (74-106); Potassium 4.4 mmol/L (3.5-5.1); Sodium Level 154 mmol/L (136-145)
--- NOTE | 2018-05-25 08:02 | ED.RN ---
BLOOD GLUCOSE 465. DR RUTLEDGE AWARE
[2018-05-25 08:20] LABS: Lactic Acid 2.5 mmol/L (0.4-2.0)
[2018-05-25] MEDS: Insulin Lispro 100 UNIT/ML INSULN.PEN 7 UNIT SC (08:40)
--- NOTE | 2018-05-25 08:51 | ED.VISSUMM ---
- ER Visit Summary Date of Service: 05/25/18 Chief Complaint: Patient arrived by ambulance because of decreased level of conscious, fever and coffee-ground emesis History of Present Illness: The patient is a 78 M who has multiple medical problems and poor quality of life according to daughter who is the POA. Multiple discussions regarding advanced directives. He arrived with a state signed DNR [employer] arrest document. Patient is unable to contribute with regards to history of physical. GCS 4. History is limited to what is written on the jail paperwork, and what the paramedics relayed to the nursing staff and me. Physical Examination: Patient is tachycardic, mild respiratory distress, febrile with a GCS of 4. HEENT exam is remarkable for bilateral crusty yellow discharge. Pupils are slightly reactive. Sclerae anicteric. Mouth is dry. There appears to be dried blood on lips. Heart is rapid and regular. Distant heart tones. Abnormal respiratory sounds bilaterally. Unable to discern if this is transmission of upper airway or lungs. Abdomen soft hyperactive bowel sounds. Test Results: EKG sinus tachycardia rate of 123 otherwise normal. Chest x-ray reveals no obvious abnormality. On the abdominal series there appears to be a right lower lobe infiltrate superior segment versus lower segment of the right middle lobe. OG is in proper position. There was significant amount of coffee-ground blood from the OG. White count is elevated at 16.1 thousand. Hemoglobin is 12.8. Sodium is 154. Chloride is 120. CO2 is 20 with an anion gap of 14. Blood sugar is 456. Creatinine is 1.93. Lactate is 2.5. Emergency Department Course and Treatment: Upon patient's arrival he was evaluated and IV was placed with fluid bolus. G/NG reveals active upper GI bleeding. Will obtain appropriate blood work to assess for anemia, sepsis, shock and electrolytes. He is diabetic and savannah states she blood sugar was high on their glucometer. Patient did receive subcu insulin. He was treated with IV Protonix. For presumed aspiration pneumonitis and the fact that he is from a nursing facility he received 4.5 g of Zosyn. He was typed and screened. After 4 phone conversations with his daughter Jenni who is the POA and after consultation with a physician who is her friend and her mother and reviewing his present condition, diagnostic findings he is no CPR, no intubation, no defibrillation or cardioversion. Central line is acceptable. IV hydration as long is not a burden and benefit to patient. A medical orders for life-sustaining treatment was completed by me. Time to complete medical orders for life-sustaining treatment was 50 minutes. Critical care time 32 minutes Treatment Plan: Treat for aspiration, shock, GI bleed with no aggressive measures Disposition: After discussion with nurse lunchroom supervisor and taking into consideration patient's condition and completion of medical orders for life-sustaining treatment he will be a full admission to PCU Impression: 1. Upper GI bleed 2. Lactic acidosis 3. Hyperglycemia greater than 400 5. Respiratory failure with hypoxia 5. Severe sepsis 6. Sinus tachycardia documented on monitor 7. Profound dehydration with sodium 154 This note was generated with [employer] software. It may contain incorrect words, spelling, and punctuation that were not noted in review of the chart prior to signing ED Disposition - Plan for ED Patient: Referrals: Edis Ellis MD [Primary Care Provider] -
--- NOTE | 2018-05-25 08:58 | ED.DCSUM_ITS ---
- ER Visit Summary Date of Service: 05/25/18 Chief Complaint: Patient arrived by ambulance because of decreased level of conscious, fever and coffee-ground emesis History of Present Illness: The patient is a 78 M who has multiple medical problems and poor quality of life according to daughter who is the POA. Multiple discussions regarding advanced directives. He arrived with a state signed DNR Comfort Care arrest document. Patient is unable to contribute with regards to history of physical. GCS 4. History is limited to what is written on the [facility] paperwork, and what the paramedics relayed to the nursing staff and me. Physical Examination: Patient is tachycardic, mild respiratory distress, febrile with a GCS of 4. HEENT exam is remarkable for bilateral crusty yellow discharge. Pupils are slightly reactive. Sclerae anicteric. Mouth is dry. There appears to be dried blood on lips. Heart is rapid and regular. Distant heart tones. Abnormal respiratory sounds bilaterally. Unable to discern if this is transmission of upper airway or lungs. Abdomen soft hyperactive bowel sounds. Test Results: EKG sinus tachycardia rate of 123 otherwise normal. Chest x-ray reveals no obvious abnormality. On the abdominal series there appears to be a right lower lobe infiltrate superior segment versus lower segment of the right middle lobe. OG is in proper position. There was significant amount of coffee- ground blood from the OG. White count is elevated at 16.1 thousand. Hemoglobin is 12.8. Sodium is 154. Chloride is 120. CO2 is 20 with an anion gap of 14. Blood sugar is 456. Creatinine is 1.93. Lactate is 2.5. Emergency Department Course and Treatment: Upon patient's arrival he was evaluated and IV was placed with fluid bolus. G/NG reveals active upper GI bleeding. Will obtain appropriate blood work to assess for anemia, sepsis, shock and electrolytes. He is diabetic and savannah states she blood sugar was high on their glucometer. Patient did receive subcu insulin. He was treated with IV Protonix. For presumed aspiration pneumonitis and the fact that he is from a nursing facility he received 4.5 g of Zosyn. He was typed and screened. After 4 phone conversations with his daughter Jenni who is the POA and after consultation with a physician who is her friend and her mother and reviewing his present condition, diagnostic findings he is no CPR, no intubation, no defi brillation or cardioversion. Central line is acceptable. IV hydration as long is not a burden and benefit to patient. A medical orders for life-sustaining treatment was completed by me. Time to complete medical orders for life-sustaining treatment was 50 minutes. Critical care time 32 minutes Treatment Plan: Treat for aspiration, shock, GI bleed with no aggressive measure s Disposition: After discussion with nurse supervisor power reactor and taking into consideration patient's condition and completion of medical orders for life- sustaining treatment he will be a full admission to PCU Impression: 1. Upper GI bleed 2. Lactic acidosis 3. Hyperglycemia greater than 400 5. Respiratory failure with hypoxia 5. Severe sepsis 6. Sinus tachycardia documented on monitor 7. Profound dehydration with sodium 154 This note was generated with [employer] dictation software. It may contain incorrect words, spelling, and punctuation that were not noted in review of the chart prior to signing ED Disposition - Plan for ED Patient: Referrals: Edis Ellis MD [Primary Care Provider] -
--- NOTE | 2018-05-25 09:04 | NURSING ---
DR YOJANA RUTLEDGE
--- NOTE | 2018-05-25 09:12 | NURSING ---
PCU DAVIS, SUSPECTED PNA, SEVERE SEPSIS SEMENTI
[2018-05-25] MEDS: 0.45% Normal Saline 1,000 ML 100 ML IV ×2 (10:55→20:45)
[2018-05-25] MEDS: Insulin Lispro 100 UNIT/ML INSULN.PEN SC ×5 (11:14→22:03)
[2018-05-25 11:26] LABS: Bedside Glucose 331 mg/dL (70-110)
[2018-05-25 11:48] LABS: Reflex Lactate? Y
[2018-05-25 11:50] LABS: Hematocrit 37.1 % (40-54); Hemoglobin 11.6 g/dl (13.0-16.5)
[2018-05-25 12:06] LABS: Bedside Glucose 313 mg/dL (70-110)
[2018-05-25 12:16] LABS: Color, Urine Yellow (Yellow); Glucose, Dipstick Normal (Normal); Ketone-Dipstick Negative (Negative); Leukocyte Esterase-Dipstick Negative /ul (Negative); Nitrite-Dipstick Negative (Negative); Occult Blood-Urine 50 /ul (Negative); Protein-Dipstick 100 mg/dl (Negative); Urine Bilirubin Dipstick Negative (Negative); Urine Clarity Sl. Cloudy (Clear); Urine Urobilinogen Normal (Normal)
[2018-05-25 12:41] LABS: AST(SGOT) 20 U/L (15-37); Alanine Aminotransfer ALT/SGPT 20 U/L (16-61); Albumin, Serum 2.7 g/dL (3.2-5.0); Alkaline Phosphatase 89 U/L (45-117); Bilirubin, Direct 0.09 mg/dL (0.00-0.30); Protein, Total 6.7 g/dL (6.4-8.2)
[2018-05-25 13:13] LABS: Lactic Acid 3.1 mmol/L (0.4-2.0)
--- NOTE | 2018-05-25 13:25 | HP.PCM_ITS ---
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 for persistent fever. Patient has significant dementia and history was obtained from daughter primarily with help from son. The patient has been increasingly lethargic over the past week with a fever - he was diagnosed with a UTI and started on PO abx - daughter is unsure which. He had problems swallowing these and was placed on IV abx - again unclear which. This morning he was more lethargic, confused, and with persistent fevers. He then had an episode of coffee ground emesis. Daughter denies hx of upper GI bleeding, denies hx of alcoholism. We was sent to the ER and an NG tube was placed and showed bleeding. He also appeared septic and febrile. Glucose was severely elevated but no ketones. On exam he does not open his eyes but answers yes and no to questions. He denies pain or discomfort. Clark in place. The family feels his mental status is improving. They confirm DNR-CCA no CPR/intubation. They would like all other care including endoscopy if necessary. [] Past Medical History Past Medical History (Chronic Problems): Chronic Problems Hypotension (Chronic) Chronic airway obstruction (Chronic) mild 120 PY hx smoking Coronary artery disease (Chronic) History of TIAs (Chronic) Seizure disorder (Chronic) Hyperlipidemia (Chronic) Normochromic normocytic anemia (Chronic) Parkinson disease (Chronic) Diabetic peripheral neuropathy (Chronic) Gait abnormality (Chronic) History of.. 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 CVD (cerebrovascular disease) (Chronic) Hypertension (Chronic) Diabetes mellitus type 2 in nonobese (Chronic) Allergies tuberculin, purified protein deriva [From Aplisol] Allergy (Verified 05/25/18 07:41) Unknown PPD Adverse Reaction (Uncoded 09/23/17 11:20) Other Home Medications: Ambulatory Orders Medication Instructions Recorded Ferrous Sulfate 325 mg PO DAILY 08/31/15 levETIRAcetam tablet [Keppra 500 mg PO BID 08/31/15 tablet] Multivitamins,Ther W-Minerals 1 tablet PO DAILY 09/01/15 [Multivitamin With Minerals] Sitagliptin Phosphate [Januvia] 50 mg PO DAILY 09/01/15 Buspirone HCl 15 mg PO BID 10/23/15 Metformin HCl [Glucophage] 1,000 mg PO BIDCM 10/23/15 Omeprazole [Prilosec] 20 mg PO DAILY 10/23/15 Acetaminophen [Tylenol] 650 mg PO Q4H PRN 09/23/17 Docusate Sodium [Colace] 200 mg PO QHS 09/23/17 Escitalopram Oxalate [Lexapro] 5 mg PO DAILY 09/23/17 Guaifenesin [Robitussin] 10 ml PO Q4H PRN PRN 09/23/17 Primidone [Mysoline] 50 mg PO BID 09/23/17 Tamsulosin HCl [Flomax] 0.4 mg PO DAILY@1730 09/23/17 Carbidopa/Levodopa 25/100 [Sinemet] 1 tablet PO TIDAC 05/25/18 Sennosides/Docusate Sodium 1 each PO BID 05/25/18 [Senna-S Tablet] Surgical History: cholecystectomy, TURP, - - craniontomy for R AVM 1997 Psychiatric History: No pertinent psych hx Lives: [facility] Smoking Status: Former smoker Tobacco Use: Non-smoker Alcohol: None Drugs: None - *Family History Maternal History Items: Dementia Paternal History Items: No pertinent history, - - no premature cardiac Review of Systems Constitutional: Reports: Fever, Malaise, Weakness, Fatigue. Denies: Chills, Weight Change HEENT: Denies: Head Aches, Sinus Congestion, Sinus Drainage Cardiovascular: Denies: Chest Pain, Palpitations Respiratory: Denies: Cough, Shortness of breath at rest, Sputum production Gastrointestinal: Denies: Abdominal Pain, Nausea, Vomiting Genitourinary: Denies: Dysuria Musculoskeletal: Denies: Joint Pain, Joint Tenderness Skin: Denies: Rash, Wounds Neurological: Denies: Numbness, Tingling, Focal weakness Psychiatric: Denies: Anxiety, Depression, Homicidal Ideations, Suicidal Ideations Hematologic/ Lymphatic: Denies: Easy Bruising, Easy Bleeding VTE Information - Inpt Only VTE Present on Admission: No VTE Mechan Device Prophylaxis: SCD's VTE Pharm Prophylaxis ordered?: No Patient Problems: Active and Suspected Problems Sepsis (Acute) UTI (urinary tract infection) (Acute) Upper GI bleed (Acute) - Physical Exam General: Alert, Lethargic HEENT: Atraumatic, PERRLA, EOMI, Normocephalic Neck: Supple, No JVD, Negative Carotid Bruits Lungs: Clear to auscultation, Normal air movement Cardiovascular: Regular rate, No murmurs Abdomen: Bowel Sounds Present, Soft, Non Tender Extremities: No edema, Capillary Refill Less than 3 Seconds Skin: No rashes, No breakdown Musculoskeletal: No Tenderness to Palpation of Joints or Extremities Neurological: Cranial nerves II-XII grossly intact Psych/Mental Status: Normal Affect, Appropriate, Alert and oriented to time, place, person, mood and affect Vital Signs Temp Pulse Resp BP Pulse Ox 98.6 F 104 H 17 132/81 H 99 05/25/18 12:30 05/25/18 12:30 05/25/18 12:30 05/25/18 12:30 05/25/18 12:30 Oxygen Flow Rate (L/min) 2 Oxygen Delivery Method Nasal Cannula Weight: 138 lb 14.259 oz Body Mass Index (BMI) 21.7 Finger Stick Blood Glucose 441 Intake and Output for Last 24 Hours 05/23/18 05/24/18 05/25/18 23:59 23:59 23:59 Intake Total 200 / 200 Output Total 700 / 700 Balance -500 / -500 Laboratory Tests Past 24 Hrs 05/25/18 05/25/18 05/25/18 07:40 07:40 07:40 WBC 16.1 H RBC 4.19 L Hgb 12.8 L Hct 40.1 MCV 95.7 H MCH 30.5 MCHC 31.9 L RDW 15.1 H RDW Differential 50.4 H Plt Count 209 MPV 13.1 H Immature Gran % (Auto) 0.200 Neut % (Auto) 83.9 H Lymph % (Auto) 7.8 L [place] % (Auto) 8.0 Eos % (Auto) 0.0 Baso % (Auto) 0.1 Absolute Neuts (auto) 13.5 H Absolute Lymphs (auto) 1.25 Total Counted Not Reportable PT 14.6 INR 1.1 APTT 25.2 Sodium 154 H Potassium 4.4 Chloride 120 H Carbon Dioxide 20.0 L Anion Gap 14 BUN 71 H Creatinine 1.94 H Estim Creat Clear Calc 31.30 Est GFR (MDRD) Af Amer 43 L Est GFR (MDRD) Non-Af 36 L BUN/Creatinine Ratio 36.6 H Glucose 465 H* Lactic Acid Calcium 8.7 Total Bilirubin Direct Bilirubin AST ALT Alkaline Phosphatase Total Protein Albumin Globulin Urine Color Urine Clarity Urine pH Ur Specific Prince Urine Protein Urine Glucose (UA) Urine Ketones Urine Occult Blood Urine Nitrite Urine Bilirubin Urine Urobilinogen Ur Leukocyte Esterase Acetone Level Blood Type Antibody Screen 05/25/18 05/25/18 05/25/18 07:40 07:40 07:50 WBC RBC Hgb Hct MCV MCH MCHC RDW RDW Differential Plt Count MPV Immature Gran % (Auto) Neut % (Auto) Lymph % (Auto) [place] % (Auto) Eos % (Auto) Baso % (Auto) Absolute Neuts (auto) Absolute Lymphs (auto) Total Counted PT INR APTT Sodium Potassium Chloride Carbon Dioxide Anion Gap BUN Creatinine Estim Creat Clear Calc Est GFR (MDRD) Af Amer Est GFR (MDRD) Non-Af BUN/Creatinine Ratio Glucose Lactic Acid 2.5 H Calcium Total Bilirubin Direct Bilirubin AST ALT Alkaline Phosphatase Total Protein Albumin Globulin Urine Color Urine Clarity Urine pH Ur Specific Prince Urine Protein Urine Glucose (UA) Urine Ketones Urine Occult Blood Urine Nitrite Urine Bilirubin Urine Urobilinogen Ur Leukocyte Esterase Acetone Level NEGATIVE Blood Type A POSITIVE Antibody Screen NEGATIVE 05/25/18 05/25/18 05/25/18 11:44 11:44 12:00 WBC RBC Hgb 11.6 L Hct 37.1 L MCV MCH MCHC RDW RDW Differential Plt Count MPV Immature Gran % (Auto) Neut % (Auto) Lymph % (Auto) [place] % (Auto) Eos % (Auto) Baso % (Auto) Absolute Neuts (auto) Absolute Lymphs (auto) Total Counted PT INR APTT Sodium Potassium Chloride Carbon Dioxide Anion Gap BUN Creatinine Estim Creat Clear Calc Est GFR (MDRD) Af Amer Est GFR (MDRD) Non-Af BUN/Creatinine Ratio Glucose Lactic Acid Calcium Total Bilirubin 0.30 Direct Bilirubin 0.09 AST 20 ALT 20 Alkaline Phosphatase 89 Total Protein 6.7 Albumin 2.7 L Globulin 4.0 Urine Color Yellow Urine Clarity Sl. Cloudy Urine pH 5.0 Ur Specific Prince 1.020 Urine Protein 100 H Urine Glucose (UA) Normal Urine Ketones Negative Urine Occult Blood 50 H Urine Nitrite Negative Urine Bilirubin Negative Urine Urobilinogen Normal Ur Leukocyte Esterase Negative Acetone Level Blood Type Antibody Screen 05/25/18 12:18 WBC RBC Hgb Hct MCV MCH MCHC RDW RDW Differential Plt Count MPV Immature Gran % (Auto) Neut % (Auto) Lymph % (Auto) [place] % (Auto) Eos % (Auto) Baso % (Auto) Absolute Neuts (auto) Absolute Lymphs (auto) Total Counted PT INR APTT Sodium Potassium Chloride Carbon Dioxide Anion Gap BUN Creatinine Estim Creat Clear Calc Est GFR (MDRD) Af Amer Est GFR (MDRD) Non-Af BUN/Creatinine Ratio Glucose Lactic Acid 3.1 H Calcium Total Bilirubin Direct Bilirubin AST ALT Alkaline Phosphatase Total Protein Albumin Globulin Urine Color Urine Clarity Urine pH Ur Specific Prince Urine Protein Urine Glucose (UA) Urine Ketones Urine Occult Blood Urine Nitrite Urine Bilirubin Urine Urobilinogen Ur Leukocyte Esterase Acetone Level Blood Type Antibody Screen POC Glucose 05/25/18 05/25/18 05/25/18 11:53 11:10 07:38 POC Glucose 313 H 331 H 441 H Assessment/Plan All Active Problems Acute metabolic encephalopathy (Acute) Sepsis (Acute) UTI (urinary tract infection) (Acute) Upper GI bleed (Acute) Dehydration (Acute) Cognitive deficits (Resolved) History of Hematemesis (Resolved) History of Ischemic Colitis (Resolved) History of tobacco use (Resolved) History of upper gastrointestinal bleeding (Resolved) Syncope (Resolved) 1. Acute severe sepsis 2/2 presumed aspiration pna and UTI - continue zosyn. Persistent fevers. Check UA/Cx. Scheduled aerosols. + leukocytosis, fever, tachypnea, lactic acidosis. Speech therapy when appropriate. Clark in place. 2. Upper GI bleed - npo. NG in place. protonix drip. Consult gen surg. T/S done. H/H q6h. Platelets normal. Not on blood thinners. 3. T2DM with Hyperglycemia with HHS - IV fluids, acetones normal. SSI. Permanently DC metformin given lactic acidosis. 4. Seizure disorder - keppra on hold. IV if prolonged NPO. 5. Dementia - declining function. 6. Parkinson - sinemet when able to tolerate po 7. Hx CVD - TIA and CAD. 8. Macrocytic anemia - on po iron. DVT ppx: SCDs DC planning: Discussed prognosis with family given aspiration, sepsis, GI bleed. They desire to maintain DNR-CCA status, may consider palliative/hospice if prognosis worsens. This patient was seen by Duke Oden PA-C under the supervision of Dr. Rubio.
--- NOTE | 2018-05-25 14:16 | CASEMGMT ---
MODESTA spoke with patient's daughter, Jenni. She is patient's Healthcare POA. She will bring in copies of the POA papers and patient's Healthcare LW. Kelle NGUYEN MSW
--- NOTE | 2018-05-25 14:28 | CASEMGMT ---
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 Daughter confirms the plan is for patient to return to [facility] at d/c. SW to follow for d/c back to [facility]. Kelle NGUYEN MSW
[2018-05-25 15:06] LABS: Bedside Glucose 252 mg/dL (70-110)
[2018-05-25] MEDS: 0.9% NaCl Peripheral Flush Adult/Peds IV (17:17)
[2018-05-25 17:26] LABS: Bedside Glucose 258 mg/dL (70-110)
[2018-05-25 18:33] LABS: Hematocrit 36.8 % (40-54); Hemoglobin 11.3 g/dl (13.0-16.5)
[2018-05-25 22:31] LABS: Bedside Glucose 313 mg/dL (70-110)
[2018-05-25 23:40] LABS: Hemoglobin 11.1 g/dl (13.0-16.5)
[2018-05-26] VITALS (12 sets, daily range): BP systolic 124–144; BP diastolic 64–80; PULSE 78–104; RESP 16–18; TEMP 36.4–37.2; O2SAT 94–97
[2018-05-26 00:04] LABS: Lactic Acid 1.7 mmol/L (0.4-2.0)
[2018-05-26] MEDS: Insulin Lispro 100 UNIT/ML INSULN.PEN SC ×5 (02:18→17:20)
[2018-05-26 02:36] LABS: Bedside Glucose 252 mg/dL (70-110)
[2018-05-26 06:10] LABS: Bedside Glucose 226 mg/dL (70-110)
[2018-05-26 06:12] LABS: Vitamin B12 617 pg/mL (211-911)
[2018-05-26 06:15] LABS: Hematocrit 34.5 % (40-54); Hemoglobin 10.7 g/dl (13.0-16.5); Lymphocyte % 14.9 % (19-41); Mean Corpuscular Hgb 30.4 pg (27.0-32.0); Mean Platelet Vol. 13.3 fl (6.2-12.0); Neutrophil % 73.7 % (47-70); Platelet Count 173 K/mm3 (150-450); RBC Distribution Width CV 15.2 % (11.6-14.6); RBC Distribution Width SD 51.4 fl (35.1-43.9); Red Blood Count 3.52 M/mm3 (4.6-6.2); White Blood Count 11.3 K/mm3 (4.4-11.0)
[2018-05-26 06:16] LABS: Absolute Lymphocyte Count 1.68 X10^3/ul (0.83-4.51); Absolute Neutrophil Count 8.3 X10^3/uL (2.0-7.7); Basophil# 0.03 X10^3/uL; Basophil% 0.3 % (0-1); Eosinophil# 0.04 X10^3/uL; Eosinophils% 0.4 % (0-5); Lymphocyte # 1.68 X10^3/ul (4.0); Monocyte# 1.18 X10^3/uL; Monocyte% 10.4 % (0-10); Neutrophil # 8.34 X10^3/uL (2.7-7.7)
[2018-05-26 06:27] LABS: ALB/GLOB Ratio 0.7 RATIO (0.9-2.4); AST(SGOT) 25 U/L (15-37); Alanine Aminotransfer ALT/SGPT 33 U/L (16-61); Albumin, Serum 2.5 g/dL (3.2-5.0); Alkaline Phosphatase 81 U/L (45-117); Anion Gap 10 (5-15); BUN 53 mg/dL (7-18); BUN/Creat Ratio 34.2 RATIO (10-20); Calcium,Total 8.1 mg/dL (8.5-10.1); Chloride 125 mmol/L (98-107); Creatinine, Serum 1.55 mg/dL (0.70-1.30); EST Glomerular Filtration Rate 46 mL/min (>60); Est Glom Filt Rate - Afr Amer 56 mL/min (>60); Estimated Creatinine Clearance 35.56 ml/min; Globulin 3.5 g/dL (2.2-4.2); Glucose 252 mg/dL (74-106); Sodium Level 157 mmol/L (136-145)
[2018-05-26 06:28] LABS: POSITIVE COUNT NO; POSITIVE DIFFERENTIAL NO; POSITIVE MORPHOLOGY NO
[2018-05-26 06:30] LABS: Erythrocyte Sedimentation Rate 33 mm/hr (0-20)
[2018-05-26 06:56] LABS: CRP < 2.90 mg/L (0.0-3.0); Phosphorus 3.4 mg/dL (2.5-4.9); Thyroid Stim Hormone (TSH) 0.84 uIU/mL (0.358-3.74)
[2018-05-26 08:47] LABS: Hemoglobin A1c 10.1 % (4.2-6.3)
[2018-05-26 10:21] LABS: Bedside Glucose 264 mg/dL (70-110)
[2018-05-26] MEDS: levETIRAcetam 500 MG Tablet PO ×2 (11:08→22:55)
[2018-05-26] MEDS: busPIRone 15 MG TABLET PO ×2 (11:08→22:55)
[2018-05-26] MEDS: Escitalopram Oxalate 10 MG Tablet PO (11:09)
[2018-05-26] MEDS: Primidone 50 MG Tablet PO ×2 (11:09→22:54)
[2018-05-26] MEDS: Senna/Docusate Sodium 1 Tablet PO ×2 (11:10→22:53)
[2018-05-26] MEDS: Carbidopa/Levodopa 25/100 Tablet PO ×2 (11:10→17:12)
[2018-05-26 14:07] LABS: Absolute Lymphocyte Count 1.82 X10^3/ul (0.83-4.51); Absolute Neutrophil Count 8.7 X10^3/uL (2.0-7.7); Basophil# 0.04 X10^3/uL; Basophil% 0.3 % (0-1); Eosinophil# 0.09 X10^3/uL; Eosinophils% 0.8 % (0-5); Hemoglobin 11.5 g/dl (13.0-16.5); Lymphocyte # 1.82 X10^3/ul (4.0); Lymphocyte % 15.5 % (19-41); Mean Corp Hgb Conc 31.1 g/gl (32-36); Mean Corpuscular Hgb 30.3 pg (27.0-32.0); Mean Corpuscular Volume 97.6 fL (80-94); Monocyte# 0.99 X10^3/uL; Monocyte% 8.5 % (0-10); Neutrophil # 8.74 X10^3/uL (2.7-7.7); Neutrophil % 74.6 % (47-70); POSITIVE COUNT NO; POSITIVE DIFFERENTIAL NO; POSITIVE MORPHOLOGY NO; Platelet Count 176 K/mm3 (150-450); RBC Distribution Width CV 15.1 % (11.6-14.6); RBC Distribution Width SD 51.2 fl (35.1-43.9); Red Blood Count 3.79 M/mm3 (4.6-6.2); White Blood Count 11.7 K/mm3 (4.4-11.0)
[2018-05-26 14:12] LABS: BUN 50 mg/dL (7-18); Estimated Creatinine Clearance 36.75 ml/min; Glucose 309 mg/dL (74-106)
[2018-05-26 14:13] LABS: Anion Gap 9 (5-15); BUN/Creat Ratio 33.3 RATIO (10-20); Calcium,Total 8.3 mg/dL (8.5-10.1); Chloride 122 mmol/L (98-107); EST Glomerular Filtration Rate 48 mL/min (>60); Est Glom Filt Rate - Afr Amer 58 mL/min (>60); Potassium 3.8 mmol/L (3.5-5.1); Sodium Level 154 mmol/L (136-145)
--- NOTE | 2018-05-26 14:29 | PCM.PROGNOTE ---
Patient Problems: Active and Suspected Problems Sepsis (Acute) UTI (urinary tract infection) (Acute) Upper GI bleed (Acute) Subjective: More alert today with eye opening. Denies complaints. Passed swallowing test for puree/nectar thick. Parkinson like tremor present. No n/v. NG out. Coughing. No fever. Denies SOB. - Physical Exam General: Alert, Cooperative HEENT: Atraumatic, PERRLA, EOMI, Normocephalic Neck: Supple, No JVD, Negative Carotid Bruits Lungs: Diminished, Rales - right lung base Cardiovascular: Regular rate, No murmurs Abdomen: Bowel Sounds Present, Soft, Non Tender Extremities: No edema, Capillary Refill Less than 3 Seconds Skin: No rashes, No breakdown Musculoskeletal: No Tenderness to Palpation of Joints or Extremities Neurological: Cranial nerves II-XII grossly intact, - - masked facies, cogwheel rigidity, pill rolling, upper ext tremor. Psych/Mental Status: Normal Affect, Appropriate Vital Signs Temp Pulse Resp BP Pulse Ox 97.6 F L 102 H 16 124/71 H 97 05/26/18 10:00 05/26/18 11:02 05/26/18 10:00 05/26/18 10:00 05/26/18 10:00 Oxygen Flow Rate (L/min) 2 Oxygen Delivery Method Nasal Cannula Weight: 138 lb 14.259 oz Body Mass Index (BMI) 21.7 Finger Stick Blood Glucose 441 Intake and Output for Last 24 Hours 05/24/18 05/25/18 05/26/18 23:59 23:59 23:59 Intake Total 1874.4 / 1874.4 995.5 / 995.5 Output Total 1395 / 1395 300 / 300 Balance 479.4 / 479.4 695.5 / 695.5 Laboratory Tests Past 24 Hrs 05/25/18 05/25/18 05/25/18 17:00 23:29 23:29 WBC RBC Hgb 11.3 L 11.1 L Hct 36.8 L 36.0 L MCV MCH MCHC RDW RDW Differential Plt Count MPV Immature Gran % (Auto) Neut % (Auto) Lymph % (Auto) [place] % (Auto) Eos % (Auto) Baso % (Auto) Absolute Neuts (auto) Absolute Lymphs (auto) Total Counted ESR Sodium Potassium Chloride Carbon Dioxide Anion Gap BUN Creatinine Estim Creat Clear Calc Est GFR (MDRD) Af Amer Est GFR (MDRD) Non-Af BUN/Creatinine Ratio Glucose Hemoglobin A1c Lactic Acid 1.7 Calcium Phosphorus Magnesium Total Bilirubin AST ALT Alkaline Phosphatase C-React Prot Ext Range Total Protein Albumin Globulin Albumin/Globulin Ratio Vitamin B12 TSH 05/26/18 05/26/18 05/26/18 05:10 05:10 05:10 WBC 11.3 H RBC 3.52 L Hgb 10.7 L Hct 34.5 L MCV 98.0 H MCH 30.4 MCHC 31.0 L RDW 15.2 H RDW Differential 51.4 H Plt Count 173 MPV 13.3 H Immature Gran % (Auto) 0.300 Neut % (Auto) 73.7 H Lymph % (Auto) 14.9 L [place] % (Auto) 10.4 H Eos % (Auto) 0.4 Baso % (Auto) 0.3 Absolute Neuts (auto) 8.3 H Absolute Lymphs (auto) 1.68 Total Counted Not Reportable ESR 33 H Sodium 157 H Potassium 4.0 Chloride 125 H Carbon Dioxide 22.0 Anion Gap 10 BUN 53 H Creatinine 1.55 H Estim Creat Clear Calc 35.56 Est GFR (MDRD) Af Amer 56 L Est GFR (MDRD) Non-Af 46 L BUN/Creatinine Ratio 34.2 H Glucose 252 H Hemoglobin A1c Lactic Acid Calcium 8.1 L Phosphorus 3.4 Magnesium 2.0 Total Bilirubin 0.30 AST 25 ALT 33 Alkaline Phosphatase 81 C-React Prot Ext Range < 2.90 Total Protein 6.0 L Albumin 2.5 L Globulin 3.5 Albumin/Globulin Ratio 0.7 L Vitamin B12 TSH 0.84 05/26/18 05/26/18 05/26/18 05:10 05:10 13:50 WBC 11.7 H RBC 3.79 L Hgb 11.5 L Hct 37.0 L MCV 97.6 H MCH 30.3 MCHC 31.1 L RDW 15.1 H RDW Differential 51.2 H Plt Count 176 MPV 13.0 H Immature Gran % (Auto) 0.300 Neut % (Auto) 74.6 H Lymph % (Auto) 15.5 L [place] % (Auto) 8.5 Eos % (Auto) 0.8 Baso % (Auto) 0.3 Absolute Neuts (auto) 8.7 H Absolute Lymphs (auto) 1.82 Total Counted Not Reportable ESR Sodium Potassium Chloride Carbon Dioxide Anion Gap BUN Creatinine Estim Creat Clear Calc Est GFR (MDRD) Af Amer Est GFR (MDRD) Non-Af BUN/Creatinine Ratio Glucose Hemoglobin A1c 10.1 H Lactic Acid Calcium Phosphorus Magnesium Total Bilirubin AST ALT Alkaline Phosphatase C-React Prot Ext Range Total Protein Albumin Globulin Albumin/Globulin Ratio Vitamin B12 617 TSH 05/26/18 13:50 WBC RBC Hgb Hct MCV MCH MCHC RDW RDW Differential Plt Count MPV Immature Gran % (Auto) Neut % (Auto) Lymph % (Auto) [place] % (Auto) Eos % (Auto) Baso % (Auto) Absolute Neuts (auto) Absolute Lymphs (auto) Total Counted ESR Sodium 154 H Potassium 3.8 Chloride 122 H Carbon Dioxide 23.0 Anion Gap 9 BUN 50 H Creatinine 1.50 H Estim Creat Clear Calc 36.75 Est GFR (MDRD) Af Amer 58 L Est GFR (MDRD) Non-Af 48 L BUN/Creatinine Ratio 33.3 H Glucose 309 H Hemoglobin A1c Lactic Acid Calcium 8.3 L Phosphorus Magnesium Total Bilirubin AST ALT Alkaline Phosphatase C-React Prot Ext Range Total Protein Albumin Globulin Albumin/Globulin Ratio Vitamin B12 TSH POC Glucose 05/26/18 05/26/18 05/26/18 10:12 05:56 02:07 POC Glucose 264 H 226 H 252 H 05/25/18 05/25/18 05/25/18 22:01 17:14 14:50 POC Glucose 313 H 258 H 252 H Medical Necessity - Tobacco Use Smoking Status: Former smoker Tobacco Use: Non-smoker Assessment/Plan All Active Problems Acute metabolic encephalopathy (Acute) Sepsis (Acute) UTI (urinary tract infection) (Acute) Upper GI bleed (Acute) Dehydration (Acute) Cognitive deficits (Resolved) History of Hematemesis (Resolved) History of Ischemic Colitis (Resolved) History of tobacco use (Resolved) History of upper gastrointestinal bleeding (Resolved) Syncope (Resolved) 1. Acute severe sepsis 2/2 presumed aspiration pna - UTI ruled out. continue zosyn. Scheduled aerosols. Modified diet. 2. Upper GI bleed - No further issues. Monitor H/H. No endsocopy at this time. Continue protonix with plan for BID at dc. 3. T2DM - hyperglycemia improved. Orals held. continue SSI. 4. Seizure disorder - home meds. 5. Dementia - declining function over recent months. 6. Parkinson - sinemet. Neuro consult as his symptoms seem to be worsening. 7. Hx CVD - TIA and CAD. 8. Macrocytic anemia - on po iron. 9. Dysphagia - modified diet. Continue this and ST at dc. Pureed/nectar thick. DVT ppx: SCDs DC planning: Return to SNF when further improved. This patient was seen by Duke Oden PA-C under the supervision of Dr. Rubio.
[2018-05-26 14:51] LABS: Bedside Glucose 302 mg/dL (70-110)
[2018-05-26] MEDS: Tamsulosin HCl 0.4 MG Capsule PO (17:13)
[2018-05-26 17:25] LABS: Bedside Glucose 390 mg/dL (70-110)
--- NOTE | 2018-05-26 18:35 | NURSING ---
Pts family brought in his glasses and dentures today.
[2018-05-26] MEDS: Docusate Sodium 100 MG Capsule 200 MG PO (22:53)
[2018-05-26 23:15] LABS: Bedside Glucose 458 mg/dL (70-110)
[2018-05-26] MEDS: Insulin Lispro 100 UNIT/ML INSULN.PEN 20 UNIT SC (23:52)
[2018-05-27] VITALS (10 sets, daily range): BP systolic 120–139; BP diastolic 72–85; PULSE 68–105; RESP 16; TEMP 36.6–36.8; O2SAT 94–98
[2018-05-27] MEDS: Insulin Lispro 100 UNIT/ML INSULN.PEN SC ×4 (02:00→16:21)
[2018-05-27 02:26] LABS: Bedside Glucose 343 mg/dL (70-110)
[2018-05-27 06:00] LABS: Bedside Glucose 186 mg/dL (70-110)
[2018-05-27] MEDS: Carbidopa/Levodopa 25/100 Tablet PO ×3 (06:58→16:22)
--- NOTE | 2018-05-27 08:03 | PCM.PROGNOTE ---
Subjective: Antibiotics day #3-Zosyn All events of the past 24 hours been reviewed. Fever has resolved and he has been afebrile for greater than 24 hours. Vital signs are stable and he is 96-98% saturated on a 2 L nasal cannula. Urine and blood cultures are pending More alert today, occasional cough, denies pain, able to follow some simple commands Objective: PHYSICAL EXAM: GENERAL: alert, Cooperative, NAD ORAL: dry mucosa, no mucosal lesions NECK: No JVD, supple, trachea midline LUNGS: Diminished, persistent rales in the right lung base, not tachypneic, no conversational dyspnea, no accessory muscle use, symmetric chest expansion HEART: RRR, Normal S1 and S2, no rub, no gallop, no murmurs ABDOMEN: soft, NT, ND, BS present, no guarding with palpation EXTREMITIES: no edema, no cyanosis, no calf tenderness SKIN: No rashes, no breakdown NEUROLOGIC: no focal neurologic deficits, masked faces, + cogwheel rigidity, bradykinesia, + pill rolling tremor PSYCH: appropriate, normal affect, pleasant - Physical Exam Vital Signs Temp Pulse Resp BP Pulse Ox 98.3 F 84 16 125/77 H 98 05/27/18 02:02 05/27/18 03:28 05/27/18 02:02 05/27/18 02:02 05/27/18 07:35 Oxygen Flow Rate (L/min) 2 Oxygen Delivery Method Nasal Cannula Weight: 138 lb 14.259 oz Body Mass Index (BMI) 21.7 Finger Stick Blood Glucose 441 Intake and Output for Last 24 Hours 05/25/18 05/26/18 05/27/18 23:59 23:59 23:59 Intake Total 1874.4 / 1874.4 1164.5 / 1164.5 230 / 230 Output Total 1395 / 1395 300 / 300 Balance 479.4 / 479.4 864.5 / 864.5 230 / 230 Laboratory Tests Past 24 Hrs 05/26/18 05/26/18 05/26/18 05:10 13:50 13:50 WBC 11.7 H RBC 3.79 L Hgb 11.5 L Hct 37.0 L MCV 97.6 H MCH 30.3 MCHC 31.1 L RDW 15.1 H RDW Differential 51.2 H Plt Count 176 MPV 13.0 H Immature Gran % (Auto) 0.300 Neut % (Auto) 74.6 H Lymph % (Auto) 15.5 L [place] % (Auto) 8.5 Eos % (Auto) 0.8 Baso % (Auto) 0.3 Absolute Neuts (auto) 8.7 H Absolute Lymphs (auto) 1.82 Total Counted Not Reportable Sodium 154 H Potassium 3.8 Chloride 122 H Carbon Dioxide 23.0 Anion Gap 9 BUN 50 H Creatinine 1.50 H Estim Creat Clear Calc 36.75 Est GFR (MDRD) Af Amer 58 L Est GFR (MDRD) Non-Af 48 L BUN/Creatinine Ratio 33.3 H Glucose 309 H Hemoglobin A1c 10.1 H Calcium 8.3 L POC Glucose 05/27/18 05/27/18 05/26/18 05:48 01:58 22:57 POC Glucose 186 H 343 H 458 H* 05/26/18 05/26/18 05/26/18 17:19 14:39 10:12 POC Glucose 390 H 302 H 264 H Medical Necessity - Tobacco Use Smoking Status: Former smoker Tobacco Use: Non-smoker Assessment/Plan All Active Problems Acute metabolic encephalopathy (Acute) UTI (urinary tract infection) (Acute) Upper GI bleed (Acute) Severe sepsis (Acute) Acute renal failure (Acute) Urine retention (Acute) Hypernatremia (Acute) Dehydration (Acute) Cognitive deficits (Resolved) History of Hematemesis (Resolved) History of Ischemic Colitis (Resolved) History of tobacco use (Resolved) History of upper gastrointestinal bleeding (Resolved) Syncope (Resolved) Impressions 1. acute severe sepsis with acute metabolic encephalopathy, acute renal failure and lactic acidosis presumed to be due to aspiration in this pt with a hx of dementia and PD and chronic dysphagia not on dysphagia diet 2. Suspected upper GI bleed with coffee-ground emesis, hemoglobin is stable 3. Hypernatremia 4. Diabetes mellitus type 2-uncontrolled 5. Parkinson's disease 6. Dementia 7. Oral pharyngeal dysphagia 8. dehydration 9. CAD 10. hx of TIA 11. seizure disorder 12. macrocytic anemia 13. Acute renal failure CXR this AM continue the Zosyn DC the continuous Protonix infusion and start 40 mg IV BID Increase the Lantus to 20 units BID and change the accuchecks to AC and HS with SSI coverage TID AC Check a pulse ox on RA Await the consult by Dr. Granados to adjust the Parkinson's medications. continue the hydration and Code Visit Inpatient E&M: 11114 Subs Hosp L2
--- NOTE | 2018-05-27 08:04 | RAD_ITS ---
STUDY: X-RAY CHEST REASON FOR EXAM: Male, 78 years old. Short of breath. TECHNIQUE: Single AP portable view of the chest. COMPARISON: 05/25/2018. FINDINGS: Moderate lung volumes. There is diffuse hazy density and prominence of the bronchovascular markings in both lungs, most consistent with congestive failure and pulmonary edema. No focal infiltrates. No gross effusions. There is mild cardiac enlargement. Implanted radiation monitor seen in the left chest wall. Normal mediastinum and caitie. There is prominence of the pulmonary hilar arteries and peripheral pulmonary arteries, consistent with congestive heart failure (CHF). Normal visualized aortic arch and descending thoracic aorta. Normal visualized thoracic spine. Normal visualized ribs, clavicles, and shoulders. There is no demonstrated abnormality of the visualized soft tissue structures of the upper abdomen. RAD/Chest 1 View (Portable) IMPRESSION: Mild congestive failure and cardiomegaly since previous study. Electronically Signed: Maximiliano Bradley MD at 16:53 EST , Service support ,
[2018-05-27] MEDS: Ferrous Sulfate 325 MG Tablet PO (08:58)
[2018-05-27 09:05] LABS: Absolute Lymphocyte Count 1.54 X10^3/ul (0.83-4.51); Basophil# 0.01 X10^3/uL; Basophil% 0.1 % (0-1); Eosinophil# 0.11 X10^3/uL; Eosinophils% 1.5 % (0-5); Hematocrit 32.7 % (40-54); Hemoglobin 10.3 g/dl (13.0-16.5); Lymphocyte # 1.54 X10^3/ul (4.0); Lymphocyte % 20.4 % (19-41); Mean Corp Hgb Conc 31.5 g/gl (32-36); Mean Corpuscular Volume 95.3 fL (80-94); Mean Platelet Vol. 12.3 fl (6.2-12.0); Monocyte# 0.87 X10^3/uL; Monocyte% 11.5 % (0-10); Neutrophil # 4.99 X10^3/uL (2.7-7.7); Neutrophil % 66.2 % (47-70); Platelet Count 169 K/mm3 (150-450); RBC Distribution Width SD 51.2 fl (35.1-43.9); Red Blood Count 3.43 M/mm3 (4.6-6.2); White Blood Count 7.5 K/mm3 (4.4-11.0)
[2018-05-27 09:10] LABS: POSITIVE COUNT NO; POSITIVE DIFFERENTIAL NO; POSITIVE MORPHOLOGY NO
[2018-05-27 09:42] LABS: Anion Gap 8 (5-15); BUN 40 mg/dL (7-18); BUN/Creat Ratio 30.5 RATIO (10-20); Calcium,Total 8.3 mg/dL (8.5-10.1); Chloride 127 mmol/L (98-107); Creatinine, Serum 1.31 mg/dL (0.70-1.30); EST Glomerular Filtration Rate 56 mL/min (>60); Est Glom Filt Rate - Afr Amer 68 mL/min (>60); Estimated Creatinine Clearance 42.08 ml/min; Glucose 183 mg/dL (74-106); Potassium 3.6 mmol/L (3.5-5.1); Sodium Level 157 mmol/L (136-145)
[2018-05-27] MEDS: Escitalopram Oxalate 10 MG Tablet PO (09:44)
[2018-05-27] MEDS: levETIRAcetam 500 MG Tablet PO ×2 (09:44→21:54)
[2018-05-27] MEDS: busPIRone 15 MG TABLET PO ×2 (09:44→21:54)
[2018-05-27] MEDS: Primidone 50 MG Tablet PO ×2 (09:45→21:55)
[2018-05-27] MEDS: Senna/Docusate Sodium 1 Tablet PO (11:51)
[2018-05-27 12:00] LABS: Bedside Glucose 224 mg/dL (70-110)
--- NOTE | 2018-05-27 13:58 | PCM.CONS.GEN ---
Reason for Consult Date of Consultation: 05/27/18 Reason for Consultation: parkinsons medication adjustment History of Present Illness: The patient is a 78 year old M with a history of parkinsons, admitted with suspected uti as described below. pt unable to give any history. unable to tell me who manages his parkinsonism. per admit note:In brief, patient is a 78YO male admitted with suspected sepsis with altered mental status, suspected aspiration, coffee-ground emesis and possible UTI. His daughter tells me that he was recently treated for urinary tract infection at the long-term. 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 He has been living in the long-term for the past 2-3 years. His daughter states that he has become progressively more lethargic over the past 4-5 months has been having difficulty swallowing. He has had a hip fracture in the past was able to ambulate with a walker post repair however he is no longer able to ambulate. They have not noticed him coughing recently. They tell me that his appetite is poor and his intake has also been poor for the past few months. Vital signs of presentation to the emergency room were temperature 97.5, pulse rate 124, blood pressure 128/83, respiratory rate 14 and he was 94-97% saturated on a 2 L nasal cannula. White blood cell count was elevated at 16.1 with a left shift. Hemoglobin is low at 12.8 and the platelets are within normal limits. Sodium is increased at 154 with a chloride of 120. Serum bicarb is low at 20. The anion gap is normal at 14. BUN was 71 with a creatinine of 1.94. Creatinine on 04/30/2018 was 0.93. Random glucose was 465 and the lactic acid was elevated at 2.5. LFTs are unremarkable. The UA showed a negative leukocyte esterase and negative nitrites. Chest x-ray showed no infiltrates. It did show questionable lytic lesions in the proximal left humeral shaft. An NG tube was placed in the emergency department for complaint of coffee-ground emesis and it had coffee-ground return. The ER physician felt he probably aspirated and administered Zosyn. Past Medical History Past Medical History (Chronic Problems): Chronic Problems Hypotension (Chronic) Chronic airway obstruction (Chronic) mild 120 PY hx smoking Coronary artery disease (Chronic) History of TIAs (Chronic) Seizure disorder (Chronic) Hyperlipidemia (Chronic) Normochromic normocytic anemia (Chronic) Parkinson disease (Chronic) Diabetic peripheral neuropathy (Chronic) Gait abnormality (Chronic) History of.. 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 CVD (cerebrovascular disease) (Chronic) Hypertension (Chronic) Diabetes mellitus type 2 in nonobese (Chronic) Allergies tuberculin, purified protein deriva [From Aplisol] Allergy (Verified 05/25/18 07:41) Unknown PPD Adverse Reaction (Uncoded 09/23/17 11:20) Other Home Medications: Ambulatory Orders Medication Instructions Recorded Ferrous Sulfate 325 mg PO DAILY 08/31/15 levETIRAcetam tablet [Keppra 500 mg PO BID 08/31/15 tablet] Multivitamins,Ther W-Minerals 1 tablet PO DAILY 09/01/15 [Multivitamin With Minerals] Sitagliptin Phosphate [Januvia] 100 mg PO DAILY 09/01/15 Buspirone HCl 15 mg PO BID 10/23/15 Metformin HCl [Glucophage] 500 mg PO BIDCM 10/23/15 Omeprazole [Prilosec] 20 mg PO DAILY 10/23/15 Acetaminophen [Tylenol] 650 mg PO Q4H PRN 09/23/17 Docusate Sodium [Colace] 200 mg PO QHS 09/23/17 Escitalopram Oxalate [Lexapro] 10 mg PO DAILY 09/23/17 Guaifenesin [Robitussin] 10 ml PO Q4H PRN PRN 09/23/17 Primidone [Mysoline] 50 mg PO BID 09/23/17 Tamsulosin HCl [Flomax] 0.4 mg PO DAILY@1730 09/23/17 Carbidopa/Levodopa 25/100 [Sinemet] 1 tablet PO TIDAC 05/25/18 Ceftriaxone [Rocephin] 1 gm IV Q24 05/25/18 Sennosides/Docusate Sodium 1 each PO BID 05/25/18 [Senna-S Tablet] Surgical History: cholecystectomy, TURP, - - craniontomy for R AVM 1997 Psychiatric History: No pertinent psych hx Lives: [facility] Smoking Status: Former smoker Tobacco Use: Non-smoker Alcohol: None Drugs: None - *Family History Maternal History Items: Dementia Paternal History Items: No pertinent history, - - no premature cardiac Review of Systems Unable to obtain accurate/complete ROS d/t: unable to obtain, pt poor historian Patient Problems: Active and Suspected Problems Sepsis (Acute) UTI (urinary tract infection) (Acute) Upper GI bleed (Acute) Objective: active eye closure opens to command 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, 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 bradyphrenic cogwheels bilaterally pierre to command strength intact sensation intact dtrs 1+ toes NR bilat - Physical Exam Vital Signs Temp Pulse Resp BP Pulse Ox 36.6 C 74 16 120/74 94 05/27/18 13:52 05/27/18 13:52 05/27/18 13:52 05/27/18 13:52 05/27/18 13:52 Oxygen Flow Rate (L/min) 2 Oxygen Delivery Method Room Air Weight: 63 kg Body Mass Index (BMI) 21.7 Finger Stick Blood Glucose 441 Intake and Output for Last 24 Hours 05/25/18 05/26/18 05/27/18 23:59 23:59 23:59 Intake Total 1874.4 / 1874.4 1164.5 / 1164.5 230 / 230 Output Total 1395 / 1395 300 / 300 Balance 479.4 / 479.4 864.5 / 864.5 230 / 230 Microbiology Past 72 Hours 05/25/18 08:45 Blood Culture - Preliminary Blood Culture (Wb) - Right Wrist No growth in 48 hours. 05/25/18 07:40 Blood Culture - Preliminary Blood Culture (Wb) - Anticubital Left No growth in 48 hours. 05/25/18 12:00 Urine Culture - Final Urine Catheter - Catheter Culture exhibits no growth. 05/25/18 08:48 Urine Culture - Final Urine, Catheterized Culture exhibits no growth. Laboratory Tests Past 24 Hrs 05/26/18 05/26/18 05/27/18 13:50 13:50 08:52 WBC 11.7 H RBC 3.79 L Hgb 11.5 L Hct 37.0 L MCV 97.6 H MCH 30.3 MCHC 31.1 L RDW 15.1 H RDW Differential 51.2 H Plt Count 176 MPV 13.0 H Immature Gran % (Auto) 0.300 Neut % (Auto) 74.6 H Lymph % (Auto) 15.5 L [place] % (Auto) 8.5 Eos % (Auto) 0.8 Baso % (Auto) 0.3 Absolute Neuts (auto) 8.7 H Absolute Lymphs (auto) 1.82 Total Counted Not Reportable Sodium 154 H 157 H Potassium 3.8 3.6 Chloride 122 H 127 H* Carbon Dioxide 23.0 22.0 Anion Gap 9 8 BUN 50 H 40 H Creatinine 1.50 H 1.31 H Estim Creat Clear Calc 36.75 42.08 Est GFR (MDRD) Af Amer 58 L 68 Est GFR (MDRD) Non-Af 48 L 56 L BUN/Creatinine Ratio 33.3 H 30.5 H Glucose 309 H 183 H Calcium 8.3 L 8.3 L 05/27/18 08:58 WBC 7.5 RBC 3.43 L Hgb 10.3 L Hct 32.7 L MCV 95.3 H MCH 30.0 MCHC 31.5 L RDW 15.0 H RDW Differential 51.2 H Plt Count 169 MPV 12.3 H Immature Gran % (Auto) 0.300 Neut % (Auto) 66.2 Lymph % (Auto) 20.4 [place] % (Auto) 11.5 H Eos % (Auto) 1.5 Baso % (Auto) 0.1 Absolute Neuts (auto) 5.0 Absolute Lymphs (auto) 1.54 Total Counted Not Reportable Sodium Potassium Chloride Carbon Dioxide Anion Gap BUN Creatinine Estim Creat Clear Calc Est GFR (MDRD) Af Amer Est GFR (MDRD) Non-Af BUN/Creatinine Ratio Glucose Calcium POC Glucose 05/27/18 05/27/18 05/27/18 11:44 05:48 01:58 POC Glucose 224 H 186 H 343 H 05/26/18 05/26/18 05/26/18 22:57 17:19 14:39 POC Glucose 458 H* 390 H 302 H Current Medications Generic Name Dose Route Start Last Admin Trade Name Freq PRN Reason Stop Dose Admin Buspirone HCl 15 mg 05/26/18 10:00 02/14/19 09:44 Buspar PO 15 mg BID LEONORA Administration Carbidopa/Levodopa 1 tablet 05/26/18 11:00 05/27/18 11:51 Sinemet PO 1 tablet TIDAC LEONORA Administration Dextrose 0 gm 05/26/18 23:22 D50w Syringe IV X1 PRN Hypoglycemia Protocol Docusate Sodium 200 mg 05/26/18 22:00 05/26/18 22:53 Colace PO 200 mg QHS LEONORA Administration Escitalopram Oxalate 10 mg 05/26/18 10:00 05/27/18 09:44 Lexapro PO 10 mg DAILY LEONORA Administration Ferrous Sulfate 325 mg 05/27/18 08:00 05/27/18 08:58 Ferrous Sulfate PO 325 mg DAILY@0800 LEONORA Administration Glucagon 1 mg 05/26/18 23:22 IM .X1 PRN Hypoglycemia Guaifenesin 10 ml 05/26/18 09:31 Robitussin PO Q4H PRN PRN COUGH Piperacillin Sod/Tazobactam 50 mls @ 12.5 mls/hr 05/26/18 22:00 05/27/18 13:47 Sod 3.375 gm/ Sodium Chloride IV 12.5 mls/hr Q8 LEONORA Administration Pantoprazole Sodium 40 mg/ 110 mls @ 330 mls/hr 05/27/18 10:00 05/27/18 09:43 Sodium Chloride IV 330 mls/hr Q12 LEONORA Administration Insulin Glargine 20 units 05/27/18 10:00 05/27/18 09:45 Lantus ([facility]) SC 20 u BID LEONORA Administration Insulin Human Lispro 0 unit 05/27/18 11:00 05/27/18 11:52 Humalog Kwikpen ([facility]) SC 4 u TIDAC LEONORA Administration Protocol Levetiracetam 500 mg 05/26/18 10:00 05/27/18 09:44 Keppra Tablet PO 500 mg BID LEONORA Administration Primidone 50 mg 05/26/18 10:00 05/27/18 09:45 Mysoline PO 50 mg BID LEONORA Administration Senna/Docusate Sodium 1 tablet 05/26/18 10:00 05/27/18 11:51 Senokot-S, Daniela-Colace PO 1 tablet BID LEONORA Administration Sodium Chloride 5 - 15 ml 05/25/18 15:25 05/25/18 17:17 IV 10 ml UD PRN Administration SALINE FLUSH Tamsulosin HCl 0.4 mg 05/26/18 17:30 05/26/18 17:13 Flomax PO 0.4 mg DAILY@1730 LEONORA Administration Current Home Med List Medication Instructions Recorded Confirmed Type Ferrous Sulfate 325 mg PO DAILY 08/31/15 05/25/18 History levETIRAcetam tablet [Keppra 500 mg PO BID 08/31/15 05/25/18 History tablet] Multivitamins,Ther W-Minerals 1 tablet PO DAILY 09/01/15 05/25/18 History [Multivitamin With Minerals] Sitagliptin Phosphate [Januvia] 100 mg PO DAILY 09/01/15 05/25/18 History Buspirone HCl 15 mg PO BID 10/23/15 05/25/18 History Metformin HCl [Glucophage] 500 mg PO BIDCM 10/23/15 05/25/18 History Omeprazole [Prilosec] 20 mg PO DAILY 10/23/15 05/25/18 History Acetaminophen [Tylenol] 650 mg PO Q4H PRN 09/23/17 05/25/18 History Docusate Sodium [Colace] 200 mg PO QHS 09/23/17 05/25/18 History Escitalopram Oxalate [Lexapro] 10 mg PO DAILY 09/23/17 05/25/18 History Guaifenesin [Robitussin] 10 ml PO Q4H PRN PRN 09/23/17 05/25/18 History Primidone [Mysoline] 50 mg PO BID 09/23/17 05/25/18 History Tamsulosin HCl [Flomax] 0.4 mg PO DAILY@1730 09/23/17 05/25/18 History Carbidopa/Levodopa 25/100 [Sinemet] 1 tablet PO TIDAC 05/25/18 05/25/18 History Ceftriaxone [Rocephin] 1 gm IV Q24 05/25/18 05/25/18 History Sennosides/Docusate Sodium 1 each PO BID 05/25/18 05/25/18 History [Senna-S Tablet] Assessment/Plan All Active Problems Acute metabolic encephalopathy (Acute) Sepsis (Acute) UTI (urinary tract infection) (Acute) Upper GI bleed (Acute) Dehydration (Acute) Cognitive deficits (Resolved) History of Hematemesis (Resolved) History of Ischemic Colitis (Resolved) History of tobacco use (Resolved) History of upper gastrointestinal bleeding (Resolved) Syncope (Resolved) parkinsons, history of AVM repair, possible seizure disorder, intercurrent urosepsis changing baseline parkinsons meds in the presence of an intercurrent illness is suboptimal. medication adjustment preferable when the patient is baseline and in his usual familiar environment await clearance of medical issues therapies as feasible continue chiqui
--- NOTE | 2018-05-27 14:03 | CON.PCM_ITS ---
Reason for Consult Date of Consultation: 05/27/18 Reason for Consultation: parkinsons medication adjustment History of Present Illness: The patient is a 78 year old M with a history of parkinsons, admitted with suspected uti as described below. pt unable to give any history. unable to tell me who manages his parkinsonism. per admit note:In brief, patient is a 78YO male admitted with suspected sepsis with altered mental status, suspected aspiration, coffee-ground emesis and possible UTI. His daughter tells me that he was recently treated for urinary tract infection at the correction. 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 He has been living in the correction for the past 2-3 years. His daughter states that he has become progressively more lethargic over the past 4- 5 months has been having difficulty swallowing. He has had a hip fracture in the past was able to ambulate with a walker post repair however he is no longer able to ambulate. They have not noticed him coughing recently. They tell me that his appetite is poor and his intake has also been poor for the past few months. Vital signs of presentation to the emergency room were temperature 97.5, pulse rate 124, blood pressure 128/83, respiratory rate 14 and he was 94- 97% saturated on a 2 L nasal cannula. White blood cell count was elevated at 16.1 with a left shift. Hemoglobin is low at 12.8 and the platelets are within normal limits. Sodium is increased at 154 with a chloride of 120. Serum bicarb is low at 20. The anion gap is normal at 14. BUN was 71 with a creatinine of 1.94. Creatinine on 04/30/2018 was 0.93. Random glucose was 465 and the lactic acid was elevated at 2.5. LFTs are unremarkable. The UA showed a negative leukocyte esterase and negative nitrites. Chest x-ray showed no infiltrates. It did show questionable lytic lesions in the proximal left humeral shaft. An NG tube was placed in the emergency department for complaint of coffee-ground emesis and it had coffee-ground return. The ER physician felt he probably aspirated and administered Zosyn. Past Medical History Past Medical History (Chronic Problems): Chronic Problems Hypotension (Chronic) Chronic airway obstruction (Chronic) mild 120 PY hx smoking Coronary artery disease (Chronic) History of TIAs (Chronic) Seizure disorder (Chronic) Hyperlipidemia (Chronic) Normochromic normocytic anemia (Chronic) Parkinson disease (Chronic) Diabetic peripheral neuropathy (Chronic) Gait abnormality (Chronic) History of.. 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 CVD (cerebrovascular disease) (Chronic) Hypertension (Chronic) Diabetes mellitus type 2 in nonobese (Chronic) Allergies tuberculin, purified protein deriva [From Aplisol] Allergy (Verified 05/25/18 07:41) Unknown PPD Adverse Reaction (Uncoded 09/23/17 11:20) Other Home Medications: Ambulatory Orders Medication Instructions Recorded Ferrous Sulfate 325 mg PO DAILY 08/31/15 levETIRAcetam tablet [Keppra 500 mg PO BID 08/31/15 tablet] Multivitamins,Ther W-Minerals 1 tablet PO DAILY 09/01/15 [Multivitamin With Minerals] Sitagliptin Phosphate [Januvia] 100 mg PO DAILY 09/01/15 Buspirone HCl 15 mg PO BID 10/23/15 Metformin HCl [Glucophage] 500 mg PO BIDCM 10/23/15 Omeprazole [Prilosec] 20 mg PO DAILY 10/23/15 Acetaminophen [Tylenol] 650 mg PO Q4H PRN 09/23/17 Docusate Sodium [Colace] 200 mg PO QHS 09/23/17 Escitalopram Oxalate [Lexapro] 10 mg PO DAILY 09/23/17 Guaifenesin [Robitussin] 10 ml PO Q4H PRN PRN 09/23/17 Primidone [Mysoline] 50 mg PO BID 09/23/17 Tamsulosin HCl [Flomax] 0.4 mg PO DAILY@1730 09/23/17 Carbidopa/Levodopa 25/100 [Sinemet] 1 tablet PO TIDAC 05/25/18 Ceftriaxone [Rocephin] 1 gm IV Q24 05/25/18 Sennosides/Docusate Sodium 1 each PO BID 05/25/18 [Senna-S Tablet] Surgical History: cholecystectomy, TURP, - - craniontomy for R AVM 1997 Psychiatric History: No pertinent psych hx Lives: [facility] Smoking Status: Former smoker Tobacco Use: Non-smoker Alcohol: None Drugs: None - *Family History Maternal History Items: Dementia Paternal History Items: No pertinent history, - - no premature cardiac Review of Systems Unable to obtain accurate/complete ROS d/t: unable to obtain, pt poor historian Patient Problems: Active and Suspected Problems Sepsis (Acute) UTI (urinary tract infection) (Acute) Upper GI bleed (Acute) Objective: active eye closure opens to command perrrla, eomi vehicle glass technician intact bradyphrenic cogwheels bilaterally pierre to command strength intact sensation intact dtrs 1+ toes NR bilat - Physical Exam Vital Signs Temp Pulse Resp BP Pulse Ox 36.6 C 74 16 120/74 94 05/27/18 13:52 05/27/18 13:52 05/27/18 13:52 05/27/18 13:52 05/27/18 13:52 Oxygen Flow Rate (L/min) 2 Oxygen Delivery Method Room Air Weight: 63 kg Body Mass Index (BMI) 21.7 Finger Stick Blood Glucose 441 Intake and Output for Last 24 Hours 05/25/18 05/26/18 05/27/18 23:59 23:59 23:59 Intake Total 1874.4 / 1874.4 1164.5 / 1164.5 230 / 230 Output Total 1395 / 1395 300 / 300 Balance 479.4 / 479.4 864.5 / 864.5 230 / 230 Microbiology Past 72 Hours 05/25/18 08:45 Blood Culture - Preliminary Blood Culture (Wb) - Right Wrist No growth in 48 hours. 05/25/18 07:40 Blood Culture - Preliminary Blood Culture (Wb) - Anticubital Left No growth in 48 hours. 05/25/18 12:00 Urine Culture - Final Urine Catheter - Catheter Culture exhibits no growth. 05/25/18 08:48 Urine Culture - Final Urine, Catheterized Culture exhibits no growth. Laboratory Tests Past 24 Hrs 05/26/18 05/26/18 05/27/18 13:50 13:50 08:52 WBC 11.7 H RBC 3.79 L Hgb 11.5 L Hct 37.0 L MCV 97.6 H MCH 30.3 MCHC 31.1 L RDW 15.1 H RDW Differential 51.2 H Plt Count 176 MPV 13.0 H Immature Gran % (Auto) 0.300 Neut % (Auto) 74.6 H Lymph % (Auto) 15.5 L Wilson % (Auto) 8.5 Eos % (Auto) 0.8 Baso % (Auto) 0.3 Absolute Neuts (auto) 8.7 H Absolute Lymphs (auto) 1.82 Total Counted Not Reportable Sodium 154 H 157 H Potassium 3.8 3.6 Chloride 122 H 127 H* Carbon Dioxide 23.0 22.0 Anion Gap 9 8 BUN 50 H 40 H Creatinine 1.50 H 1.31 H Estim Creat Clear Calc 36.75 42.08 Est GFR (MDRD) Af Amer 58 L 68 Est GFR (MDRD) Non-Af 48 L 56 L BUN/Creatinine Ratio 33.3 H 30.5 H Glucose 309 H 183 H Calcium 8.3 L 8.3 L 05/27/18 08:58 WBC 7.5 RBC 3.43 L Hgb 10.3 L Hct 32.7 L MCV 95.3 H MCH 30.0 MCHC 31.5 L RDW 15.0 H RDW Differential 51.2 H Plt Count 169 MPV 12.3 H Immature Gran % (Auto) 0.300 Neut % (Auto) 66.2 Lymph % (Auto) 20.4 Wilson % (Auto) 11.5 H Eos % (Auto) 1.5 Baso % (Auto) 0.1 Absolute Neuts (auto) 5.0 Absolute Lymphs (auto) 1.54 Total Counted Not Reportable Sodium Potassium Chloride Carbon Dioxide Anion Gap BUN Creatinine Estim Creat Clear Calc Est GFR (MDRD) Af Amer Est GFR (MDRD) Non-Af BUN/Creatinine Ratio Glucose Calcium POC Glucose 05/27/18 05/27/18 05/27/18 11:44 05:48 01:58 POC Glucose 224 H 186 H 343 H 05/26/18 05/26/18 05/26/18 22:57 17:19 14:39 POC Glucose 458 H* 390 H 302 H Current Medications Generic Name Dose Route Start Last Admin Trade Name Freq PRN Reason Stop Dose Admin Buspirone HCl 15 mg 05/26/18 10:00 02/14/19 09:44 Buspar PO 15 mg BID LEONORA Administration Carbidopa/Levodopa 1 tablet 05/26/18 11:00 05/27/18 11:51 Sinemet PO 1 tablet TIDAC LEONORA Administration Dextrose 0 gm 05/26/18 23:22 D50w Syringe IV X1 PRN Hypoglycemia Protocol Docusate Sodium 200 mg 05/26/18 22:00 05/26/18 22:53 Colace PO 200 mg QHS LEONORA Administration Escitalopram Oxalate 10 mg 05/26/18 10:00 05/27/18 09:44 Lexapro PO 10 mg DAILY LEONORA Administration Ferrous Sulfate 325 mg 05/27/18 08:00 05/27/18 08:58 Ferrous Sulfate PO 325 mg DAILY@0800 LEONORA Administration Glucagon 1 mg 05/26/18 23:22 IM .X1 PRN Hypoglycemia Guaifenesin 10 ml 05/26/18 09:31 Robitussin PO Q4H PRN PRN COUGH Piperacillin Sod/Tazobactam 50 mls @ 12.5 mls/hr 05/26/18 22:00 05/27/18 13:47 Sod 3.375 gm/ Sodium Chloride IV 12.5 mls/hr Q8 LEONORA Administration Pantoprazole Sodium 40 mg/ 110 mls @ 330 mls/hr 05/27/18 10:00 05/27/18 09:43 Sodium Chloride IV 330 mls/hr Q12 LEONORA Administration Insulin Glargine 20 units 05/27/18 10:00 05/27/18 09:45 Lantus ([facility]) SC 20 u BID LEONORA Administration Insulin Human Lispro 0 unit 05/27/18 11:00 05/27/18 11:52 Humalog Kwikpen ([facility]) SC 4 u TIDAC LEONORA Administration Protocol Levetiracetam 500 mg 05/26/18 10:00 05/27/18 09:44 Keppra Tablet PO 500 mg BID LEONORA Administration Primidone 50 mg 05/26/18 10:00 05/27/18 09:45 Mysoline PO 50 mg BID LEONORA Administration Senna/Docusate Sodium 1 tablet 05/26/18 10:00 05/27/18 11:51 Senokot-S, Daniela-Colace PO 1 tablet BID LEONORA Administration Sodium Chloride 5 - 15 ml 05/25/18 15:25 05/25/18 17:17 IV 10 ml UD PRN Administration SALINE FLUSH Tamsulosin HCl 0.4 mg 05/26/18 17:30 05/26/18 17:13 Flomax PO 0.4 mg DAILY@1730 LEONORA Administration Current Home Med List Medication Instructions Recorded Confirmed Type Ferrous Sulfate 325 mg PO DAILY 08/31/15 05/25/18 History levETIRAcetam tablet [Keppra 500 mg PO BID 08/31/15 05/25/18 History tablet] Multivitamins,Ther W-Minerals 1 tablet PO DAILY 09/01/15 05/25/18 History [Multivitamin With Minerals] Sitagliptin Phosphate [Januvia] 100 mg PO DAILY 09/01/15 05/25/18 History Buspirone HCl 15 mg PO BID 10/23/15 05/25/18 History Metformin HCl [Glucophage] 500 mg PO BIDCM 10/23/15 05/25/18 History Omeprazole [Prilosec] 20 mg PO DAILY 10/23/15 05/25/18 History Acetaminophen [Tylenol] 650 mg PO Q4H PRN 09/23/17 05/25/18 History Docusate Sodium [Colace] 200 mg PO QHS 09/23/17 05/25/18 History Escitalopram Oxalate [Lexapro] 10 mg PO DAILY 09/23/17 05/25/18 History Guaifenesin [Robitussin] 10 ml PO Q4H PRN PRN 09/23/17 05/25/18 History Primidone [Mysoline] 50 mg PO BID 09/23/17 05/25/18 History Tamsulosin HCl [Flomax] 0.4 mg PO DAILY@1730 09/23/17 05/25/18 History Carbidopa/Levodopa 25/100 [Sinemet] 1 tablet PO TIDAC 05/25/18 05/25/18 History Ceftriaxone [Rocephin] 1 gm IV Q24 05/25/18 05/25/18 History Sennosides/Docusate Sodium 1 each PO BID 05/25/18 05/25/18 History [Senna-S Tablet] Assessment/Plan All Active Problems Acute metabolic encephalopathy (Acute) Sepsis (Acute) UTI (urinary tract infection) (Acute) Upper GI bleed (Acute) Dehydration (Acute) Cognitive deficits (Resolved) History of Hematemesis (Resolved) History of Ischemic Colitis (Resolved) History of tobacco use (Resolved) History of upper gastrointestinal bleeding (Resolved) Syncope (Resolved) parkinsons, history of AVM repair, possible seizure disorder, intercurrent urosepsis * changing baseline parkinsons meds in the presence of an intercurrent illness is suboptimal. medication adjustment preferable when the patient is baseline and in his usual familiar environment * await clearance of medical issues * therapies as feasible * continue kela
[2018-05-27] MEDS: Tamsulosin HCl 0.4 MG Capsule PO ×2 (16:22→23:30)
[2018-05-27 16:36] LABS: Bedside Glucose 192 mg/dL (70-110)
[2018-05-27] MEDS: Docusate Sodium 100 MG Capsule 200 MG PO (21:54)
[2018-05-27 22:11] LABS: Bedside Glucose 330 mg/dL (70-110)
[2018-05-28] VITALS (12 sets, daily range): BP systolic 106–135; BP diastolic 58–89; PULSE 74–99; RESP 15–18; TEMP 36.6–37; O2SAT 94–97
[2018-05-28 06:28] LABS: BUN 31 mg/dL (7-18); Creatinine, Serum 1.31 mg/dL (0.70-1.30); EST Glomerular Filtration Rate 56 mL/min (>60); Estimated Creatinine Clearance 42.08 ml/min; Glucose 229 mg/dL (74-106)
[2018-05-28 06:29] LABS: Anion Gap 8 (5-15); BUN/Creat Ratio 23.7 RATIO (10-20); Calcium,Total 8.5 mg/dL (8.5-10.1); Chloride 126 mmol/L (98-107); Est Glom Filt Rate - Afr Amer 68 mL/min (>60); Magnesium 2.1 mg/dL (1.6-2.6); Potassium 3.4 mmol/L (3.5-5.1); Sodium Level 159 mmol/L (136-145)
[2018-05-28 06:55] LABS: Bedside Glucose 216 mg/dL (70-110)
[2018-05-28 07:07] LABS: BNP,B-Type NATRIURETIC PEPTIDE 134.1 pg/mL (0-100)
--- NOTE | 2018-05-28 09:04 | CASEMGMT ---
Faxed updates to [facility]. Kelle NGUYEN INSIDE METER TESTER
[2018-05-28] MEDS: Carbidopa/Levodopa 25/100 Tablet PO ×3 (09:06→16:32)
[2018-05-28] MEDS: Tamsulosin HCl 0.4 MG Capsule PO ×2 (09:07→20:59)
[2018-05-28] MEDS: Primidone 50 MG Tablet PO ×2 (09:07→20:59)
[2018-05-28] MEDS: busPIRone 15 MG TABLET PO ×2 (09:07→20:59)
[2018-05-28] MEDS: levETIRAcetam 500 MG Tablet PO ×2 (09:07→20:58)
[2018-05-28] MEDS: Senna/Docusate Sodium 1 Tablet PO ×2 (09:08→20:59)
[2018-05-28] MEDS: Escitalopram Oxalate 10 MG Tablet PO (09:08)
[2018-05-28] MEDS: Ferrous Sulfate 325 MG Tablet PO (09:08)
[2018-05-28] MEDS: Insulin Lispro 100 UNIT/ML INSULN.PEN SC ×3 (09:09→16:32)
[2018-05-28] MEDS: Pantoprazole Sodium 40 MG Tablet PO (09:14)
[2018-05-28 12:31] LABS: Bedside Glucose 252 mg/dL (70-110)
--- NOTE | 2018-05-28 14:43 | CASEMGMT ---
MODESTA Calabrese at [facility] know that physician plans on discharging patient today. Kelle COLLINS
[2018-05-28 16:46] LABS: Bedside Glucose 239 mg/dL (70-110)
--- NOTE | 2018-05-28 19:43 | PCM.PROGNOTE ---
Subjective: All events of the past 24 hours of been reviewed. Afebrile Vital signs are stable 96% saturated on room air All lab was personally reviewed. Sodium remains elevated despite half-normal saline. The BUN is 31 (down from 71 at admission) today with a creatinine of 1.31, down from 1.94 to admission. Blood sugars are improving but not optimally controlled yet. Flaherty catheter was removed today and he was not able to urinate but there was only 132 cc of the bladder. Blood sugars are still not well controlled Urine and blood cultures are negative Objective: GENERAL: alert, Cooperative, NAD ORAL: moist mucosa, no mucosal lesions NECK: No JVD, supple, trachea midline LUNGS: Diminished, CTA today, not tachypneic, no conversational dyspnea, no accessory muscle use, symmetric chest expansion HEART: RRR, Normal S1 and S2, no rub, no gallop, no murmurs ABDOMEN: soft, NT, ND, BS present, no guarding with palpation EXTREMITIES: no edema, no cyanosis, no calf tenderness SKIN: No rashes, no breakdown NEUROLOGIC: no focal neurologic deficits, masked faces, + cogwheel rigidity, bradykinesia, + pill rolling tremor PSYCH: appropriate, normal affect, pleasant - Physical Exam Vital Signs Temp Pulse Resp BP Pulse Ox 98.6 F 82 16 106/58 L 96 05/28/18 15:00 05/28/18 15:03 05/28/18 15:00 05/28/18 15:00 05/28/18 15:00 Oxygen Flow Rate (L/min) 2 Oxygen Delivery Method Room Air Weight: 138 lb 14.259 oz Body Mass Index (BMI) 21.7 Finger Stick Blood Glucose 441 Intake and Output for Last 24 Hours 05/26/18 05/27/18 05/28/18 23:59 23:59 23:59 Intake Total 1164.5 / 1164.5 470 / 470 1533 / 1533 Output Total 300 / 300 400 / 400 875 / 875 Balance 864.5 / 864.5 70 / 70 658 / 658 Microbiology Past 72 Hours 05/25/18 08:45 Blood Culture - Preliminary Blood Culture (Wb) - Right Wrist No growth in 48 hours. 05/25/18 07:40 Blood Culture - Preliminary Blood Culture (Wb) - Anticubital Left No growth in 48 hours. 05/25/18 12:00 Urine Culture - Final Urine Catheter - Catheter Culture exhibits no growth. 05/25/18 08:48 Urine Culture - Final Urine, Catheterized Culture exhibits no growth. Laboratory Tests Past 24 Hrs 05/28/18 05/28/18 05:25 05:25 Sodium 159 H Potassium 3.4 L Chloride 126 H Carbon Dioxide 25.0 Anion Gap 8 BUN 31 H Creatinine 1.31 H Estim Creat Clear Calc 42.08 Est GFR (MDRD) Af Amer 68 Est GFR (MDRD) Non-Af 56 L BUN/Creatinine Ratio 23.7 H Glucose 229 H Calcium 8.5 Magnesium 2.1 B-Natriuretic Peptide 134.1 H POC Glucose 05/28/18 05/28/18 05/28/18 16:31 12:18 06:36 POC Glucose 239 H 252 H 216 H 05/27/18 21:49 POC Glucose 330 H Medical Necessity - Tobacco Use Smoking Status: Former smoker Tobacco Use: Non-smoker Assessment/Plan All Active Problems Acute metabolic encephalopathy (Acute) UTI (urinary tract infection) (Acute) Upper GI bleed (Acute) Severe sepsis (Acute) Acute renal failure (Acute) Urine retention (Acute) Hypernatremia (Acute) Dehydration (Acute) Cognitive deficits (Resolved) History of Hematemesis (Resolved) History of Ischemic Colitis (Resolved) History of tobacco use (Resolved) History of upper gastrointestinal bleeding (Resolved) Syncope (Resolved) Impressions 1. acute severe sepsis with acute metabolic encephalopathy, acute renal failure and lactic acidosis presumed to be due to aspiration in this pt with a hx of dementia and PD and chronic dysphagia not on dysphagia diet 2. Suspected upper GI bleed with coffee-ground emesis, hemoglobin is stable 3. Hypernatremia 4. Diabetes mellitus type 2-uncontrolled 5. Parkinson's disease 6. Dementia 7. Oral pharyngeal dysphagia 8. dehydration 9. CAD 10. hx of TIA 11. seizure disorder 12. macrocytic anemia 13. Acute renal failure Continue the D5W sodium is coming down he continues to retain urine - flaherty reinserted - Flomax increased to BID. Plan on discharging with the flaherty and will have the NH remove in 1 week for a voiding trial.......if he fails again will need to refer to urology Recheck the lab in the AM Insulin adjusted. Code Visit Inpatient E&M: 81519 Subs Hosp L2
[2018-05-28] MEDS: Docusate Sodium 100 MG Capsule 200 MG PO (20:59)
[2018-05-28 21:11] LABS: Bedside Glucose 286 mg/dL (70-110)
[2018-05-29] VITALS (12 sets, daily range): BP systolic 122–129; BP diastolic 59–79; PULSE 61–92; RESP 16–18; TEMP 36.4–36.6; O2SAT 94–97
--- NOTE | 2018-05-29 00:20 | NURSING ---
Pt has not voided since flaherty d/c @ 1400. Bladder scanned for >491cc. Dr. Quintero notified. Ordered to reinsert catheter at this time. 550cc of clear yellow urine noted on insertion.
[2018-05-29 06:42] LABS: Anion Gap 7 (5-15); BUN 25 mg/dL (7-18); BUN/Creat Ratio 22.1 RATIO (10-20); Calcium,Total 8.1 mg/dL (8.5-10.1); Chloride 123 mmol/L (98-107); Creatinine, Serum 1.13 mg/dL (0.70-1.30); EST Glomerular Filtration Rate 67 mL/min (>60); Est Glom Filt Rate - Afr Amer 81 mL/min (>60); Estimated Creatinine Clearance 48.78 ml/min; Glucose 236 mg/dL (74-106); Magnesium 1.8 mg/dL (1.6-2.6); Phosphorus 3.4 mg/dL (2.5-4.9); Potassium 3.1 mmol/L (3.5-5.1); Sodium Level 154 mmol/L (136-145)
[2018-05-29] MEDS: Carbidopa/Levodopa 25/100 Tablet PO ×3 (06:47→18:04)
[2018-05-29 07:01] LABS: Bedside Glucose 207 mg/dL (70-110)
[2018-05-29] MEDS: Insulin Lispro 100 UNIT/ML INSULN.PEN SC ×3 (09:25→18:08)
[2018-05-29] MEDS: levETIRAcetam 500 MG Tablet PO ×2 (09:26→21:37)
[2018-05-29] MEDS: Ferrous Sulfate 325 MG Tablet PO (09:27)
[2018-05-29] MEDS: Primidone 50 MG Tablet PO ×2 (09:27→21:36)
[2018-05-29] MEDS: Tamsulosin HCl 0.4 MG Capsule PO ×2 (09:27→21:36)
[2018-05-29] MEDS: busPIRone 15 MG TABLET PO ×2 (09:27→21:36)
[2018-05-29] MEDS: Senna/Docusate Sodium 1 Tablet PO ×2 (09:28→21:36)
[2018-05-29] MEDS: Pantoprazole Sodium 40 MG Tablet PO (09:28)
[2018-05-29] MEDS: Escitalopram Oxalate 10 MG Tablet PO (09:28)
--- NOTE | 2018-05-29 10:00 | PCM.PROGNOTE ---
Subjective: Day #5 antibiotics All events of the past 24 hours of been reviewed. Has been afebrile for several days. Vital signs are stable and he is 94-96% saturated on room air. Appetite is improving and he took 1060 orally yesterday. Flaherty catheter had to be reinserted for urine retention. Flomax was increased to 0.4 mg twice daily He was started on D5W at 100 cc/h yesterday and the sodium has improved. Sodium today is 154, down from 159 yesterday. Potassium is still low at 3.1 despite supplementation. BUN is down to 25 and his creatinine is 1.13, down from 1.31 yesterday. Blood sugars remain in the 200s and this is improving with adjustments in the insulin. Objective: GENERAL: alert, Cooperative, NAD - getting more alert by the day and more appropriate. ORAL: moist mucosa, no mucosal lesions NECK: No JVD, supple, trachea midline LUNGS: Diminished, CTA today, not tachypneic, no conversational dyspnea, no accessory muscle use, symmetric chest expansion HEART: RRR, Normal S1 and S2, no rub, no gallop, no murmurs ABDOMEN: soft, NT, ND, BS present, no guarding with palpation EXTREMITIES: no edema, no cyanosis, no calf tenderness SKIN: No rashes, no breakdown NEUROLOGIC: no focal neurologic deficits, masked faces, + cogwheel rigidity, bradykinesia, + pill rolling tremor PSYCH: appropriate, normal affect, pleasant - Physical Exam Vital Signs Temp Pulse Resp BP Pulse Ox 97.8 F 77 17 129/59 H 94 05/29/18 09:21 05/29/18 09:21 05/29/18 09:21 05/29/18 09:21 05/29/18 09:21 Oxygen Flow Rate (L/min) 2 Oxygen Delivery Method Room Air Weight: 138 lb 14.259 oz Body Mass Index (BMI) 21.7 Finger Stick Blood Glucose 441 Intake and Output for Last 24 Hours 05/27/18 05/28/18 05/29/18 23:59 23:59 23:59 Intake Total 470 / 470 1533 / 1533 1615 / 1615 Output Total 400 / 400 875 / 875 700 / 700 Balance 70 / 70 658 / 658 915 / 915 Microbiology Past 72 Hours 05/25/18 08:45 Blood Culture - Preliminary Blood Culture (Wb) - Right Wrist No growth in 48 hours. 05/25/18 07:40 Blood Culture - Preliminary Blood Culture (Wb) - Anticubital Left No growth in 48 hours. 05/25/18 12:00 Urine Culture - Final Urine Catheter - Catheter Culture exhibits no growth. 05/25/18 08:48 Urine Culture - Final Urine, Catheterized Culture exhibits no growth. Laboratory Tests Past 24 Hrs 05/29/18 05:24 Sodium 154 H Potassium 3.1 L Chloride 123 H Carbon Dioxide 24.0 Anion Gap 7 BUN 25 H Creatinine 1.13 Estim Creat Clear Calc 48.78 Est GFR (MDRD) Af Amer 81 Est GFR (MDRD) Non-Af 67 BUN/Creatinine Ratio 22.1 H Glucose 236 H Calcium 8.1 L Phosphorus 3.4 Magnesium 1.8 POC Glucose 05/29/18 05/28/18 05/28/18 06:44 20:55 16:31 POC Glucose 207 H 286 H 239 H 05/28/18 12:18 POC Glucose 252 H Medical Necessity - Tobacco Use Smoking Status: Former smoker Tobacco Use: Non-smoker Assessment/Plan All Active Problems Acute metabolic encephalopathy (Acute) UTI (urinary tract infection) (Acute) Upper GI bleed (Acute) Severe sepsis (Acute) Acute renal failure (Acute) Urine retention (Acute) Hypernatremia (Acute) Dehydration (Acute) Cognitive deficits (Resolved) History of Hematemesis (Resolved) History of Ischemic Colitis (Resolved) History of tobacco use (Resolved) History of upper gastrointestinal bleeding (Resolved) Syncope (Resolved) 1. acute severe sepsis with acute metabolic encephalopathy, acute renal failure and lactic acidosis presumed to be due to aspiration in this pt with a hx of dementia and PD and chronic dysphagia ,not on dysphagia diet - resolved, on Augmentin suspension now. 2. Suspected upper GI bleed with coffee-ground emesis, hemoglobin is stable 3. Hypernatremia 4. Diabetes mellitus type 2-uncontrolled 5. Parkinson's disease 6. Dementia 7. Oropharyngeal dysphagia 9. CAD 10. hx of TIA 11. seizure disorder 12. macrocytic anemia 13. Acute renal failure 14. hypokalemia continue to adjust the insulin continue the D5W Recheck the lab in the AM FLomax increased to BID Maintain the flaherty at DC Possible DC in the AM to the NM if the blood sugars are reasonable and the sodium is improving. Code Visit Inpatient E&M: 91560 Subs Hosp L2
[2018-05-29 12:36] LABS: Bedside Glucose 286 mg/dL (70-110)
[2018-05-29 18:16] LABS: Bedside Glucose 217 mg/dL (70-110)
[2018-05-29] MEDS: Amox/Clav 400mg/5ml Susp 875 MG PO (18:19)
[2018-05-29] MEDS: Docusate Sodium 100 MG Capsule 200 MG PO (21:39)
[2018-05-29 21:56] LABS: Bedside Glucose 285 mg/dL (70-110)
[2018-05-30] VITALS (8 sets, daily range): BP systolic 103–138; BP diastolic 59–83; PULSE 60–73; RESP 16; TEMP 36.5–36.6; O2SAT 94–99
[2018-05-30 04:25] LABS: Absolute Neutrophil Count 4.3 X10^3/uL (2.0-7.7); Basophil# 0.02 X10^3/uL; Basophil% 0.3 % (0-1); Eosinophil# 0.21 X10^3/uL; Hematocrit 30.8 % (40-54); Lymphocyte % 25.6 % (19-41); Mean Corp Hgb Conc 32.5 g/gl (32-36); Mean Corpuscular Hgb 30.8 pg (27.0-32.0); Mean Corpuscular Volume 94.8 fL (80-94); Mean Platelet Vol. 12.3 fl (6.2-12.0); Monocyte# 0.69 X10^3/uL; Monocyte% 9.8 % (0-10); Neutrophil # 4.27 X10^3/uL (2.7-7.7); Neutrophil % 60.9 % (47-70); Platelet Count 135 K/mm3 (150-450); RBC Distribution Width CV 14.5 % (11.6-14.6); RBC Distribution Width SD 47.2 fl (35.1-43.9); Red Blood Count 3.25 M/mm3 (4.6-6.2)
[2018-05-30 04:33] LABS: POSITIVE COUNT NO; POSITIVE DIFFERENTIAL NO; POSITIVE MORPHOLOGY NO
[2018-05-30 04:36] LABS: Anion Gap 8 (5-15); BUN 22 mg/dL (7-18); BUN/Creat Ratio 23.1 RATIO (10-20); Calcium,Total 7.7 mg/dL (8.5-10.1); Chloride 110 mmol/L (98-107); Creatinine, Serum 0.95 mg/dL (0.70-1.30); EST Glomerular Filtration Rate 81 mL/min (>60); Est Glom Filt Rate - Afr Amer 99 mL/min (>60); Estimated Creatinine Clearance 58.03 ml/min; Glucose 243 mg/dL (74-106); Potassium 3.5 mmol/L (3.5-5.1); Sodium Level 143 mmol/L (136-145)
[2018-05-30] MEDS: Carbidopa/Levodopa 25/100 Tablet PO ×3 (06:40→16:24)
[2018-05-30 06:51] LABS: Bedside Glucose 171 mg/dL (70-110)
[2018-05-30] MEDS: Insulin Lispro 100 UNIT/ML INSULN.PEN SC ×2 (09:43→16:25)
[2018-05-30] MEDS: levETIRAcetam 500 MG Tablet PO (09:45)
[2018-05-30] MEDS: busPIRone 15 MG TABLET PO (09:46)
[2018-05-30] MEDS: Tamsulosin HCl 0.4 MG Capsule PO (09:46)
[2018-05-30] MEDS: Senna/Docusate Sodium 1 Tablet PO (09:46)
[2018-05-30] MEDS: Escitalopram Oxalate 10 MG Tablet PO (09:46)
[2018-05-30] MEDS: Pantoprazole Sodium 40 MG Tablet PO (09:46)
[2018-05-30] MEDS: Ferrous Sulfate 325 MG Tablet PO (09:47)
[2018-05-30] MEDS: Primidone 50 MG Tablet PO (09:56)
[2018-05-30] MEDS: Amox/Clav 400mg/5ml Susp 875 MG PO ×2 (09:56→16:30)
[2018-05-30 12:06] LABS: Bedside Glucose 135 mg/dL (70-110)
--- NOTE | 2018-05-30 14:01 | NURSING ---
This RN gave update to the pt's and daughter, Jenni. Family denies any further questions at this time.
[2018-05-30 16:41] LABS: Bedside Glucose 182 mg/dL (70-110)
--- NOTE | 2018-05-30 16:57 | TREXTCAR_ITS ---
- Diet 05/26/18 10:03 Diet: Carbohydrate controlled Food consistency:: Puree Liquid Consistency:: [place] Thick Dietary Modifications:: Pureed Diet [place] Thick Liquids Is pt able to select menu?: No Diet Comments: Supervision by staff / family; use straws; meds crushed in purees; 90 degre - Routine Orders/Code Status Enema Type: Fleetz Enema Frequency: Daily PRN Suppository Type: Dulcolax 10mg Suppository Frequency: Daily PRN - Therapies Weight Bearing: Full weight bearing Physical Therapy: Eval and Treat Occupational Therapy: Eval and Treat Speech Therapy: Eval and Treat - Problem/Diagnosis (1) Severe sepsis Status: Acute Current Visit: Yes (2) Acute renal failure Status: Acute Current Visit: Yes (3) BPH (benign prostatic hyperplasia) Status: Chronic Current Visit: Yes (4) Urine retention Status: Acute Current Visit: Yes (5) Hypernatremia Status: Acute Current Visit: Yes (6) UTI (urinary tract infection) Status: Acute Current Visit: Yes (7) Upper GI bleed Status: Acute Current Visit: Yes (8) Acute metabolic encephalopathy Status: Acute Current Visit: No (9) Dehydration Status: Acute Current Visit: No (10) Alzheimer's dementia Status: Chronic Current Visit: No (11) CVD (cerebrovascular disease) Status: Chronic Current Visit: No (12) Coronary artery disease Status: Chronic Current Visit: No (13) Diabetes mellitus type 2 in nonobese Status: Chronic Current Visit: No (14) Diabetic peripheral neuropathy Status: Chronic Current Visit: No (15) Gait abnormality Status: Chronic Comment: History of.. Current Visit: No (16) H/O spontaneous intraparenchymal intracranial hemorrhage due to cerebral AVM Status: Chronic Comment: R AVM repair w craniotomy 1998 Current Visit: No (17) History of TIAs Status: Chronic Current Visit: No (18) Hx Ischemic Colitis Status: Chronic Current Visit: No (19) Hyperlipidemia Status: Chronic Current Visit: No (20) Hypertension Status: Chronic Current Visit: No (21) Hypotension Status: Chronic Current Visit: No (22) Normochromic normocytic anemia Status: Chronic Current Visit: No (23) Parkinson disease Status: Chronic Current Visit: No (24) Seizure disorder Status: Chronic Current Visit: No (25) Dysphagia Status: Chronic Current Visit: Yes - Allergies/Procedures Done in Hospital Allergies/Adverse Reactions: Allergies tuberculin, purified protein deriva [From Aplisol] Allergy (Verified 05/25/18 07:41) Unknown PPD Adverse Reaction (Uncoded 09/23/17 11:20) Other Procedures: None - Type of Care/Length of Stay Estimated LOS: More Than 30 Days Type of Care Needed: Skilled Rehab Potential: Fair Prognosis: Fair - Additional Orders/Day of Discharge Additional Orders: Sliding insulin scale coverage with Humalo-209 3 units. 210-259 6 units. 260-324 9 units. 325-374 12 units. 1. DC the flaherty for a voiding trial in 1 week. UA and urine culture when the flaherty is discontinued. Post void residual after the flaherty is discontinued and if > 250 re-insert the flaherty and make an appt with a urologist. 2. Needs to follow up with Dr. Granados or Dr. Gar from neurology to adjust the Parkinson's me ds - for rigidity, bradykinesia and pill rolling tremor. 375-409 14 units. >409 16 units H&P will serve as current which was dated: 05/25/18 Day of Discharge: 05/30/18 - Dietary and Speech Recommendations Dietitian Recommendations/Changes: Rec diet change to Carbohydrate-controlled d/t elevated gluc and hx DM - consistency/texture as per speech - Follow Up Care Primary Care Physician: Edis Ellis MD [Primary Care Provider] - Please follow up with your Primary Care Physician in: 1-2 weeks
--- NOTE | 2018-05-30 17:05 | NURSING ---
This RN called pt's daughter Jenni and left a message stating pt will be discharged tonight back to [facility].
--- NOTE | 2018-05-30 17:07 | PCM.DC.SUM ---
Discharge Date and Diagnosis - Problem List Patient Problems: Active and Suspected Problems UTI (urinary tract infection) (Acute) Upper GI bleed (Acute) Severe sepsis (Acute) Acute renal failure (Acute) Urine retention (Acute) Hypernatremia (Acute) Date of Admission: 05/25/17 Date of Discharge: 05/30/18 - Primary Discharge Diagnosis Active and Suspected Problems Upper GI bleed (Acute) Severe sepsis (Acute) - suspect due to aspiration Acute renal failure (Acute) - resolved, due to dehydration Urine retention (Acute) Hypernatremia (Acute) - resolved recent UTI on Rocephin at [place] - resolved Possible lytic lesions in the left humeral shaft - Secondary Discharge Diagnosis Chronic Problems BPH (benign prostatic hyperplasia) (Chronic) Dysphagia (Chronic) Coronary artery disease (Chronic) History of TIAs (Chronic) Seizure disorder (Chronic) Hyperlipidemia (Chronic) Normochromic normocytic anemia (Chronic) Parkinson disease (Chronic) Diabetic peripheral neuropathy (Chronic) Gait abnormality (Chronic) History of.. 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 The tip of the nasogastric tube is just distal to the gastroesophageal junction. Questionable lytic lesions in the proximal left humeral shaft. Electronically Signed: Isaac Covarrubias MD at 8:44 EST , Service support , KUB X-Ray 05/25/18 07:45 IMPRESSION: The tip of the NG tube is in the body of the stomach. Electronically Signed: Isaac Covarrubias MD at 8:44 EST , Service support , Chest X-Ray 05/27/18 08:04 IMPRESSION: Mild congestive failure and cardiomegaly since previous study. Electronically Signed: Maximiliano Bradley MD at 16:53 EST , Service support , Microbiology 05/25/18 07:40 Blood Culture (Wb) - Anticubital Left Blood Culture - Final No growth in 5 days. 05/25/18 08:45 Blood Culture (Wb) - Right Wrist Blood Culture - Final No growth in 5 days. 05/25/18 12:00 Urine Catheter - Catheter Urine Culture - Final Culture exhibits no growth. 05/25/18 08:48 Urine, Catheterized Urine Culture - Final Culture exhibits no growth. none Operations: None Procedures: None Summary of Care Provided: The patient is a 78YO male admitted to the hospital with suspected sepsis (with altered mental status and ARF), suspected aspiration, coffee-ground emesis and possible UTI ( was treated at the [place] with Rocephin). Past medical history is significant for dementia, remote peptic ulcer disease, coronary artery disease, diabetes mellitus type 2, history of spontaneous intraparenchymal cerebral hemorrhage due to a cerebral AVM intracerebral hemorrhage (he status post craniotomy with AVM repair in 1997), history of TIAs, history of ischemic colitis, hyperlipidemia, hypertension, Parkinson's disease versus parkinsonism secondary to dementia and seizure disorder. He has been living in the half-way for the past 2-3 years. His daughter stated that he had become progressively more lethargic over the preceding 4-5 months and had been having increased difficulty swallowing. He has had a hip fracture in the past and has been able to ambulate. They told me that his appetite has been poor and his intake has also been poor for the past few months. Vital signs at presentation to the emergency room were temperature 97.5, pulse rate 124, blood pressure 128/83, respiratory rate 14 and he was 94-97% saturated on a 2 L nasal cannula. White blood cell count was elevated at 16.1 with a left shift. Hemoglobin was low at 12.8 and the platelets were within normal limits. Sodium was increased at 154 with a chloride of 120. Serum bicarb was low at 20. The anion gap was normal at 14. BUN was 71 with a creatinine of 1.94. Creatinine on 04/30/2018 was 0.93. Random glucose was 465 and the lactic acid was elevated at 2.5. LFTs were unremarkable. The UA showed a negative leukocyte esterase and negative nitrites. Urine culture was negative. Chest x-ray showed no infiltrates. It did show questionable lytic lesions in the proximal left humeral shaft. An NG tube was placed in the emergency department for coffee-ground emesis and it had coffee-ground return. The ER physician felt he probably aspirated and administered Zosyn which was continued at admission. He was eventually transitioned to Augmentin Suspension. He was hydrated and the serum sodium at [facility] was 143 with a creatinine of 0.95 which is within his baseline. Leukocytosis resolved and on 05/30/2018 the white blood cell count was 7.0 with a normal differential. Hemoglobin was stable at 10.0. The platelets were mildly decreased at 135,000 and this may be secondary to Zosyn and subcutaneous heparin was used for DVT prophylaxis. When the flaherty was discontinued he had urine retention and the Flomax has been increased to BID. He should have a voiding trial in 1 week and if the urine residual is > 250 he should see a urologist. He was seen in the hospital by Dr. Granados for pill rolling tremor, bradykinesia, rigidity and dysphagia. He felt that given the acute illness it would be best to adjust his PD meds when he has recovered and is at his baseline. On 05/30/2018 he was afebrile with stable vital signs. The pulse ox on room air was 94%. He was discharged to the half-way. GENERAL: much more alert, NAD, talking with me and following commands ORAL: moist mucosa, no mucosal lesions NECK: No JVD, supple, trachea midline, no carotid bruits LUNGS: CTA , symmetric chest expansion, no wheezes, no rhonchi, no rales, not tachypneic, no conversational dyspnea, no accessory muscle use HEART: The rhythm is regular and the heart rate is within normal limits, Normal S1 and S2, no rub, no gallop, telemetry shows sinus rhythm. ABDOMEN: soft, NT, ND, BS present, no guarding with palpation EXTREMITIES: no edema, no cyanosis, no calf tenderness, peripheral pulses are mildly diminished SKIN: No rashes, no breakdown NEUROLOGIC: no focal neurologic deficits, pill-rolling tremor, cogwheel rigidity, bradykinesia PSYCH: Pleasant and appropriate This note was generated with Adim[employer]ation software. It may contain incorrect words, spelling, and punctuation that were not noted in checking the note before signing. Patient Problems: Active and Suspected Problems UTI (urinary tract infection) (Acute) Upper GI bleed (Acute) Severe sepsis (Acute) Acute renal failure (Acute) Urine retention (Acute) Hypernatremia (Acute) - Physical Exam Vital Signs Temp Pulse Resp BP Pulse Ox 97.7 F L 67 16 107/59 L 94 05/30/18 15:26 05/30/18 15:26 05/30/18 15:26 05/30/18 15:26 05/30/18 15:26 Oxygen Flow Rate (L/min) 2 Oxygen Delivery Method Room Air Weight: 138 lb 14.259 oz Body Mass Index (BMI) 21.7 Finger Stick Blood Glucose 441 Intake and Output for Last 24 Hours 05/28/18 05/29/18 05/30/18 23:59 23:59 23:59 Intake Total 1533 / 1533 4079 / 4079 1432 / 1432 Output Total 875 / 875 1100 / 1100 800 / 800 Balance 658 / 658 2979 / 2979 632 / 632 Microbiology Past 72 Hours 05/25/18 07:40 Blood Culture - Final Blood Culture (Wb) - Anticubital Left No growth in 5 days. 05/25/18 08:45 Blood Culture - Final Blood Culture (Wb) - Right Wrist No growth in 5 days. Laboratory Tests Past 24 Hrs 05/30/18 05/30/18 04:07 04:07 WBC 7.0 RBC 3.25 L Hgb 10.0 L Hct 30.8 L MCV 94.8 H MCH 30.8 MCHC 32.5 RDW 14.5 RDW Differential 47.2 H Plt Count 135 L MPV 12.3 H Immature Gran % (Auto) 0.400 Neut % (Auto) 60.9 Lymph % (Auto) 25.6 [place] % (Auto) 9.8 Eos % (Auto) 3.0 Baso % (Auto) 0.3 Absolute Neuts (auto) 4.3 Absolute Lymphs (auto) 1.80 Total Counted Not Reportable Sodium 143 Potassium 3.5 Chloride 110 H Carbon Dioxide 25.0 Anion Gap 8 BUN 22 H Creatinine 0.95 Estim Creat Clear Calc 58.03 Est GFR (MDRD) Af Amer 99 Est GFR (MDRD) Non-Af 81 BUN/Creatinine Ratio 23.1 H Glucose 243 H Calcium 7.7 L POC Glucose 05/30/18 05/30/18 05/30/18 16:22 11:38 06:43 POC Glucose 182 H 135 H 171 H 05/29/18 05/29/18 21:38 18:06 POC Glucose 285 H 217 H Home Medications: Medications to take at Discharge Ferrous Sulfate 325 mg PO DAILY 08/31/15 levETIRAcetam tablet [Keppra tablet] 500 mg PO BID 08/31/15 Multivitamins,Ther W-Minerals [Multivitamin With Minerals] 1 tablet PO DAILY 09/01/15 Sitagliptin Phosphate [Januvia] 100 mg PO DAILY 09/01/15 Buspirone HCl 15 mg PO BID 10/23/15 Metformin HCl [Glucophage] 500 mg PO BIDCM 10/23/15 Omeprazole [Prilosec] 20 mg PO DAILY 10/23/15 Acetaminophen [Tylenol] 650 mg PO Q4H PRN 09/23/17 Docusate Sodium [Colace] 200 mg PO QHS 09/23/17 Escitalopram Oxalate [Lexapro] 10 mg PO DAILY 09/23/17 Guaifenesin [Robitussin] 10 ml PO Q4H PRN PRN 09/23/17 Primidone [Mysoline] 50 mg PO BID 09/23/17 Carbidopa/Levodopa 25/100 [Sinemet 25/100] 1 tablet PO TIDAC 05/25/18 Sennosides/Docusate Sodium [Senna-S Tablet] 1 each PO BID 05/25/18 Amox/Clav 400mg/5ml Susp [Augmentin Suspension 400mg/5ml] 875 mg PO BIDCM #8 po.syringe 05/30/18 Insulin Glargine [Lantus SoloStar Pen] 20 units SC QHS pen 05/30/18 Insulin Glargine [Lantus SoloStar Pen] 30 units SC DAILY pen 05/30/18 Insulin Lispro [Humalog KwikPen] See Protocol SC TIDAC insuln.pen 05/30/18 Tamsulosin HCl [Flomax] 0.4 mg PO BID #0 05/30/18 Following Prescrptions Were Given to Patient: Amox/Clav 400mg/5ml Susp [Augmentin Suspension 400mg/5ml] 875 mg PO BIDCM #8 po.syringe Primary Care Physician: Edis Ellis MD [Primary Care Provider] - Please follow up with your Primary Care Physician in: 1-2 weeks Disposition: Custodial facility Minutes spent on discharge:: 40 Patient Condition:: Stable Medical Necessity - Tobacco Use Smoking Status: Former smoker Tobacco Use: Non-smoker Meaningful Use Info Meaningful Use Diagnoses (Choose all that apply): None applicable Code Visit Inpatient E&M: 00740 Disch Hosp
--- NOTE | 2018-05-30 17:26 | NURSING ---
This RN called to give report to ILYA De León at [facility].
--- NOTE | 2018-05-30 17:28 | DS.PCM_ITS ---
Discharge Date and Diagnosis - Problem List Patient Problems: Active and Suspected Problems UTI (urinary tract infection) (Acute) Upper GI bleed (Acute) Severe sepsis (Acute) Acute renal failure (Acute) Urine retention (Acute) Hypernatremia (Acute) Date of Admission: 05/25/17 Date of Discharge: 05/30/18 - Primary Discharge Diagnosis Active and Suspected Problems Upper GI bleed (Acute) Severe sepsis (Acute) - suspect due to aspiration Acute renal failure (Acute) - resolved, due to dehydration Urine retention (Acute) Hypernatremia (Acute) - resolved recent UTI on Rocephin at [place] - resolved Possible lytic lesions in the left humeral shaft - Secondary Discharge Diagnosis Chronic Problems BPH (benign prostatic hyperplasia) (Chronic) Dysphagia (Chronic) Coronary artery disease (Chronic) History of TIAs (Chronic) Seizure disorder (Chronic) Hyperlipidemia (Chronic) Normochromic normocytic anemia (Chronic) Parkinson disease (Chronic) Diabetic peripheral neuropathy (Chronic) Gait abnormality (Chronic) History of.. 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 The tip of the nasogastric tube is just distal to the gastroesophageal junction. Questionable lytic lesions in the proximal left humeral shaft. Electronically Signed: Isaac Covarrubias MD at 8:44 EST , Service support , KUB X-Ray 05/25/18 07:45 IMPRESSION: The tip of the NG tube is in the body of the stomach. Electronically Signed: Isaac Covarrubias MD at 8:44 EST , Service support , Chest X-Ray 05/27/18 08:04 IMPRESSION: Mild congestive failure and cardiomegaly since previous study. Electronically Signed: Maximiliano Bradley MD at 16:53 EST , Service support , Microbiology 05/25/18 07:40 Blood Culture (Wb) - Anticubital Left Blood Culture - Final No growth in 5 days. 05/25/18 08:45 Blood Culture (Wb) - Right Wrist Blood Culture - Final No growth in 5 days. 05/25/18 12:00 Urine Catheter - Catheter Urine Culture - Final Culture exhibits no growth. 05/25/18 08:48 Urine, Catheterized Urine Culture - Final Culture exhibits no growth. none Operations: None Procedures: None Summary of Care Provided: The patient is a 78YO male admitted to the hospital with suspected sepsis (with altered mental status and ARF), suspected aspiration, coffee-ground emesis and possible UTI ( was treated at the [place] with Rocephin). Past medical history is significant for dementia, remote peptic ulcer disease, coronary artery diseas e, diabetes mellitus type 2, history of spontaneous intraparenchymal cerebral hemorrhage due to a cerebral AVM intracerebral hemorrhage (he status post craniotomy with AVM repair in 1997), history of TIAs, history of ischemic colitis, hyperlipidemia, hypertension, Parkinson's disease versus parkinsonism secondary to dementia and seizure disorder. [facility]. His daughter stated that he had become progressively more lethargic over the preceding 4-5 months and had been having increased difficulty swallowing. He has had a hip fracture in the past and has been able to ambulate. They told me that his appetite has been poor and his intake has also been poor for the past few months. Vital signs at presentation to the emergency room were temperature 97.5, pulse rate 124, blood pressure 128/83, respiratory rate 14 and he was 94-97% saturated on a 2 L nasal cannula. White blood cell count was elevated at 16.1 with a left shift. Hemoglobin was low at 12.8 and the platelets were within normal limits. Sodium was increased at 154 with a chloride of 120. Serum bicarb was low at 20. The anion gap was normal at 14. BUN was 71 with a creatinine of 1.94. Creatinine on 04/30/2018 was 0.93. Random glucose was 465 and the lactic acid was elevated at 2.5. LFTs were unremarkable. The UA showed a negative leukocyte esterase and negative nitrites. Urine culture was negative. Chest x-ray showed no infiltrates. It did show questionable lytic lesions in the proximal left humeral shaft. An NG tube was placed in the emergency department for coffee-ground emesis and it had coffee-ground return. The ER physician felt he probably aspirated and administered Zosyn which was continued at admission. He was eventually transitioned to Augmentin Suspension. He was hydrated and the serum sodium at [facility] was 143 with a creatinine of 0.95 which is within his baseline. Leukocytosis resolved and on 05/30/2018 the white blood cell count was 7.0 with a normal differential. Hemoglobin was stable at 10.0. The platelets were mildly decreased at 135,000 and this may be secondary to Zosyn and subcutaneous heparin was used for DVT prophylaxis. When the flaherty was discontinued he had urine retention and the Flomax has been increased to BID. He should have a voiding trial in 1 week and if the urine residual is > 250 he should see a urologist. He was seen in the hospital by Dr. Granados for pill rolling tremor, bradykinesia, rigidity and dysphagia. He felt that given the acute illness it would be best to adjust his PD meds when he has recovered and is at his baseline. On 05/30/2018 he was afebrile with stable vital signs. The pulse ox on room air was 94%. [facility] GENERAL: much more alert, NAD, talking with me and following commands ORAL: moist mucosa, no mucosal lesions NECK: No JVD, supple, trachea midline, no carotid bruits LUNGS: CTA , symmetric chest expansion, no wheezes, no rhonchi, no rales, not tachypneic, no conversational dyspnea, no accessory muscle use HEART: The rhythm is regular and the heart rate is within normal limits, Normal S1 and S2, no rub, no gallop, telemetry shows sinus rhythm. ABDOMEN: soft, NT, ND, BS present, no guarding with palpation EXTREMITIES: no edema, no cyanosis, no calf tenderness, peripheral pulses are mildly diminished SKIN: No rashes, no breakdown NEUROLOGIC: no focal neurologic deficits, pill-rolling tremor, cogwheel rigidity, bradykinesia PSYCH: Pleasant and appropriate This note was generated with Dragon dictation software. It may contain incorrect words, spelling, and punctuation that were not noted in checking the note before signing. Patient Problems: Active and Suspected Problems UTI (urinary tract infection) (Acute) Upper GI bleed (Acute) Severe sepsis (Acute) Acute renal failure (Acute) Urine retention (Acute) Hypernatremia (Acute) - Physical Exam Vital Signs Temp Pulse Resp BP Pulse Ox 97.7 F L 67 16 107/59 L 94 05/30/18 15:26 05/30/18 15:26 05/30/18 15:26 05/30/18 15:26 05/30/18 15:26 Oxygen Flow Rate (L/min) 2 Oxygen Delivery Method Room Air Weight: 138 lb 14.259 oz Body Mass Index (BMI) 21.7 Finger Stick Blood Glucose 441 Intake and Output for Last 24 Hours 05/28/18 05/29/18 05/30/18 23:59 23:59 23:59 Intake Total 1533 / 1533 4079 / 4079 1432 / 1432 Output Total 875 / 875 1100 / 1100 800 / 800 Balance 658 / 658 2979 / 2979 632 / 632 Microbiology Past 72 Hours 05/25/18 07:40 Blood Culture - Final Blood Culture (Wb) - Anticubital Left No growth in 5 days. 05/25/18 08:45 Blood Culture - Final Blood Culture (Wb) - Right Wrist No growth in 5 days. Laboratory Tests Past 24 Hrs 05/30/18 05/30/18 04:07 04:07 WBC 7.0 RBC 3.25 L Hgb 10.0 L Hct 30.8 L MCV 94.8 H MCH 30.8 MCHC 32.5 RDW 14.5 RDW Differential 47.2 H Plt Count 135 L MPV 12.3 H Immature Gran % (Auto) 0.400 Neut % (Auto) 60.9 Lymph % (Auto) 25.6 [place] % (Auto) 9.8 Eos % (Auto) 3.0 Baso % (Auto) 0.3 Absolute Neuts (auto) 4.3 Absolute Lymphs (auto) 1.80 Total Counted Not Reportable Sodium 143 Potassium 3.5 Chloride 110 H Carbon Dioxide 25.0 Anion Gap 8 BUN 22 H Creatinine 0.95 Estim Creat Clear Calc 58.03 Est GFR (MDRD) Af Amer 99 Est GFR (MDRD) Non-Af 81 BUN/Creatinine Ratio 23.1 H Glucose 243 H Calcium 7.7 L POC Glucose 05/30/18 05/30/18 05/30/18 16:22 11:38 06:43 POC Glucose 182 H 135 H 171 H 05/29/18 05/29/18 21:38 18:06 POC Glucose 285 H 217 H Home Medications: Medications to take at Discharge Ferrous Sulfate 325 mg PO DAILY 08/31/15 levETIRAcetam tablet [Keppra tablet] 500 mg PO BID 08/31/15 Multivitamins,Ther W-Minerals [Multivitamin With Minerals] 1 tablet PO DAILY 09/01/15 Sitagliptin Phosphate [Januvia] 100 mg PO DAILY 09/01/15 Buspirone HCl 15 mg PO BID 10/23/15 Metformin HCl [Glucophage] 500 mg PO BIDCM 10/23/15 Omeprazole [Prilosec] 20 mg PO DAILY 10/23/15 Acetaminophen [Tylenol] 650 mg PO Q4H PRN 09/23/17 Docusate Sodium [Colace] 200 mg PO QHS 09/23/17 Escitalopram Oxalate [Lexapro] 10 mg PO DAILY 09/23/17 Guaifenesin [Robitussin] 10 ml PO Q4H PRN PRN 09/23/17 Primidone [Mysoline] 50 mg PO BID 09/23/17 Carbidopa/Levodopa 25/100 [Sinemet 25/100] 1 tablet PO TIDAC 05/25/18 Sennosides/Docusate Sodium [Senna-S Tablet] 1 each PO BID 05/25/18 Amox/Clav 400mg/5ml Susp [Augmentin Suspension 400mg/5ml] 875 mg PO BIDCM #8 po.syringe 05/30/18 Insulin Glargine [Lantus SoloStar Pen] 20 units SC QHS pen 05/30/18 Insulin Glargine [Lantus SoloStar Pen] 30 units SC DAILY pen 05/30/18 Insulin Lispro [Humalog KwikPen] See Protocol SC TIDAC insuln.pen 05/30/18 Tamsulosin HCl [Flomax] 0.4 mg PO BID #0 05/30/18 Following Prescrptions Were Given to Patient: Amox/Clav 400mg/5ml Susp [Augmentin Suspension 400mg/5ml] 875 mg PO BIDCM #8 po.syringe Primary Care Physician: Edis Ellis MD [Primary Care Provider] - Please follow up with your Primary Care Physician in: 1-2 weeks Disposition: Senior Living facility Minutes spent on discharge:: 40 Patient Condition:: Stable Medical Necessity - Tobacco Use Smoking Status: Former smoker Tobacco Use: Non-smoker Meaningful Use Info Meaningful Use Diagnoses (Choose all that apply): None applicable Code Visit Inpatient E&M: 01789 Disch Hosp
== END 2018-05-30 18:20 | disposition skilled nursing facility (03) | DRG 871 ==
LOC: ED 08:07 → PCU 09:39
PROVIDERS: Family Medicine; Physician Assistant; Admitting Provider Internal Medicine; Emergency Provider Emergency Medicine; Family Provider Family Medicine; PCP Family Medicine; Visit Provider Internal Medicine
DX: A41.9 Sepsis, unspecified organism (principal); G93.41 Metabolic encephalopathy; J69.0 Pneumonitis due to inhalation of food and vomit; G62.81 Critical illness polyneuropathy; N17.9 Acute kidney failure, unspecified; K92.0 Hematemesis; E87.0 Hyperosmolality and hypernatremia; T17.918A Gastric contents in respiratory tract, part unspecified causing other injury, initial encounter; R65.20 Severe sepsis without septic shock; N40.1 Benign prostatic hyperplasia with lower urinary tract symptoms; R33.8 Other retention of urine; I25.10 Atherosclerotic heart disease of native coronary artery without angina pectoris; E78.5 Hyperlipidemia, unspecified; I10 Essential (primary) hypertension; G40.909 Epilepsy, unspecified, not intractable, without status epilepticus; G20 Parkinson's disease; G30.9 Alzheimer's disease, unspecified; F02.80 Dementia in other diseases classified elsewhere, unspecified severity, without behavioral disturbance, psychotic disturbance, mood disturbance, and anxiety; E11.42 Type 2 diabetes mellitus with diabetic polyneuropathy; E11.65 Type 2 diabetes mellitus with hyperglycemia; E86.0 Dehydration; M75.82 Other shoulder lesions, left shoulder; D53.9 Nutritional anemia, unspecified; Z66 Do not resuscitate; Z79.4 Long term (current) use of insulin; Z79.899 Other long term (current) drug therapy; Z87.891 Personal history of nicotine dependence; Z86.73 Personal history of transient ischemic attack (TIA), and cerebral infarction without residual deficits
CPT/HCPCS: 36415; 51702; 71045; 74018; 80048; 80053; 80076; 81002; 82009; 82607; 82962; 83036; 83605; 83735; 83880; 84100; 84443; 85014; 85018; 85025; 85610; 85652; 85730; 86140; 86850; 86900; 87040; 87086; 92526; 92610; 93005; 97802; 99285; J7030; J7040; A4216; J3490

== ENCOUNTER → 2018-06-02 05:00 | Outpatient (REF) | payer MEDICARE, SELFPAY ==
[2018-05-25 10:18] VITALS: BMI 21.7
[2018-06-02 09:17] LABS: Anion Gap 10 (5-15); BUN 19 mg/dL (7-18); BUN/Creat Ratio 18.4 RATIO (10-20); Calcium,Total 8.1 mg/dL (8.5-10.1); Chloride 110 mmol/L (98-107); Creatinine, Serum 1.03 mg/dL (0.70-1.30); EST Glomerular Filtration Rate 74 mL/min (>60); Est Glom Filt Rate - Afr Amer 90 mL/min (>60); Glucose 83 mg/dL (74-106); Sodium Level 146 mmol/L (136-145)
[2018-06-02 09:18] LABS: Hematocrit 29.9 % (40-54); Hemoglobin 9.6 g/dl (13.0-16.5); Mean Corp Hgb Conc 32.1 g/gl (32-36); Mean Corpuscular Hgb 29.9 pg (27.0-32.0); Mean Corpuscular Volume 93.1 fL (80-94); Mean Platelet Vol. 12.9 fl (6.2-12.0); Platelet Count 144 K/mm3 (150-450); RBC Distribution Width CV 15.1 % (11.6-14.6); RBC Distribution Width SD 50.6 fl (35.1-43.9); Red Blood Count 3.21 M/mm3 (4.6-6.2); White Blood Count 5.5 K/mm3 (4.4-11.0)
[2018-06-02 09:26] LABS: Scan Indicated on CBC? Y/N NO
== END ==
LOC: OLS.WCC 05:00
PROVIDERS: Visit Provider Family Medicine
DX: D64.9 Anemia, unspecified (principal); Z79.899 Other long term (current) drug therapy
CPT/HCPCS: 36415; 80048; 85027

== ENCOUNTER → 2018-06-22 06:40 | Outpatient (REF) | payer MEDICARE, SELFPAY ==
[2018-05-25 10:18] VITALS: BMI 21.7
[2018-06-22 09:07] LABS: Absolute Lymphocyte Count 1.26 X10^3/ul (0.83-4.51); Absolute Neutrophil Count 2.1 X10^3/uL (2.0-7.7); Basophil# 0.02 X10^3/uL; Basophil% 0.4 % (0-1); Eosinophil# 0.18 X10^3/uL; Hematocrit 30.1 % (40-54); Hemoglobin 9.2 g/dl (13.0-16.5); Lymphocyte # 1.26 X10^3/ul (4.0); Lymphocyte % 27.7 % (19-41); Mean Corp Hgb Conc 30.6 g/gl (32-36); Mean Corpuscular Hgb 29.7 pg (27.0-32.0); Mean Corpuscular Volume 97.1 fL (80-94); Monocyte# 0.97 X10^3/uL; Monocyte% 21.3 % (0-10); Neutrophil # 2.09 X10^3/uL (2.7-7.7); Neutrophil % 45.9 % (47-70); Platelet Count 202 K/mm3 (150-450); RBC Distribution Width CV 15.6 % (11.6-14.6); RBC Distribution Width SD 52.2 fl (35.1-43.9); White Blood Count 4.6 K/mm3 (4.4-11.0)
[2018-06-22 09:08] LABS: POSITIVE COUNT NO; POSITIVE DIFFERENTIAL NO; POSITIVE MORPHOLOGY NO
[2018-06-22 09:26] LABS: Anion Gap 12 (5-15); BUN 25 mg/dL (7-18); BUN/Creat Ratio 26.5 RATIO (10-20); Calcium,Total 8.4 mg/dL (8.5-10.1); Chloride 106 mmol/L (98-107); Creatinine, Serum 0.94 mg/dL (0.70-1.30); EST Glomerular Filtration Rate 82 mL/min (>60); Est Glom Filt Rate - Afr Amer 99 mL/min (>60); Glucose 134 mg/dL (74-106); Potassium 3.8 mmol/L (3.5-5.1); Sodium Level 145 mmol/L (136-145)
== END ==
LOC: OLS.WCC 06:40
PROVIDERS: Visit Provider Family Medicine
DX: R50.9 Fever, unspecified (principal); R05 Cough
CPT/HCPCS: 36415; 80048; 85025

== ENCOUNTER → 2018-07-03 11:30 | Outpatient (REF) | payer MEDICARE, SELFPAY ==
[2018-05-25 10:18] VITALS: BMI 21.7
[2018-07-04 09:50] LABS: Mucous, Urine 0 SEEN /hpf (<or=2+); Red Blood Cells-Urine 0 SEEN /hpf (0-5); Squamous Epithelial Cells - UA 0 SEEN /hpf (0-5)
[2018-07-04 10:12] LABS: Color, Urine Yellow (Yellow); Glucose, Dipstick Normal (Normal); Ketone-Dipstick 5 mg/dl (Negative); Leukocyte Esterase-Dipstick 500 /ul (Negative); Nitrite-Dipstick Positive (Negative); Occult Blood-Urine 25 /ul (Negative); Protein-Dipstick 100 mg/dl (Negative); Specific Gravity, Urine 1.015 (1.002-1.030); Urine Bilirubin Dipstick Negative (Negative); Urine Clarity Sl. Cloudy (Clear); Urine Urobilinogen Normal (Normal)
[2018-07-04 10:24] LABS: Bacteria 2+ /hpf (None Seen); White Blood Cells 50-100 SEEN /hpf (0-5)
== END ==
LOC: OLS.WCC 11:30
PROVIDERS: Visit Provider Family Medicine
DX: N39.0 Urinary tract infection, site not specified (principal); R50.9 Fever, unspecified
CPT/HCPCS: 81001; 87086; 87088; 87186